=== PATIENT | female | born 1940 | race Caucasian/White ===

== ENCOUNTER 2023-01-15 09:28 | Day surgery (SDC) | payer OTHER, SELFPAY ==
[2023-01-15] MEDS: SODIUM CHLORIDE 0.9 % (FLUSH) 10 ML SYRINGE IVF (09:45)
[2023-01-15] MEDS: LACTATED RINGERS 1000 ML 1,000 ML 100 ML IV (09:45)
[2023-01-15 09:53] VITALS: BP 140/92; PULSE 72; RESP 16; TEMP 36.6; O2SAT 92; BMI 24.8
--- NOTE | 2023-01-15 09:56 | SUR.PREOP ---
Patient provided home covid negative results to RN.
--- NOTE | 2023-01-15 11:00 | CRLHL7_ITS ---
For Patients: As a result of the Century Cures Act, medical imaging exams and procedure reports are released immediately into your electronic medical record. You may view this report before your referring provider. If you have questions, please contact your health care provider. Indication: RIGHT FIRST MPJ FUSION Technique: Four fluoroscopic images of the right foot. Fluoroscopic time 12.4 seconds. IMPRESSION: Fluoroscopic guidance for fusion across the 1st MTP joint. Hardware about the 5th metatarsal and 2nd/3rd metatarsal heads. Localization of the 4th MTP joint. Dictated by Adrian Mcdonough MD @ 01/15/2023 1:20:50 PM (Electronically Signed)
[2023-01-15] MEDS: BUPIVACAINE 0.5% 30 ML INJECTION (11:28)
--- NOTE | 2023-01-15 11:43 | SUR.OPER ---
TIME OUT PERFORMED PRIOR TO INJECTION OF THE LOCAL IN THE RIGHT FOOT AT 11:27. PATIENT QUESTIONS ANSWERED SATISFACTORILY PREOPERATIVELY.? PATIENT BROUGHT TO OR #1 PER CART.? Patient positioned supine on OR #1 bed.? The perioperative?team supported arms bilaterally on arm boards.? Final approval of positioning by surgeon.
--- NOTE | 2023-01-15 12:15 | W.ANESCHARGE ---
Anesthesia Charges Start Date/Time Anesthesia Start Date: 01/15/23 Anesthesia Start Time: 11:26 Stop Date/Time Anesthesia Stop Date: 01/15/23 Anesthesia Stop Time: 13:11 Summary Extremes of Age - Over 70 or under 1: MDA
[2023-01-15 13:09] VITALS: BP 151/83; PULSE 57; RESP 16; TEMP 36.2; O2SAT 95
--- NOTE | 2023-01-15 13:13 | W.ANESCHARGE ---
Anesthesia Charges Start Date/Time Anesthesia Start Date: 01/15/23 Anesthesia Start Time: 11:26 Stop Date/Time Anesthesia Stop Date: 01/15/23 Anesthesia Stop Time: 13:11
[2023-01-15 13:15] VITALS: BP 158/82; PULSE 62; RESP 16; TEMP 36.4; O2SAT 96
[2023-01-15 13:30] VITALS: BP 175/98; PULSE 67; RESP 16; O2SAT 97
[2023-01-15 13:45] VITALS: BP 172/107; PULSE 67; RESP 16; TEMP 36.4; O2SAT 97
[2023-01-15 14:00] VITALS: BP 162/88; PULSE 69; RESP 16; O2SAT 99
--- NOTE | 2023-01-15 15:20 | P.GSOP_ITS ---
Operative Note Date of procedure: 01/15/23 Pre-op diagnosis: 1. Hallux valgus with bunion right 2. Hammertoe 4th digit right foot Post-op diagnosis: 1. Hallux valgus with bunion right 2. Hammertoe 4th digit right foot Type of Procedure: 1. First MPJ fusion right foot 2. Hammertoe correction 4th digit right foot Indications: Patient was seen on multiple occasions for right foot pain. She feels it has gotten to be unbearable and she has failed conservative efforts. She would like to proceed with surgical correction. Reviewed the procedure, recovery, expe ctations and potential complications. These include but are not limited to: Poor wound healing, infection, scarring, continued pain, potential need for future surgery, deep venous thrombosis, pulmonary embolism and possible . She understands risks, all questions answered and written consent was obtained. Procedure Description: After discussing the risks and benefits of the procedure, the patient signed informed consent.? The operative site was marked and the patient was brought to the operating room and placed on the operating table in supine position.? Care was taken to pad the patient's pressure points.?? The patient was then given sedation by anesthesia.?? The operative site was then prepped and draped in the usual sterile fashion.? A time-out was then performed. The right foot was in exsanguinated and the ankle tourniquet inflated to 250 mm Hg. A dorsal linear incision was made over the 1st metatarsophalangeal joint. Incis ion was carried down through the skin and subcutaneous tissues. A linear capsular incision was made with 1st MPJ. Capsular tissues reflected away from the proximal phalanx and 1st metatarsal. Sagittal saw was used to remove prominent medial bone from 1st metatarsal head. Guide pin was then placed in the 1st metatarsal head and cartilage and subchondral bone removed an 18 mm Reamer. Guide pin was removed and placed in the base of the proximal phalanx. Using the corresponding 18 mm Reamer the cartilage and subchondral bone were removed. Wound was irrigated normal sterile saline. In the K-wire the opposing fusion sites were fenestrated. Fusion sites were then held together and anatomic alignment simulating weight-bearing. Temporary fixation K-wire was placed from medial proximal to distal lateral. C-arm images confirmed excellent position and simulated weight-bearing confirmed excellent position. Guide pin was placed distal medial to proximal lateral across the fusion. 3.0 mm cannulated headless screw was inserted excellent compression noted across the fusion site. A dorsal 6 hole plate was then applied with 3 locking screws distal 1 locking screw proximal and 1 nonlocking screw proximal for. First metatarsal head was remodeled using rubor. Wound was thoroughly irrigated normal sterile saline. C-arm confirmed excellent position. Capsular tissues were reapproximated with 3-0 Vicryl subcutaneous tissues reapproximated 4-0 Monocryl and skin closed with 4-0 Prolene. Linear incision was made with metatarsophalangeal joint 4th toe. Blunt dissection was carried down to the extensor tendon. Tendon was extremely tight and 5 mm section releasing the tendons. Transverse incision made across the joint capsule and the lateral, medial and dorsal joint capsule released. Toe position improved but was not yet satisfactory. The cock-up toe did not seem to be result tight skin and thus I did not do a V-Y skin plasty. Simulating weight-bearing the toe sits in a rectus position. Semi elliptical incision was made over the dorsal PIPJ 4th toe. Callus tissue ellipsed and removed. Transverse incision made through extensor tendon and the mediolateral collateral ligaments released. Oscillating saw was used to resect the head of the proximal phalanx and base of the middle phalanx. Wound was thoroughly irrigated normal sterile saline. 0.045 smooth K-wire was introduced into the base of the middle phalanx driven out the tip of the toe. K-wire was then driven retrogradely back into the proximal phalanx with the fusion site tight. C-arm confirmed position. K-wire was bent cut and capped. Extensor tendon at the PIPJ reapproximated with 4-0 Vicryl. Subcutaneous tissues reapproximated 4-0 Monocryl and skin reapproximated with 4-0 Prolene. Sterile dressings were then applied.The patient was then woken and transported to the recovery area in stable condition. ? The patient tolerated the procedure well. Findings: Complications: None apparent Implants: Arthrex 6 hole 1st MPJ fusion plate, 3.0 mm locking screws x4 and 3.0 mm nonlocking screw x1, 3.0 cannulated headless screw x1, 0.045 smooth K-wire x1. l Anesthesia: MAC Surgeon: Hossein Brooks DPM Estimated blood loss (mL): 5 Condition: stable Disposition: same day
== END 2023-01-15 14:30 | disposition home or self-care (01) ==
PROVIDERS: PCP Family Medicine; Visit Provider Podiatrist
PROC: (CPT 28740; principal; 2023-01-15 11:00)
PROC: (CPT 28285; 2023-01-15 11:00)
DX: M20.11 Hallux valgus (acquired), right foot (principal); M20.41 Other hammer toe(s) (acquired), right foot; M21.611 Bunion of right foot
CPT/HCPCS: 28750; 28285; 01480; 73620; 99100; A4580; C1713; J2704; J3010; J3490; J7120

== ENCOUNTER 2025-07-16 09:49 | Emergency (ER) | payer OTHER, SELFPAY ==
--- OUTSIDE RECORDS SUMMARY | 2025-06-10 11:50 | XMS_ITS | Encounter Summary ---
Author Organization [facility] Address [address] [place] [address]. [place] [address] Care Team Providers Care Internet Researcher Name Role Phone Omar Sousa MD Primary Care Provider [phone] Reason for Visit * Auth/Cert Specialty Diagnoses / Procedures Referred By Nini sigala Referred To Contact Surgery Diagnoses Gross hematuria Gross hematuria [R31.0] Procedures GA CYSTOSCOPY W TX MINOR LESION <0.5 CM GA CYSTOURETHROSCOPY,FULGUR .5-2CM LE* GA CYSTOURETHROSCOPY,FULGUR 2-5CM LESN GA CYSTOURETHROSCOPY,FULGUR >5CM LESN GA CYSTOSCOPY,INSERT URETERAL STENT GA CYSTOURETHROSCOPY W URETERAL CATH GA UROGRAPHY, RETROGRADE W/WO KUB Cystoscopy, transurethral resection of bladder tumor bilateral retrogrades, possible right ureteral stent placement Rafiq He MD [facility] [address] [facility] [place] [address] Phone: tel: fax: [facility] [address], [address] [place] [address] Phone: tel: Referral ID Status Reason Start Date Expiration Date Visits Re quested Visits Authorized [id number] 1 1 Encounter Details Date Type Department Care Team (Latest Contact Info) Description 06/10/2025 11:50 AM CDT - 06/10/2025 6:39 PM CDT Hospital Encounter [facility] [address], [address] [place] [phone] Rafiq He MD [facility] [address] [id number] Bladder tumor (Primary Dx) Discharge Disposition: Home or Self Care Social History Tobacco Use Types Packs/Day Years Used Date Smoking Tobacco: Never Passive Smoke Exposure: Never Smokeless Tobacco: Never Tobacco Cessation:Counseling Given: Not Answered Alcohol Use Standard Drinks/Week Comments Never 0 (1 standard drink = 0.6 oz pur e alcohol) Interpersonal Safety Answer Date Record ed Do you feel physically and e motionally safe where you currently live? Yes 06/10/2025 Within the past 12 months, h ave you been hit, slapped, kicked or otherwise physically hurt by someone? No 06/10/2025 Within the past 12 months, h ave you been humiliated or emotionally abused in other ways by your partner or ex-partner? No 06/10/2025 Comments No Sex and Gender Information Value Date Recorded Sex Assigned at Not on file Legal Sex Female 3:45 AM [employer] Gender Identity Not on file Sexual Orientation Not on file documented as of this encounter Last Filed Vital Signs Vital Sign Reading Time Taken Comments Blood Pressure 171/96 06/10/2025 6:29 PM CDT Pulse 80 06/10/2025 6:29 PM CDT Temperature 36.2 C (97.2 F) 06/10/2025 6:29 PM CDT Respiratory Rate 14 06/10/2025 6:29 PM CDT Oxygen Saturation 96% 06/10/2025 6:29 PM CDT Inhaled Oxygen Concentration - - Weight 55.7 kg (122 lb 14.4 oz) 025 12:09 PM CDT Height 156.2 cm (5' 1.5) 06/10/2025 12 :09 PM CDT Body Mass Index 22.85 06/10/2025 12:09 PM CDT documented in this encounter Discharge Instructions * Discharge Instructions* Wilmar Edouard RN - 06/10/2025 4:37 PM CDT Same Day Surgery Discharge Instructions for Sedation and General Anesthesia It's not unusual to feel dizzy, light-headed or faint for up to 24 hours after surgery or while taking pain medication. If you have these symptoms: sit for a few minutes before standing and have someone assist you when you get up to walk or use the bathroom. You should rest and relax for the next 24 hours. We recommend you make arrangements to have an adult stay with you for at least 24 hours after your discharge. Avoid hazardous and strenuous activity. DO NOT DRIVE any vehicle or operate mechanical equipment for 24 hours following the end of your surgery. Even though you may feel normal, your reactions may be affected by the medication you have received. Do not drink alcoholic beverages for 24 hours following surgery. Slowly progress to your regular diet as you feel able. It's not unusual to feel nauseated and/or vomit after receiving anesthesia. If you develop these symptoms, drink clear liquids (apple juice, freddie ligia, broth, 7-up, etc. ) until you feel better. If your nausea and vomiting persists for 24 hours, please notify your surgeon. All narcotic pain medications, along with inactivity and anesthesia, can cause constipation. Drinking plenty of liquids and increasing fiber intake will help. For any questions of a medical nature, call your surgeon. Do not make important decisions for 24 hours. If you had general anesthesia, you may have a sore throat for a couple of days related to the breathing tube used during surgery. You may use Cepacol lozenges to help with this discomfort. If it worsens or if you develop a fever, contact your surgeon. If you feel your pain is not well managed with the pain medications prescribed by your surgeon, please contact your surgeon's office to let them know so they can address your concerns. Today you were given 975 mg of Tylenol at 1:00 PM. The recommended daily maximum dose is 4000 mg. Today you received Toradol, an antiinflammatory medication similar to Ibuprofen. You should not take other antiinflammatory medication, such as Ibuprofen, Motrin, Advil, Aleve, Naprosyn, etc until 11:00 PM. Cystoscopy and Stent Placement Discharge Instructions During surgery, a stent was placed in the ureter. The ureter is the tube that drains urine from thekidney to the bladder. The stent is placed to dilate (open) the ureter so the stone fragments can pass easily through the ureter or to decrease ureteral swelling after surgery, or to relieve an obstruction. The stent is made of rubber. The upper end of the stent curls in the kidney while the lower end rests in the bladder Diet: Return to the diet that you were on before the procedure, unless you are given specific diet instructions. It is important to drink 6-8 glasses of fluids per day at home - at least 3-4 glasses should be water. Activity: Walk short distances and increase as your strength allows. You may climb stairs. Do not do strenuous exercise or heavy lifting until approved by surgeon. Do not drive while taking narcotic pain medications. Bathing: You may take a shower. While the stent is in place you may experience the following symptoms: Blood and/or small blood clots in urine. Bladder spasm (frequency and urgency of urination). Discomfort or aching in the back or side where the stent is. Burning or discomfort at the end of urine stream. To decrease these symptoms you should: Take pain medication as prescribed. Drink plenty of fluids. If you experience pain at the end of urination try not emptying your bladder completely. If having discomfort in back or side, decrease activity. Call your physician if these signs/symptoms are present: Pain that is not relieved by a short rest or ordered pain medications. Temperature at or above 101.0??F or chills. Inability or difficulty urinating. Excessive blood in urine. Any questions or concerns. DISCHARGE INSTRUCTIONS FOR CATHETER CARE AT HOME . Basic Catheter Care Always wash hands before and after handling your catheter. Use soap and water to wash the area around your catheter. Do this procedure twice a day. Proper cleansing will help keep the area from becoming irritated or infected. Leg Bag This is a small plastic bag that collects urine draining from your catheter and then strapped around your thigh. It will need to be emptied when the bag is 1/2 to 3/4 full. Large Drainage Bag This bag is larger than the leg bag and holds more urine. It is to be used while at home, especially at night. Before you go to bed, change the leg bag to the large drainage bag. Pinch off the catheter with your fingers and swab the connection between the catheter and leg bag with alcohol sponge. Disconnect the leg bag and connect the large drainage bag to your catheter. When you get into bed, arrange the drainage tubing so that it doesn???t kink. Be sure to keep the bag below the level of your bladder and allow enough slack for turning. Cleaning Your Drainage Bags Wash hands. Using funnel or syringe, fill the bag half full with a solution of 1/2 vinegar and 1/2 water. Shake bag, allowing mixture to cleanse inside of bag. Empty out all vinegar and water mixture from your bag. Hang bag to dry when not in use. Clean your bags anytime you change them. Helpful Hints Always keep drainage bags below bladder level to insure adequate drainage. Drink 4-6 glasses of water daily along with other fluids you normally drink to keep urine free of infection and / or clots. If you notice no urine in your bag for 2 to 4 hours or you develop extreme discomfort in bladder area, your catheter maybe plugged. Notify your doctor. If you notice your urine becomes foul smelling and cloudy, notify your doctor. Also notify your doctor if you develop fever or chills. If you notice urine leaking around the outside of the catheter, check to be sure catheter or tubingis not kinked. Don???t use leg bag while in bed. If you have questions or concerns about your procedure, call Dr. He at [phone] documented in this encounter Medications at Time of Discharge acetaminophen (TYLENOL) [address] 650 mg rectally every 8 hours as needed for fever. artificial tears OINT ophthalmic ointment Place into both eyes as needed for dry eyes. Biotin 5000 MCG CAPS Take by mouth. Cholecalciferol (VITAMIN D3) 50 MCG (2000 UT) CAPS Take by mouth. docusate sodium (COLACE) 100 MG capsule Take 100 mg by mouth 2 times daily. furosemide (LASIX) 20 MG tablet Take 20 mg by mouth daily. losartan (COZAAR) 25 MG tablet Take 25 mg by mouth daily. metoprolol succinate ER (TOPROL XL) 25 MG 24 hr tablet Take 25 mg by mouth daily. multivitamin, therapeutic with minerals (THERA-VIT-M) TABS Take 1 tablet by mouth daily. pravastatin (PRAVACHOL) 10 MG tablet Take 10 mg by mouth daily. psyllium 400 MG capsule Take 5 capsules by mouth daily. TRAZODONE HCL PO Take 50 mg by mouth At Bedtime. Takes 1/2 of 100 mg tab cephALEXin (KEFLEX) 500 MG capsuleIndication s:Bladder tumor Take 1 capsule (500 mg) by mouth 2 times daily for 6 doses. 6 capsule 06/10/2025 5 documented as of this encounter Progress Notes * Chase Gillette RN - 06/10/2025 6:33 PM CDT Pt hypertensive post op, MDA made aware that she is due for her regular dose of metoprolol this evening. OK with her resuming normal schedule of BP meds at home and OK to discharge from phase II documented in this encounter Nursing Notes * Garret Corley RN - 06/10/2025 5:51 PM CDT Pt's bladder spasms not improving s/p oral Levsin and IV fentanyl. Pt desats to 88% RA and now using a Incentive spirometer. Discussed with Dr He about other options for her bladder spasms. Rafa recommends a B&O suppository to see how she does and then she will e-scribe a oxybutin Rx to [facility] pharmacy in [place]. If pt unable to discharge home then recall Dr He to admitpt. [facility] PACU charge aware. * Wilmar Edouard RN - 06/10/2025 5:24 PM CDT Meek cath cares with ladan Spencer at bedside- good clean technique observed- verbalizes understanding, denies questions- doesn't want leg bag for meek- documented in this encounter Miscellaneous Notes * Op Note - Rafiq He MD - 06/10/2025 3:13 PM CDT UROLOGY OPERATIVE REPORT PREOP DIAGNOSIS (D49.4) Bladder tumor (primary encounter diagnosis) Plan: cephALEXin (KEFLEX) 500 MG capsule POSTOP DIAGNOSIS Same ANESTHESIA General PROCEDURE Procedure(s): Cystoscopy, transurethral resection of bladder tumor bilateral retrogrades, and right ureteral stent placement STAFF Certified Credit Counselor: Chadd Sarabia, CARYN; Grace Burk RN Relief Scrub: Nicole Nava Scrub Person: Simran Costa Noel SURGEON Surgeon(s): Rafiq He MD FINDINGS Bladder tumors at the right bladder wall approximately 3 to 4 cm in size, signs of radiational cystitis throughout the bladder. EBL 30cc TECHNIQUE: Swapna is an 85-year-old female with a history of bladder tumor at the right ureteral orifice who presents for the above procedure with the risks of bleeding infection injury need for additional surgery. She would like to proceed. She although she also understand there is a risk of bladder perforation and need for Meek catheter postop. Details of the procedure. Swapna was brought to the operating room placed in supine position after excellent induction of general anesthesia, her perineum was prepped and draped in regular fashion. 22 Kuwaiti cystoscope was placed per her urethra. Evaluation of the bladder did demonstrate to tumorgrowth at the right bladder wall 1 cm away from the right ureteral orifice. I did obtain bilateral retrogrades that demonstrated no hydronephrosis no hydro ureters bilaterally. My concern that my resection might compromise your right ureteral orifice. So I placed 6 x 24 double-J ureteral stent overthe Glidewire on the right side under fluoroscopic guidance. Using 26 Kuwaiti sheath resectoscope I proceeded with the resection of the 2 tumors localized to theright bladder wall. At the completion of resection I did not see any gross tumor present. I also made sure that I went through the muscular layer of the bladder to harvest deep tissue. At the completion of the procedure good hemostasis was achieved 22 Kuwaiti Meek catheter was placed and patient was transferred to the recovery in stable condition. The plan is of now to remove your Meek catheter and stent in 5 days. Follow-up on the results of pathology. Rafiq He MD documented in this encounter Plan of Treatment Not on file documented as of this encounter Goals Goal Patient Goal Type Associated Problems Recent Progress Patient-Stated? Author MYC ECC SURG ENROLL Care Plan MyC ECC SURG ENROLL No Pranav Hauser documented as of this encounter Procedures Procedure Name Priority Date/Time Associated Diagnosis Comments EKG 12-LEAD, TRACING ONLY STAT 06/10/2025 4:27 PM CDT XR SURGERY JESSICA FLUORO LESS THAN 5 MIN W STILLS Routine 06/10/2025 3:59 PM CDT SURGICAL PATHOLOGY EXAM Routine 06/10/2025 3:32 PM CDT CYSTOSCOPY,INSERT URETERAL STENT 06/10/2025 2:51 PM CDT Gross hematuria Case Notes * Special Needs *60minAdded within 14 days: severity of dx Sitnikova will run jessica CYSTOSCOPY, WITH RETROGRADE PYELOGRAM 06/10/2025 2:51 PM CDT Gross hematuria Case Notes * Special Needs *60minAdded within 14 days: severity of dx Sitnikova will run jessica CYSTOSCOPY, WITH TRANSURETHRAL RESECTION BLADDER TUMOR 06/10/2025 2:51 PM CDT Gross hematuria Case Notes * Special Needs *60minAdded within 14 days: severity of dx Sitnikova will run jessica documented in this encounter Results * EKG 12-lead, tracing only (06/10/2025 4:27 PM CDT) Systolic Blood Pressure mmHg RADIOLOGY RESULTS Diastolic Blood Pressure mmHg RADIOLOGY RESULTS Ventricular Rate 63 BPM RAD IOLOGY RESULTS Atrial Rate 63 BPM RADIOLOG Y RESULTS GA Interval 134 ms RADIOLOG Y RESULTS QRS Duration 82 ms RADIOLO GY RESULTS QT 396 ms RADIOLOGY RESULTS QTc 405 ms RADIOLOGY RESULTS P [place] 41 degrees RADIOLOGY RESULTS R AXIS 11 degrees RADIOLOGY RESULTS T [place] 7 degrees RADIOLOGY RESULTS Interpretation ECG Sinus rhythm with Premature supraventricular complexes Otherwise normal ECG When compared with ECG of 17-Dec-2011 13:03, PACs are now present Confirmed by MD DEBI, ALEXOS ([id number]) on 06/11/2025 12:52:27 PM RADIOLOGY RESULTS 06/10/2025 4:27 PM CDT 06/11/2025 12:52 PM CDT us Darcie Gomes MD ECG ORDERABLES Edited Result - Final RADIOLOGY RESULTS * XR Surgery JESSICA L/T 5 Min Fluoro w Stills (06/10/2025 3:59 PM CDT) Narrative [facility] - 06/10/2025 4:00 PM CDT This exam was marked as non-reportable because it will not be read by a radiologist or a [facility] non-radiologist provider. us Rafiq He MD IMG DIAGNOSTIC IMAGING OR DERABLES Final Result [facility] * Surgical Pathology Exam (06/10/2025 3:32 PM CDT) Case Report Surgical Pathology Report Case: [id number] Authorizing Provider: Rafiq He MD Collected: 06/10/2025 03:32 PM Ordering Location: [facility] Received: 06/11/2025 06:14 AM [facility] Main OR Pathologist: Igor Aguilar MD Specimen: Urinary Bladder, Bladder Tumor 06/15/2025 5:04 PM CDT LABORATORY Final Diagnosis A. 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 Urinary Bladder, Bladder Tumor: The specimen is received in formalin, labeled with the patient's name, medical record number and other identifying information designated bladder tumor . It consists of a 2.2 x 1.5 x 0.4 cm aggregate of toro-pink soft tissue fragments which are filtered and submitted entirely in 2 cassettes.. (LOTTIE Swanson (ASCP) 06/11/2025 8:03 AM 06/15/2025 5:04 PM CDT LABORATORY Microscopic Description Microscopic examination is performed with findings supportive of the diagnosis as noted. 06/15/2025 5:04 PM T LABORATORY Performing Labs The technical component of this testing was completed at [facility]. Stain controls for all stains resulted within this report have been reviewed and show appropriate reactivity. 06/15/2025 5:04 PM T LABORATORY Case Images 06/15/2025 5:04 PM T LABORATORY Tissue URINARY BLADDER STRUCTURE / Unknown 06/10/2025 3:32 PM CDT 06/11/2025 6:14 AM CDT us Rafiq SALGADO - DANA BARNETT Final Res ult LABORATORY [facility] [address] 1[address] floor, [address] [place] [address], [facility] [phone] documented in this encounter Visit Diagnoses Diagnosis Bladder tumor- Primary Neoplasm of unspecified nature of bladder documented in this encounter Administered Medications Inactive Administered Medications - up to 3 most recent administrations Medication Order MAR Action Action Date Dose Rate Site acetaminophen (TYLENOL) tablet 975 mg 975 mg, Oral, ONCE, On Sun06/10/25 at 1230, For 1 dose, Maximum acetaminophen dose from all sources = 75 mg/kg/day not to exceed 4 grams/day., Pre-procedure $Given 06/10/2025 12:54 PM CDT 975 mg fentaNYL (PF) (SUBLIMAZE) injection 50 mcg 50 mcg, Intravenous, EVERY 5 MIN PRN, severe pain, Give fentaNYL (SUBLIMAZE) first if HYDROmorphone (DILAUDID) also ordered., Starting on Sun06/10/25 at 1555, Administer fentaNYL (SUBLIMAZE) for acute pain control. Move to HYDROmorphone (DILAUDID): - IF patient has received up to 200 mcg of fentaNYL (SUBLIMAZE), OR - IF patient has received 2 doses of fentaNYL (SUBLIMAZE) AND continues to have severe pain (pain score greater than or equal to seven (7) or is unable to participate in post op recovery due to pain. Wait 5 minutes AFTER last fentaNYL (SUBLIMAZE) dose before administering HYDROmorphone (DILADUDID). Postop Anesthesia Phase I only. Notify Provider to assess for uncontrolled pain or analgesic side effects. DO NOT revert back to fentanyl (SUBLIMAZE) after administering HYDROmorphone (DILAUDID)., PACU $Given 06/10/2025 5:18 PM CDT 50 mcg $Given 06/10/2025 4:28 PM CDT 50 mcg $Given 06/10/2025 4:14 PM CDT 50 mcg hyoscyamine (LEVSIN/SL) sublingual tablet 125 mcg 125 mcg, Sublingual, ONCE, On Sun06/10/25 at 1700, For 1 dose, Patients using antacids should take hyoscyamine before meals and the antacid after meals., PACU $Given 06/10/2025 4:48 PM CDT 125 mcg iopamidol (ISOVUE-300) IV solution 61% PRN, Starting on Sun06/10/25 at 1527, Intra-procedure $Given 06/10/2025 3:27 PM CDT 20 mLs Operative Site/Surgical Site ketorolac (TORADOL) injection 15 mg 15 mg, Intravenous, ONCE, On Sun06/10/25 at 1700, For 1 dose, Can cause pain on injection. If ordered intravenously (IV) : administer through a running maintenance fluid over 1 minute followed by a flush. If patient complains of pain on injection, may dilute 15-30 mg in 5 mL and push over 1 to 2 minutes., PACU $Given 06/10/2025 4:52 PM CDT 15 mg lactated ringers infusion at 100 mL/hr, Intravenous, CONTINUOUS, Continue until IV catheter is weaned, PACU, Starting on Sun06/10/25 at 1600, Until Sun06/10/25 at 1828 $New Bag 06/10/2025 5:22 PM CDT 100 mL/hr opium-belladonna (B&O SUPPRETTES) 30-16.2 MG per suppository 1 suppository 1 suppository (30 mg), Rectal, ONCE, On Sun06/10/25 at 1830, For 1 dose, PACU $Given 06/10/2025 6:16 PM CDT 1 suppository sodium chloride 0.9% (bottle) irrigation PRN, Starting on Sun06/10/25 at 1512, Intra-procedure $Given 06/10/2025 3:12 PM CDT 1,000 mLs sodium chloride 0.9% irrigation (bag) PRN, Starting on Sun06/10/25 at 1512, Intra-procedure $Given 06/10/2025 3:34 PM CDT 3,000 mLs Operative Site/Surgical Site $Given 06/10/2025 3:12 PM CDT 3,000 mLs Op erative Site/Surgical Site documented in this encounter Active and Recently Administered Medications Times are shown in CDT. Scheduled Medication Order 06/08/2025 06/09/2025 06/10/2025 acetaminophen (TYLENOL) tablet 975 mg (COMPLETED)(Linked Group 1) 975 mg, Oral, ONCE, On Sun06/10/25 at 1230, For 1 dose, Maximum acetaminophen dose from all sources = 75 mg/kg/day not to exceed 4 grams/day., Pre-procedure 1254 ($Given - Provi ramesh: Pura Richards RN) ceFAZolin Sodium (ANCEF) injection 2 g (COMPLETED) Routine, 2 g, Intravenous, PRE-OP/PRE-PROCEDURE, Starting on Sun06/10/25 at 1203, For 1 dose, Give first dose within 1 hour PRIOR to incision. If patient weight is greater than or equal to 120 kg increase dose to 3 g., Indications: Perioperative Pharmacoprophylaxis, Pre-procedure 1455 ($Given - Provi ramesh: Munira Alegre APRN SUPERVISOR TYPESETTING) hyoscyamine (LEVSIN/SL) sublingual tablet 125 mcg (COMPLETED) 125 mcg, Sublingual, ONCE, On Sun06/10/25 at 1700, For 1 dose, Patients using antacids should take hyoscyamine before meals and the antacid after meals., PACU 1648 ($Given - Provi ramesh: Wilmar Edouard, CARYN) ketorolac (TORADOL) injection 15 mg (COMPLETED) 15 mg, Intravenous, ONCE, On Sun06/10/25 at 1700, For 1 dose, Can cause pain on injection. If ordered intravenously (IV) : administer through a running maintenance fluid over 1 minute followed by a flush. If patient complains of pain on injection, may dilute 15-30 mg in 5 mL and push over 1 to 2 minutes., PACU 1652 ($Given - Provi ramesh: Wilmar Edouard, CARYN) opium-belladonna (B&O SUPPRETTES) 30-16.2 MG per suppository 1 suppository (COMPLETED) 1 suppository (30 mg), Rectal, ONCE, On Sun06/10/25 at 1830, For 1 dose, PACU 1816 ($Given - Provi ramesh: Garret Corley RN) Continuous Medication Order 06/08/2025 06/09/2025 06/10/2025 lactated ringers infusion (CANCELED) at 100 mL/hr, Intravenous, CONTINUOUS, Continue until IV catheter is weaned, PACU, Starting on Sun06/10/25 at 1600, Until Sun06/10/25 at 1828 1722 ($New Bag - Pro vider: Wilmar Edouard, CARYN) PRN Medication Order 06/08/2025 06/09/2025 06/10/2025 fentaNYL (PF) (SUBLIMAZE) injection 50 mcg (CANCELED) 50 mcg, Intravenous, EVERY 5 MIN PRN, severe pain, Give fentaNYL (SUBLIMAZE) first if HYDROmorphone (DILAUDID) also ordered., Starting on Sun06/10/25 at 1555, Administer fentaNYL (SUBLIMAZE) for acute pain control. Move to HYDROmorphone (DILAUDID): - IF patient has received up to 200 mcg of fentaNYL (SUBLIMAZE), OR - IF patient has received 2 doses of fentaNYL (SUBLIMAZE) AND continues to have severe pain (pain score greater than or equal to seven (7) or is unable to participate in post op recovery due to pain. Wait 5 minutes AFTER last fentaNYL (SUBLIMAZE) dose before administering HYDROmorphone (DILADUDID). Postop Anesthesia Phase I only. Notify Provider to assess for uncontrolled pain or analgesic side effects. DO NOT revert back to fentanyl (SUBLIMAZE) after administering HYDROmorphone (DILAUDID)., PACU 1604 ($Given - Provi ramesh: Wilmar Edouard RN)1614 ($Given - Provider: Wilmar Edouard RN)1628 ($Given - Provider: Wilmar Edouard RN)1718 ($Given - Provider: Wilmar Edouard RN) iopamidol (ISOVUE-300) IV solution 61% PRN, Starting on Sun06/10/25 at 1527, Intra-procedure 1527 ($Given - Provi ramesh: Rafiq He MD) sodium chloride 0.9% (bottle) irrigation PRN, Starting on Sun06/10/25 at 1512, Intra-procedure 1512 ($Given - Provi ramesh: Rafiq He MD) sodium chloride 0.9% irrigation (bag) PRN, Starting on Sun06/10/25 at 1512, Intra-procedure 1512 ($Given - Provi ramesh: Rafiq He MD)1534 ($Given - Provider: Rafiq He MD) Linked Groups Order Group 1: acetaminophen (TYLENOL) tablet 975 mg (COMPLETED)Jump to med 975 mg, Oral, ONCE, On Sun06/10/25 at 1230, For 1 dose, Maximum acetaminophen dose from all sources = 75 mg/kg/day not to exceed 4 grams/day., Pre-procedure Or acetaminophen (TYLENOL) Suppository 650 mg (COMPLETED) 650 mg, Rectal, ONCE, On Sun06/10/25 at 1230, For 1 dose, Maximum acetaminophen dose from all sources = 75 mg/kg/day not to exceed 4 grams/day., Pre-procedure documented in this encounter Additional Health Concerns Active Problems Noted Date Diagnosed Date MyC ECC SURG ENROLL 06/04/2025 documented as of this encounter Care Teams Internet Researcher Relationship Specialty Start Date End Date Omar Sousa MD [address] [place] [address] PCP - General Sports Medicine 06/05/25 documented as of this encounter
--- OUTSIDE RECORDS SUMMARY | 2025-06-10 14:52 | XMS_ITS | Encounter Summary ---
Author Organization [facility] Address [address] [place], [place] [address]. [place] [address] Care Team Providers Care Furnace Loader Name Role Phone Omar Sousa MD Primary Care Provider Reason for Visit * Auth/Cert Specialty Diagnoses / Procedures Referred By Nini sigala Referred To Contact Surgery Diagnoses Gross hematuria Gross hematuria [R31.0] Procedures UT CYSTOSCOPY W TX MINOR LESION <0.5 CM UT CYSTOURETHROSCOPY,FULGUR .5-2CM LE* UT CYSTOURETHROSCOPY,FULGUR 2-5CM LESN UT CYSTOURETHROSCOPY,FULGUR >5CM LESN UT CYSTOSCOPY,INSERT URETERAL STENT UT CYSTOURETHROSCOPY W URETERAL CATH UT UROGRAPHY, RETROGRADE W/WO KUB Cystoscopy, transurethral resection of bladder tumor bilateral retrogrades, possible right ureteral stent placement Rafiq He MD [facility] [address] [place] [address] Phone: tel: fax: [facility] [address] [place] [address] Phone: tel: Referral ID Status Reason Start Date Expiration Date Visits Re quested Visits Authorized [id number] 1 1 Encounter Details Date Type Department Care Team (Late st Contact Info) Description 06/10/2025 2:52 PM CDT Anesthesia Event [facility] [address], [address] [place] [address] Darcie Gomes MD [facility] [address] [id number] Justa Lombardo APRN STRUCTURAL IRON WORKER [address] [id number] Anesthesia Record Procedure Summary Procedure Name Responsible Anesthesiologist Anesthesia Start Time Anesthesia Stop Time Cystoscopy, transurethral resection of bladder tumor (Urethra) Darcie Gomes MD 06/10/25 1452 06/10/25 1559 Events Date Time Event Comment 06/10/2025 1317 1343 STRUCTURAL IRON WORKER Ready for Procedure 1452 An Start Anesthesia Star t is defined as when the anesthesia provider assumed care, began anesthesia prep, remained continuously present with the patient, and excludes all time for performing the pre-anesthesia evaluation. The Pre-Anesthesia Evaluation was completed before Anesthesia Start. 1452 An Start Data 1454 AN REASSESS I attest that I have identified and re-evaluated the patient immediately before the induction of anesthesia and I am satisfied that the anesthetic plan is suitable for the patient's condition and procedure. The first vital signs recorded are pre-induction. Munira Alegre APRN STRUCTURAL IRON WORKER 1458 An Induction 1500 An LMA 1507 Anesthesia Ready for Procedu re 1513 AN INCISION 1551 LMA Removed 1553 an stop data 1559 An Stop Electronically signed by Munira Alegre APRN STRUCTURAL IRON WORKER on June 10, 2025 3:59 PM Meds Name Total fentaNYL 50 mcg/mL 100 mcg lidocaine 2% 60 mg propofol 10 mg/mL 200 mg ondansetron 2 mg/mL 4 mg ceFAZolin Sodium (ANCEF) injection 2 g 2 g LR 800 mL * Agents Name O2 N2O Air Exp Sevoflurane Exp Isoflurane Exp Desflurane O2 Delivery Device Ins Sevoflurane Ins Isoflurane Ins Desflurane O2 Auxiliary * Blood No blood administrations on file. Lines, Drains, and Airways Type Details Placement Removal Peripheral IV 12/17/11; 1400; 18 G ; Right; Lower forearm 12/17/11 1400 by Mai Little NP 06/10/25 1939 by Inpatient, Nurse Peripheral IV 06/10/25; 1305; 20 G ; Right; Hand 06/10/25 1305 by Pura Richards RN 06/10/25 1836 by Chase Gillette RN Supraglottic Airway Placement Date: 06/10/25; Placement Time: 150 (created via procedure documentation); Mask Ventilation: 0; LMA Size: 4; Airway Brand: Ambu AuraGain; Attempts: 1 06/10/25 1509 by Munira Alegre APRN STRUCTURAL IRON WORKER 06/10/25 1551 by Munira Alegre APRN STRUCTURAL IRON WORKER Urinary Drain 06/10/25; 1546; Urethral Catheter; No; Surgical procedure; 22 fr 06/10/25 1546 by Chadd Sarabia RN 06/10/25 1939 by Inpatient, Nurse documented in this encounter Social History Tobacco Use Types Packs/Day Years Used Date Smoking Tobacco: Never Passive Smoke Exposure: Never Smokeless Tobacco: Never Alcohol Use Standard Drinks/Week Comments Never 0 [...] on file 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 status CV/Hemodynamics: Uneventful Sign Out: Acceptable CV status; No obvious hypovolemia; No obvious fluid overload Other NRE: NONE DID A NON-ROUTINE EVENT OCCUR? No Last vitals: Vitals Value Taken Time BP 175/96 06/10/25 18:15 Temp Pulse 84 06/10/25 18:15 Resp 16 06/10/25 17:15 SpO2 97 % 06/10/25 18:15 Electronically Signed By: Newton Taylor DO June 10, 2025 8:39 PM * Anesthesia Procedure Notes - Munira Alegre APRN CRNA - 06/10/2025 3:08 PM CDTAssociated Order(s): Airway Airway Patient location during procedure: OR Staff - Anesthesiologist: Darcie Gomes MD STRUCTURAL IRON WORKER: Munira Alegre APRN STRUCTURAL IRON WORKER Performed By: CRNAIndications and Patient Condition Indications for airway management: carmen-procedural Induction type:intravenous Mask difficulty assessment: 0 - not attempted Final Airway Details Final airway type: supraglottic airway Supraglottic Airway Details Type: LMA Brand: Ambu AuraGain LMA size: 4 Post intubation assessment Placement verified by: capnometry, equal breath sounds and chest rise Number of attempts at approach: 1 Ease of procedure: easy Dentition: Intact and Unchanged * Anesthesia Preprocedure Evaluation - Darcie Gomes MD - 06/10/2025 11:39 AM CDT Anesthesia Pre-Procedure Evaluation Patient: Swapna Ortiz : 1940 Procedure : Procedure(s): Cystoscopy, transurethral resection of bladder tumor bilateral retrogrades, possible right ureteral stent placement Past Medical History: Diagnosis Date Acute lower GI bleeding AMD (age related macular degeneration) Aortic valve regurgitation Arthritis Bilateral pseudophakia Chronic right shoulder pain Colon polyp DDD (degenerative disc disease), lumbar Dry eye syndrome of both eyes Endometrial cancer (H) Epiphora due to insufficient drainage of both sides Fibromyalgia Fuchs' corneal dystrophy Gastric polyps Greater trochanteric bursitis of left hip Hyperlipidemia Insomnia 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 Meningioma (H) Osteopenia Pancreatic lesion Primary osteoarthritis of hips, bilateral Pseudoexfoliation of lens capsule Restless legs syndrome (RLS) Rheumatic fever Vision problems Past Surgical History: Procedure Laterality Date 5TH METATARSAL REPAIR, SUBTALAR ATHROEREISIS Right 2003 MIRIAM CAPELLAN FRACTURE Left 2006 BREAST MASS EXCISION Right 2017 BREAST REDUCTION 2003 BUNIONECTOMY Right 2022 CATARACT REMOVAL Bilateral 2014 COLONOSCOPY 2017 COLONOSCOPY 2018 COLONOSCOPY DIAGNOSTIC 2012 COLONOSCOPY DIAGNOSTIC 2013 COLONOSCOPY DIAGNOSTIC 2021 COLONOSCOPY, SCREENING 2010 HAMMER TOE REPAIR Right 2022 HAMMER TOE REPAIR Left 2012 HYSTEROSCOPY DILATION AND CURRETTAGE WITH BOYKIN & NEPHOn-Ramp Wireless MORCELLATOR 2014 LIGATE FALLOPIAN TUBE ROBOTIC ASSISTED TOTAL LAPAROSCOPIC HYSTERECTOMY, BILATERAL SALPINGO OOPHORECTOMY, AND LYMPH NODE DISSECTION AND WASHINGS 2014 TONSILLECTOMY TOOTH EXTRACTION Right 2018 TOTAL HIP ARTHROPLASTY Right 2020 TOTAL HIP ARTHROPLASTY Left 07/2024 WISDOM TEETH EXTRACTION YAG CAPSULOTOMY Bilateral 2019 Allergies Allergen Reactions Oxycodone-Acetaminophen Propoxyphene Hcl Mental Status Change Sodium Phosphate Nausea and Vomiting Social History Tobacco Use Smoking status: Never Passive exposure: Never Smokeless tobacco: Never Substance Use Topics Alcohol use: Never Wt Readings from Last 1 Encounters: 01/05/14 58.1 kg (128 lb) Anesthesia Evaluation Pt has had prior anesthetic. Type: General. No history of anesthetic complications ROS/MED HX ENT/Pulmonary: Neurologic: (-) no seizures, no CVA and migraines Cardiovascular: (+) Dyslipidemia hypertension- - - - - fainting (syncope). valvular problems/murmurs type: AI Mild.Previous cardiac testing Echo: Date: 11/07/24 Results: Final Impressions: 1. Normal left ventricular size, normal wall thickness, normal global systolic function, calculatedEF of 55 %. 2. Mildly enlarged left atrium. 3. The aortic valve is trileaflet and sclerotic, no stenosis and mild to moderate regurgitation. 4. The mitral valve is normal, mild to moderate mitral regurgitation. 5. Moderate-severe tricuspid regurgitation. 6. Moderately increased estimated pulmonary pressures by tricuspid regurgitation velocity and rightatrial pressure (44 mmHg plus RAP). Stress Test: Date: Results: ECG Reviewed: Date: Results: Cath: Date: Results: METS/Exercise Tolerance: >4 METS Hematologic: Musculoskeletal: Comment: Fibromyalgia GI/Hepatic: (-) GERD Renal/Genitourinary: Endo: Psychiatric/Substance Use: Infectious Disease: Malignancy: (+) Malignancy, History of Other.Other CA Bladder, endometrial status post. Other: Physical Exam Airway Mallampati: II TM distance: >3 FB Mouth opening: >= 4 cm Cardiovascular - normal exam Dental dental implants, bridges or caps present Pulmonary - normal examBreath sounds clear to auscultation Neurological - normal exam She appears awake, alert and oriented x3. Other Findings OUTSIDE LABS: CBC: Lab Results Component Value Date WBC 12.0 (H) 12/17/2011 HGB 11.1 (L) 12/17/2011 HCT 34.9 (L) 12/17/2011 PLT 242 12/17/2011 BMP: Lab Results Component Value Date NA 139 12/17/2011 POTASSIUM 4.8 12/17/2011 CHLORIDE 106 12/17/2011 CO2 28 12/17/2011 BUN 14 12/17/2011 CR 0.65 12/17/2011 GLC 91 12/17/2011 COAGS: Lab Results Component Value Date PTT 29 12/17/2011 INR 0.95 12/17/2011 POC: No results found for: BGM, HCG, HCGS HEPATIC: No results found for: ALBUMIN, PROTTOTAL, ALT, AST, GGT, ALKPHOS, BILITOTAL,BILIDIRECT, DANIEL OTHER: Lab Results Component Value Date LACT 0.8 12/17/2011 CHALO 8.0 (L) 12/17/2011 TSH 0.91 12/17/2011 Anesthesia Plan ASA Status: 3 NPO Status: NPO Appropriate Anesthesia Type: General. Airway: supraglottic airway. Induction: intravenous. Maintenance: Balanced. Techniques and Equipment: - Airway: Planned airway equipment includes supraglottic airway. - Monitoring Plan: standard ASA monitoring Consents Anesthesia Plan(s) and associated risks, benefits, and realistic alternatives discussed. Questions answered and patient/telesales representative(s) expressed understanding. - Discussed: - Discussed with: Patient Postoperative Care Pain management: multimodal analgesia. Comments: Darcie Gomes MD I have reviewed the pertinent notes and labs in the chart from the past 30 days and (re)examined the patient. Any updates or changes from those notes are reflected in this note. Clinically Significant Risk Factors Present on Admission # Hypertension: Home medication list includes antihypertensive(s) documented in this encounter Miscellaneous Notes * Anesthesia Care Transfer Note - Munira Alegre APRN CRNA - 06/10/2025 3:59 PM CDT Patient: Swapna Ortiz Procedure: Procedure(s): Cystoscopy, transurethral resection of bladder tumor bilateral retrogrades, and right ureteral stent placement Diagnosis: Gross hematuria [R31.0] Diagnosis Additional Information: No value filed. Anesthesia Type: General Note: Oropharynx: oropharynx clear of all foreign objects and spontaneously breathing Level of Consciousness: awake Oxygen Supplementation: face mask Level of Supplemental Oxygen (L/min / FiO2): 6 Independent Airway: airway patency satisfactory and stable Dentition: dentition unchanged Vital Signs Stable: post-procedure vital signs reviewed and stable Report to RN Given: handoff report given Patient transferred to: PACU Comments: At end of procedure, spontaneous respirations, adequate tidal volumes, followed commands to voice, LMA removed atraumatically, oropharynx suctioned, airway patent after LMA removal. Oxygen via facemask at 6 liters per minute to PACU. Oxygen tubing connected to wall O2 in PACU, SpO2, NiBP,and EKG monitors and alarms on and functioning, Diony Hugger warmer connected to patient gown, report on patient's clinical status given to SUSTAINABILITY SPECIALIST, RN questions answered. Handoff Report: Identifed the Patient, Identified the Reponsible Provider, Reviewed the pertinent medical history, Discussed the surgical course, Reviewed Intra-OP anesthesia mangement and issues during anesthesia, Set expectations for post-procedure period and Allowed opportunity for questions andacknowledgement of understanding Vitals: Vitals Value Taken Time BP 180/97 Temp Pulse 82 Resp 18 06/10/25 15:58 SpO2 100 % 06/10/25 15:58 Vitals shown include unfiled device data. Electronically Signed By: Munira Alegre APRN CRNA June 10, 2025 3:59 PM documented in this encounter Plan of Treatment Not on file documented as of this encounter Goals Goal Patient Goal Type Associated Problems Recent Progress Patient-Stated? Author MYC ECC SURG ENROLL Care Plan MyC ECC SURG ENROLL No KirbyPranav pickens Radha documented as of this encounter Procedures Procedure Name Priority Date/Time Associated Diagnosis Comments ANE AIRWAY SUPRAGLOTTIC PERFORMABLE Routine 06/10/2025 3:08 PM CDT documented in this encounter Results * ANE AIRWAY SUPRAGLOTTIC PERFORMABLE (06/10/2025 3:08 PM CDT) Narrative Munira Alegre APRN STRUCTURAL IRON WORKER - 06/10/2025 3:08 PM CDT Munira Alegre APRN STRUCTURAL IRON WORKER 06/10/2025 3:09 PM Airway Patient location during procedure: OR Staff - Anesthesiologist: Darcie Gomes MD STRUCTURAL IRON WORKER: Munira Alegre APRN STRUCTURAL IRON WORKER Performed By: CRNAIndications and Patient Condition Indications for airway management: carmen-procedural Induction type:intravenous Mask difficulty assessment: 0 - not attempted Final Airway Details Final airway type: supraglottic airway Supraglottic Airway Details Type: LMA Brand: Ambu AuraGain LMA size: 4 Post intubation assessment Placement verified by: capnometry, equal breath sounds and chest rise Number of attempts at approach: 1 Ease of procedure: easy Dentition: Intact and Unchanged Darcie Gomes MD [facility] Final Result documented in this encounter Visit Diagnoses Not on filedocumented in this encounter Administered Medications Inactive Administered Medications - up to 3 most recent administrations Medication Order MAR Action Action Date Dose Rate Site ceFAZolin Sodium (ANCEF) injection 2 g Routine, 2 g, Intravenous, PRE-OP/PRE-PROCEDURE, Starting on Sun06/10/25 at 1203, For 1 dose, Give first dose within 1 hour PRIOR to incision. If patient weight is greater than or equal to 120 kg increase dose to 3 g., Indications: Perioperative Pharmacoprophylaxis, Pre-procedureIndications:Perioperat hetal Pharmacoprophylaxis $Given 06/10/2025 2:55 PM CDT 2 g fentaNYL (PF) (SUBLIMAZE) injection Intravenous, PRN, Administer over 3-5 Minutes, Starting on Sun06/10/25 at 1458, Anesthesia Intra-op $Given 06/10/2025 3:20 PM CDT 50 mcg $Given 06/10/2025 2:58 PM CDT 50 mcg lactated ringers infusion Intravenous, CONTINUOUS PRN, Anesthesia Intra-op, Starting on Sun06/10/25 at 1452, Until Sun06/10/25 at 1559 $New Bag 06/10/2025 2:52 PM CDT lidocaine 2% injection (MDV) Intravenous, PRN, Starting on Sun06/10/25 at 1458, Anesthesia Intra-op $Given 06/10/2025 2:58 PM CDT 60 mg ondansetron (ZOFRAN) injection Intravenous, PRN, Administer over 2-5 Minutes, Starting on Sun06/10/25 at 1541, Anesthesia Intra-op $Given 06/10/2025 3:41 PM CDT 4 mg propofol (DIPRIVAN) injection 10 mg/mL vial Intravenous, PRN, Starting on Sun06/10/25 at 1458, Anesthesia Intra-op $Given 06/10/2025 3:00 PM CDT 50 mg $Given 06/10/2025 2:58 PM CDT 150 mg documented in this encounter Additional Health Concerns Active Problems Noted Date Diagnosed Date MyC ECC SURG ENROLL 06/04/2025 documented as of this encounter Care Teams Furnace Loader Relationship Specialty Start Date End Date Omar Sousa MD [address] [place] [address] PCP - General Sports Medicine 06/05/25 documented as of this encounter
--- OUTSIDE RECORDS SUMMARY | 2025-06-10 14:58 | XMS_ITS | Encounter Summary ---
Author Organization [facility] Address [address] [place], [place] [address]e. [place] [address] Care Team Providers Care Inventory Analyst Name Role Phone Omar Sousa MD Primary Care Provider [phone] Reason for Visit * Auth/Cert Specialty Diagnoses / Procedures Referred By Nini sigala Referred To Contact Surgery Diagnoses Gross hematuria Gross hematuria [R31.0] Procedures MT CYSTOSCOPY W TX MINOR LESION <0.5 CM MT CYSTOURETHROSCOPY,FULGUR .5-2CM LE* MT CYSTOURETHROSCOPY,FULGUR 2-5CM LESN MT CYSTOURETHROSCOPY,FULGUR >5CM LESN MT CYSTOSCOPY,INSERT URETERAL STENT MT CYSTOURETHROSCOPY W URETERAL CATH MT UROGRAPHY, RETROGRADE W/WO KUB Cystoscopy, transurethral resection of bladder tumor bilateral retrogrades, possible right ureteral stent placement Rafiq He MD [facility] [address] [facility] [place] [address] Phone: tel: fax: [facility] [address], [address] [place] [address] Phone: tel: Referral ID Status Reason Start Date Expiration Date Visits Re quested Visits Authorized [id number] 1 1 Encounter Details Date Type Department Care Team (Late st Contact Info) Description 06/10/2025 2:58 PM CDT - 06/10/2025 4:58 PM CDT Surgery [facility] [address], [address] [place] [address] Rafiq He MD [facility] [address] [place] [address] Cystoscopy, transurethral resection of bladder tumor Surgery Details Date/Time Status Location OR Service Patient Class Case Class Case Type Trauma Case? 06/10/2025 2:58 PM Posted OR OR M 30 Urology Same Day Surgery Elective Panel 1 Procedure LRB Anes Op Region Wound Class Comments Cystoscopy, transurethral resection of bladder tumor N/A General Urethra II-Clean Conta minated bilateral retrogrades, Bilateral General Urethra II-Jeannie n Contaminated and right ureteral stent placement Right General Urethra II-Clean Contaminated Surgeon Surgeon Role Service Panel Rafiq He MD Primary Urology 1 Case Notes * Special Needs *60minAdded within 14 days: severity of dx Neri will run jessica documented in this encounter Social History Tobacco [...] on file 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 He at [phone] documented in this encounter Medications at Time [...] she will e-scribe a oxybutin Rx to [facility] pharmacy in [place]. If pt unable to discharge home then recall Dr He to admitpt. [facility] PACU charge aware. * Wilmar Edouard RN [...] retrogrades, and right ureteral stent placement STAFF Director Of Medical Services: Chadd Sarabia, CARYN; Grace Burk RN Relief [...] prepped and draped in regular fashion. 22 Djiboutian cystoscope was placed per her urethra. Evaluation [...] right side under fluoroscopic guidance. Using 26 Djiboutian sheath resectoscope I proceeded with the resection of the 2 tumors localized to theright bladder wall. At the completion of resection I did not see any gross tumor present. I also made sure that I went through the muscular layer of the bladder to harvest deep tissue. At the completion of the procedure good hemostasis was achieved 22 Djiboutian Meek catheter was placed and patient was [...] *60minAdded within 14 days: severity of dx Neri will run jessica CYSTOSCOPY, WITH RETROGRADE PYELOGRAM [...] Atrial Rate 63 BPM RADIOLOG Y RESULTS MT Interval 134 ms RADIOLOG Y RESULTS QRS Duration 82 ms RADIOLO GY RESULTS QT 396 ms RADIOLOGY RESULTS QTc 405 ms RADIOLOGY RESULTS P Orange 41 degrees RADIOLOGY RESULTS R AXIS 11 degrees RADIOLOGY RESULTS T Orange 7 degrees RADIOLOGY RESULTS Interpretation ECG Sinus [...] be read by a radiologist or a [facility] non-radiologist provider. us Rafiq He MD IMG DIAGNOSTIC IMAGING OR DERABLES Final Result RADIANT * Surgical Pathology Exam (06/10/2025 3:32 PM CDT) Case Report Surgical Pathology Report Case: [id number] Authorizing Provider: Rafiq He MD Collected: 06/10/2025 03:32 PM Ordering Location: [facility] Received: 06/11/2025 06:14 AM [facility] Main OR Pathologist: Igor Aguilar MD Specimen: Urinary Bladder, Bladder Tumor 06/15/2025 5:04 PM CDT LABORATORY Final Diagnosis A. 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 Urinary Bladder, Bladder [...] (ASCP) 06/11/2025 8:03 AM 06/15/2025 5:04 PM T LABORATORY Microscopic Description Microscopic examination is performed with findings supportive of the diagnosis as noted. 06/15/2025 5:04 PM T LABORATORY Performing Labs The technical component of this testing was completed at [facility]. Stain controls for all stains resulted within this report have been reviewed and show appropriate reactivity. 06/15/2025 5:04 PM [facility] Case Images 06/15/2025 5:04 PM CDT LABORATORY Tissue URINARY BLADDER STRUCTURE / Unknown 06/10/2025 3:32 PM CDT 06/11/2025 6:14 AM CDT us Rafiq He MD LAB - DANA AP Final Res ult [facility] Acute [facility] [address] 1[address] floor, [address] [place] [address], [facility] [phone] documented in this encounter Visit Diagnoses Diagnosis Bladder tumor- Primary Neoplasm of unspecified nature of bladder Gross hematuria documented in this encounter Administered Medications Inactive [...] Pre-procedure 1254 ($Given - Provi ramesh: Pura Richards, CARYN) ceFAZolin Sodium (ANCEF) injection 2 g (COMPLETED) Routine, 2 g, Intravenous, PRE-OP/PRE-PROCEDURE, Starting on Sun06/10/25 at 1203, For 1 dose, Give first dose within 1 hour PRIOR to incision. If patient weight is greater than or equal to 120 kg increase dose to 3 g., Indications: Perioperative Pharmacoprophylaxis, Pre-procedure 1455 ($Given - Provi ramesh: Munira Alegre APRN CRNA) hyoscyamine (LEVSIN/SL) sublingual tablet 125 mcg (COMPLETED) [...] Sun06/10/25 at 1830, For 1 dose, PACU 181 ($Given - Provi ramesh: Garret Corley RN) Continuous Medication Order 06/08/2025 06/09/2025 06/10/2025 lactated ringers infusion (CANCELED) at 100 mL/hr, Intravenous, CONTINUOUS, Continue until IV catheter is weaned, PACU, Starting on Sun06/10/25 at 1600, Until Sun06/10/25 at 1828 1722 ($New Bag - Pro vider: Wilmar Edouard RN) PRN Medication Order 06/08/2025 06/09/2025 06/10/2025 fentaNYL [...] documented as of this encounter Care Teams Inventory Analyst Relationship Specialty Start Date End Date Omar Sousa MD [address] [place] [address] PCP - General Sports Medicine 06/05/25 documented as of this encounter
--- OUTSIDE RECORDS SUMMARY | 2025-07-15 06:36 | XMS_ITS | Encounter Summary ---
Author Organization [facility] Address [address] [place], [place] [address]. 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] Procedures RI CYSTOURETHROSCOPY W BIOPSY RI CYSTOSCOPY W TX MINOR LESION <0.5 CM RI CYSTOURETHROSCOPY,FULGUR .5-2CM LE* RI CYSTOURETHROSCOPY,FULGUR 2-5CM LESN RI CYSTOURETHROSCOPY,FULGUR >5CM LESN RI INSTILL ANTICANCER AGENT IN BLADDER RI CYSTOURETHROSCOPY Cystoscopy, Bladder Biopsy, Fulguration, Possible Bladder Instillation with Gemcitabine Rafiq He MD [facility] [address] [facility] [place] [address] Phone: tel: fax: [facility] [address], [address] [address] Phone: tel: Referral ID Status Reason Start Date Expiration Date Visits Re quested Visits Authorized [id number] 1 1 Encounter Details Date Type Department Care Team (Latest Contact Info) Description 07/15/2025 6:36 AM CDT - 07/15/2025 11:46 AM CDT Hospital Encounter [facility] [address] [place] [id number] Rafiq He MD [facility] [address] [place] [address] Bladder tumor (Primary Dx) Discharge Disposition: Home [...] motionally safe where you currently live? Yes 07/15/2025 Within the past 12 months, h ave you been hit, slapped, kicked or otherwise physically hurt by someone? No 07/15/2025 Within the past 12 months, h ave you been humiliated or emotionally abused in other ways by your partner or ex-partner? 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 Gender Identity Not on file Sexual Orientation Not on file documented as of this encounter Last Filed Vital Signs Vital Sign Reading Time Taken Comments Blood Pressure 152/73 07/15/2025 11:30 AM CDT Pulse 62 07/15/2025 11:00 AM CDT Temperature 36.7 C (98 F) 07/15/2025 11:30 AM CDT Respiratory Rate 14 07/15/2025 11:30 AM CDT Oxygen Saturation 97% 07/15/2025 11:30 AM CDT Inhaled Oxygen Concentration - - Weight 54 kg (119 lb) 07/15/2025 7:04 AM CDT Height 152.4 cm (5') 07/15/2025 7:04 AM CDT Body Mass Index 23.24 07/15/2025 7:04 AM CDT documented in this encounter Discharge Instructions * Discharge Instructions* Sandra Corral RN - 07/15/2025 10:38 AM CDT Chemotherapy Bladder Instillation Discharge Instructions When you need to urinate, sit down on the toilet and fully empty your bladder. Flush the toilet 2 times with the lid closed after each use. Do this every time you use the toilet for 6 hours after treatment. Wash hands well after using the toilet. If urine touches any skin, wash the area well with soap and water. If you're losing control of your urine, wear a pad. Wash your hands after handling a dirty pad. If caregivers are or breast feeding, they should not handle anything holding your urine orbody fluids for 2 days (48 hours) after your treatment. These side effects are normal: Feeling a sudden, strong urge to urinate or needing to urinate very often, burning when you urinate, some blood in your urine. If these side effects last longer that 48hours, contact your provider. Diet: Drink lots of water to help flush the medicine out of your bladder. Activity: No restrictions. Feeling tired and fatigued is normal. Wait 48 hours after treatment before having sex. If you experience any of the following, please call your provider: Can't urinate. Heavy bleeding or blood clots in urine. Fever of 101?? F or greater. Side effects last longer than 48 hours or get worse. Same Day Surgery Discharge Instructions for Sedation [...] were given 975 mg of Tylenol at 0730am. The recommended daily maximum dose is 4000 mg. If you have questions or concerns about your procedure, call Dr. He at [phone] documented in this encounter Medications at Time of Discharge acetaminophen (TYLENOL) [address] 650 mg rectally every 8 hours as needed for fever. artificial tears OINT ophthalmic ointment Place into both eyes as needed for dry eyes. Biotin 5000 MCG CAPS Take by mouth. Cholecalciferol (VITAMIN D3) 50 MCG (2000 UT) CAPS Take by mouth. ciprofloxacin (CIPRO) 250 MG tabletIndications :Bladder tumor Take 1 tablet (250 mg) by mouth 2 times daily for 10 doses. 10 tablet 07/15/2025 docusate sodium (COLACE) 100 MG capsule Take [...] TABS Take 1 tablet by mouth daily. oxyBUTYnin (DITROPAN) 5 MG tabletIndications :Bladder tumor Take 1 tablet (5 mg) by mouth 2 times daily as needed for bladder spasms. 10 tablet 07/15/2025 oxyCODONE (ROXICODONE) 5 MG tabletIndications :Bladder tumor Take 1 tablet (5 mg) by mouth every 6 hours as needed for breakthrough pain. 8 tablet 07/15/2025 pravastatin (PRAVACHOL) 10 MG tablet Take 10 mg by mouth daily. psyllium 400 MG capsule Take 5 capsules by mouth daily. TRAZODONE HCL PO Take 50 mg by mouth At Bedtime. Takes 1/2 of 100 mg tab documented as of this encounter Progress Notes * Chase Gillette RN - 07/15/2025 11:33 AM CDT Meets criteria for discharge. Discharge instructions reviewed with pt and pt's designated responsible libertarian. Pt label on prescription bag from pharmacy matched to pt's wristband. Pharmacy bag opened with 3 prescriptions inside. Medications were reviewed to match pt wristband while pt and significant other agreed with identification. Prescriptions placed back in pharmacy bag resealed with tape and sent with pt per pt request. documented in this encounter Nursing Notes * Marni Hallman RN - 07/15/2025 11:14 AM CDT Attached meek to urine bag, urine and chemo meds draining for 10min. Discontinue meek and patientdressed. Patient assisted to bathroom. * Sandra Corral RN - 07/15/2025 11:05 AM CDT Pt dressed, up in recliner and transported to Phase 2. documented in this encounter Miscellaneous Notes * Op Note - Rafiq He MD - 07/15/2025 9:04 AM CDT UROLOGY OPERATIVE REPORT PREOP DIAGNOSIS (D49.4) Bladder tumor (primary encounter diagnosis) Plan: ciprofloxacin (CIPRO) 250 MG tablet, oxyCODONE (ROXICODONE) 5 MG tablet, oxyBUTYnin (DITROPAN) 5 MG tablet POSTOP DIAGNOSIS Same ANESTHESIA General PROCEDURE Procedure(s): Cystoscopy, Bladder Biopsy, Fulguration, Bladder Instillation with Gemcitabine 2 gr STAFF Farm Machinery Set Up Mechanic: Quinn Taylor RN Relief Farm Machinery Set Up Mechanic: Jamin Schmitz RN Scrub Person: Monse Gallegos; Lauren Bautista SURGEON Surgeon(s): Rafiq He MD FINDINGS Fibrinous exudate at the prior bladder biopsy site ; no obvious gross tumor remained EBL None Specimen: Bladder lesions ( mainly fibrinous tissue) Deep margins TECHNIQUE INDICATIONS FOR THE PROCEDURE: Swapna is an 85-year-old female with a history of high-grade TCC history of pelvic radiation this time she presents for restaging of her superficial high-grade bladder tumor. I consented her for the procedure with the risks of bleeding infection injury need for additional surgery. I also consented her for gemcitabine 2 g bladder instillation. Details of the procedure. Swapna was brought to the operating room placed in supine position. After excellent reduction of general anesthesia via LMA her perineum was prepped and draped in the regularfashion. 22 Bhutanese cystoscope was placed per urethra. Evaluation of the bladder did demonstrate almost a 3 cm bladder of the fibrinous tissue at the prior resected site. I remove that fibrinous tissue and send it for pathology labeled as a bladder biopsy. I also obtained deeper margins from deeper tissue underneath of the scarring and send it for pathology labeled as deep margins. Using Bugbee I achieved excellent hemostasis. Right ureteral orifice was visualized and appears to be intact. Oncethe bladder was drained and no obvious signs of perforation and significant bleeding observed I placed 16 Bhutanese Meek catheter. 2000 mg of gemcitabine was introduced into the bladder for 90 minutesbladder instillation. Patient was transferred to the recovery room with the catheter in place and plugged. The plan as of now to drain her gemcitabine in recovery, DC Meek; she can go home after. PLAN See her back in 2 to 3-week interval to discuss her pathology results. Rafiq He MD documented in this encounter Plan of Treatment Pending Results Name Type Priority Associated Diagnoses Date /Time Surgical Pathology Exam Pathology and Cytology Routine 07/15/2025 9:11 AM CDT Scheduled Orders Name Type Priority Associated Diagnoses Order Schedule Surgical Pathology Exam Pathology and Cytology Routine Release Upon Ordering for 1 Occurrences starting 07/15/2025, 1 completed documented as of this encounter Goals Goal Patient Goal Type Associated Problems Recent Progress Patient-Stated? 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) Special Needs *[id number] 2GR LAB RESULT - HIM SCAN 07/04/2025 12:00 AM CDT EKG CARDIAC - HIM SCAN 12:00 AM CDT EKG CARDIAC - HIM SCAN 12:00 AM CDT documented in this encounter Results * Lab Result - HIM Scan (07/04/2025 12:00 AM CDT) 07/04/2025 us Provider Outside MH NON-BEAKER LAB TESTING Final Result * EKG Cardiac - HIM Scan (06/10/2025 12:00 AM CDT) 06/10/2025 us Provider Outside ECG ORDERABLES Final Result * EKG Cardiac - HIM Scan (08/07/2024 12:00 AM CDT) 08/07/2024 us Provider Outside ECG ORDERABLES Final Result documented in this encounter Visit Diagnoses Diagnosis Bladder tumor- Primary Neoplasm of unspecified nature of bladder documented in this encounter Administered Medications Inactive Administered Medications - up to 3 most recent administrations Medication Order MAR Action Action Date Dose Rate Site acetaminophen (TYLENOL) tablet 975 mg 975 mg, Oral, ONCE, On Sun07/15/25 at 0700, For 1 dose, Maximum acetaminophen dose from all sources = 75 mg/kg/day not to exceed 4 grams/day., Pre-procedure $Given 07/15/2025 7:28 AM CDT 975 mg fentaNYL (PF) (SUBLIMAZE) injection 25 mcg 25 mcg, Intravenous, EVERY 5 MIN PRN, moderate pain, Give fentaNYL (SUBLIMAZE) first if HYDROmorphone (DILAUDID) also ordered., Starting on Sun07/15/25 at 0939, Administer fentaNYL (SUBLIMAZE) for acute pain control. Move to HYDROmorphone (DILAUDID): - IF patient has received up to 200 mcg of fentaNYL (SUBLIMAZE) OR - IF patient has received 2 doses of fentaNYL (SUBLIMAZE) AND continues to have pain score greater than or equal to six (6) or is unable to participate in post op recovery due to pain. Wait 5 minutes AFTER last fentaNYL (SUBLIMAZE) dose before administering HYDROmorphone (DILADUDID). Postop Anesthesia Phase I only. Notify Provider to assess for uncontrolled pain or analgesic side effects. DO NOT revert back to fentanyl (SUBLIMAZE) after administering HYDROmorphone (DILAUDID)., PACU $Given 07/15/2025 10:21 AM CDT 25 mcg $Given 07/15/2025 9:53 AM CDT 25 mcg $Given 07/15/2025 9:47 AM CDT 25 mcg lactated ringers infusion at 100 mL/hr, Intravenous, CONTINUOUS, Continue until IV catheter is weaned, PACU, Starting on Sun07/15/25 at 1000, Until Sun07/15/25 at 1110 Restarted 07/15/2025 9:45 AM CDT 100 m L/hr lactated ringers infusion at 10 mL/hr, Intravenous, CONTINUOUS, IF patient NOT on dialysis., Pre-procedure, Starting on Sun07/15/25 at 1000, Until Sun07/15/25 at 1346 documented in this encounter Active and Recently Administered Medications Times are shown in CDT. Scheduled Medication Order 07/13/2025 07/14/2025 07/15/2025 acetaminophen (TYLENOL) tablet 975 mg (COMPLETED)(Linked Group 1) 975 mg, Oral, ONCE, On Sun07/15/25 at 0700, For 1 dose, Maximum acetaminophen dose from all sources = 75 mg/kg/day not to exceed 4 grams/day., Pre-procedure 0728 ($Given - Provi ramesh: Tracy Fallon, CARYN) ceFAZolin Sodium (ANCEF) injection 2 g (COMPLETED) Routine, 2 g, Intravenous, PRE-OP/PRE-PROCEDURE, Starting on Sun07/15/25 at 0654, For 1 dose, Give first dose within 1 hour PRIOR to incision. If patient weight is greater than or equal to 120 kg increase dose to 3 g., Indications: Perioperative Pharmacoprophylaxis, Pre-procedure 0836 ($Given - Provi ramesh: Conrado Calderon) gemcitabine (GEMZAR) 2,000 mg in sodium chloride 0.9 % 100 mL bladder instillation syringe 2,000 mg, INTRAVESICAL, ONCE, On Sun07/15/25 at 0830, For 1 dose, Nursing to attach LL-1 or LL-2 connector to meek catheter prior to bladder instillation. Instill in bladder as directed. 0830 (Canceled Entry - Provider: Orders Generic Provider - Comment: Automatically canceled at discontinue of medication order) Continuous Medication Order 07/13/2025 07/14/2025 07/15/2025 lactated ringers infusion (CANCELED) at 100 mL/hr, Intravenous, CONTINUOUS, Continue until IV catheter is weaned, PACU, Starting on Sun07/15/25 at 1000, Until Sun07/15/25 at 1110 0945 (Restarted - Pr ovider: Sandra Corral RN) lactated ringers infusion at 10 mL/hr, Intravenous, CONTINUOUS, IF patient NOT on dialysis., Pre-procedure, Starting on Sun07/15/25 at 1000, Until Sun07/15/25 at 1346 1024 (Canceled Entry - Provider: Sandra Corral RN) PRN Medication Order 07/13/2025 07/14/202507/15/2025 fentaNYL (PF) (SUBLIMAZE) injection 25 mcg (CANCELED) 25 mcg, Intravenous, EVERY 5 MIN PRN, moderate pain, Give fentaNYL (SUBLIMAZE) first if HYDROmorphone (DILAUDID) also ordered., Starting on Sun07/15/25 at 0939, Administer fentaNYL (SUBLIMAZE) for acute pain control. Move to HYDROmorphone (DILAUDID): - IF patient has received up to 200 mcg of fentaNYL (SUBLIMAZE) OR - IF patient has received 2 doses of fentaNYL (SUBLIMAZE) AND continues to have pain score greater than or equal to six (6) or is unable to participate in post op recovery due to pain. Wait 5 minutes AFTER last fentaNYL (SUBLIMAZE) dose before administering HYDROmorphone (DILADUDID). Postop Anesthesia Phase I only. Notify Provider to assess for uncontrolled pain or analgesic side effects. DO NOT revert back to fentanyl (SUBLIMAZE) after administering HYDROmorphone (DILAUDID)., PACU 0947 ($Given - Provi ramesh: Sandra Corral RN)0953 ($Given - Provider: Sandra Corral RN)1021 ($Given - Provider: Sandra Corral RN) sterile water (bottle) irrigation (CANCELED) PRN, Intra-procedure, Starting on Sun07/15/25 at 0902, Until Sun07/15/25 at 0935 0902 ($Given - Provi ramesh: Rafiq He MD) Linked Groups Order Group 1: acetaminophen (TYLENOL) tablet 975 mg (COMPLETED)Jump to med 975 mg, Oral, ONCE, On Sun07/15/25 at 0700, For 1 dose, Maximum acetaminophen dose from all sources = 75 mg/kg/day not to exceed 4 grams/day., Pre-procedure Or acetaminophen (TYLENOL) Suppository 650 mg (COMPLETED) 650 mg, Rectal, ONCE, On Sun07/15/25 at 0700, For 1 dose, Maximum acetaminophen dose from all sources = 75 mg/kg/day not to exceed 4 grams/day., Pre-procedure documented in this encounter Additional Health Concerns Active Problems Noted Date Diagnosed Date MyC ECC SURG ENROLL 06/04/2025 documented as of this encounter Care Teams Soils Analyst Relationship Specialty Start Date End Date Omar Sousa MD [address] [place] [address] PCP - General Sports Medicine 06/05/25 documented as of this encounter
--- OUTSIDE RECORDS SUMMARY | 2025-07-15 08:36 | XMS_ITS | Encounter Summary ---
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] Procedures CA CYSTOURETHROSCOPY W BIOPSY CA CYSTOSCOPY W TX MINOR LESION <0.5 CM CA CYSTOURETHROSCOPY,FULGUR .5-2CM LE* CA CYSTOURETHROSCOPY,FULGUR 2-5CM LESN CA CYSTOURETHROSCOPY,FULGUR >5CM LESN CA INSTILL ANTICANCER AGENT IN BLADDER CA CYSTOURETHROSCOPY Cystoscopy, Bladder Biopsy, Fulguration, Possible Bladder Instillation with Gemcitabine Rafiq He MD [facility] [address] [facility] [place] [address] Phone: tel: [facility]: [facility] [address], [address] [place] [address] Phone: tel: Referral ID Status Reason Start Date Expiration Date Visits Re quested Visits Authorized [id number] 1 1 Encounter Details Date Type Department Care Team (Late st Contact Info) Description 07/15/2025 8:36 AM CDT Anesthesia Event [facility] [address], [address] [facility] [place] [address] Ken Thapa MD [facility] [address], [place] [address] Anesthesia Record Procedure Summary Procedure Name Responsible Anesthesiologist Anesthesia Start Time Anesthesia Stop Time Cystoscopy, Bladder Biopsy, (Urethra) Ken Thapa MD 07/15/25 0836 07/15/25 0937 Events Date Time Event Comment 07/15/2025 0801 0836 An Start Anesthesia Star t is defined as when the anesthesia provider assumed care, began anesthesia prep, remained continuously present with the patient, and excludes all time for performing the pre-anesthesia evaluation. The Pre-Anesthesia Evaluation was completed before Anesthesia Start. 0836 An Start Data 0836 AN REASSESS I attest that I have identified and re-evaluated the patient immediately before the induction of anesthesia and I am satisfied that the anesthetic plan is suitable for the patient's condition and procedure. The first vital signs recorded are pre-induction. Dejuan Forrest APRN FENCE BUILDER 0842 An Induction 0843 An LMA 0846 Anesthesia Ready for Procedu re 0903 Timeout 0904 AN INCISION 0927 LMA Removed 0931 an stop data 0937 An Stop Electronically signed by Dejuan Forrest APRN FENCE BUILDER on July 15, 2025 9:36 AM Meds Name Total lidocaine 2% 60 mg propofol 10 mg/mL 160 mg propofol drip mcg/kg/min 267.84 mg dexamethasone (DECADRON) 4 mg/mL 4 mg ondansetron 2 mg/mL 4 mg ceFAZolin Sodium (ANCEF) injection 2 g 2 g LR 650 mL * Agents Name O2 N2O Air Exp Sevoflurane Exp Isoflurane Exp Desflurane O2 Delivery Device Ins Sevoflurane Ins Isoflurane Ins Desflurane O2 Auxiliary * Blood No blood administrations on file. 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 status CV/Hemodynamics: Uneventful Sign Out: Acceptable CV status; No obvious hypovolemia; No obvious fluid overload Other NRE: NONE DID A NON-ROUTINE EVENT OCCUR? No Last vitals: Vitals Value Taken Time BP 154/70 07/15/25 11:00 Temp 36.5 ??C (97.7 ??F) 07/15/25 10:56 Pulse 62 07/15/25 11:00 Resp 16 07/15/25 10:56 SpO2 95 % 07/15/25 11:02 Vitals shown include unfiled device data. Electronically Signed By: Ken Thapa MD July 15, 2025 12:25 PM * Anesthesia Procedure Notes - Dejuan Forrest APRN CRNA - 07/15/2025 8:55 AM CDTAssociated Order(s): Airway Airway Staff - Other Anesthesia Staff: Conrado Calderon Performed By: SRNAIndications and Patient Condition Indications for airway management: carmen-procedural Induction type:intravenous Mask difficulty assessment: 0 - not attempted Final Airway Details Final airway type: supraglottic airway Supraglottic Airway Details Type: LMA Brand: I-Gel LMA size: 4 Post intubation assessment Placement verified by: capnometry Number of attempts at approach: 1 Number of other approaches attempted: 0 Secured with: commercial tube cardenas Ease of procedure: easy Dentition: Intact and Unchanged * Anesthesia Preprocedure Evaluation - Ken Thapa MD - 07/14/2025 10:15 AM CDT Anesthesia Pre-Procedure Evaluation Patient: Swapna Ortiz : 1940 Procedure : Procedure(s): Cystoscopy, Bladder Biopsy, Fulguration, Possible Bladder Instillation with Gemcitabine Past Medical History: Diagnosis Date Acute lower GI bleeding AMD (age related macular degeneration) Aortic valve regurgitation Arthritis Bilateral pseudophakia Bilateral pseudophakia Chronic right shoulder pain Colon polyp DDD (degenerative disc disease), lumbar Dry eye syndrome of both eyes Endometrial cancer (H) Epiphora due to insufficient drainage of both sides Fibromyalgia Fuchs' corneal dystrophy Gastric polyps Greater trochanteric bursitis of left hip Hyperlipidemia Hypertension Insomnia Insufficiency of lacrimal sac 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 Meningioma (H) Osteopenia Pancreatic lesion Persistent headaches Primary osteoarthritis of hips, bilateral Pseudoexfoliation of lens capsule Restless legs syndrome (RLS) Rheumatic fever 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) Vision problems Past Surgical History: Procedure Laterality Date 5TH METATARSAL REPAIR, SUBTALAR ATHROEREISIS Right 2003 MIRIAM CAPELLAN FRACTURE Left 2006 BREAST MASS EXCISION Right 2017 BREAST REDUCTION 2003 BREAST SURGERY BUNIONECTOMY Right 2022 CATARACT REMOVAL Bilateral 2014 COLONOSCOPY 2017 COLONOSCOPY 2018 COLONOSCOPY DIAGNOSTIC 2011 COLONOSCOPY DIAGNOSTIC 2013 COLONOSCOPY DIAGNOSTIC 2021 COLONOSCOPY, SCREENING 2010 COMBINED CYSTOSCOPY, INSERT STENT URETER(S) Right 06/10/2025 Procedure: and right ureteral stent placement; Surgeon: Rafiq He MD; Location: [facility] OR CYSTOSCOPY, RETROGRADES, COMBINED Bilateral 06/10/2025 Procedure: bilateral retrogrades,; Surgeon: Rafiq He MD; Location: [facility] OR CYSTOSCOPY, TRANSURETHRAL RESECTION (TUR) TUMOR BLADDER, COMBINED N/A 06/10/2025 Procedure: Cystoscopy, transurethral resection of bladder tumor; Surgeon: Rafiq He MD;Location: [facility] OR HAMMER TOE REPAIR Right 2022 HAMMER TOE REPAIR Left 2012 HYSTEROSCOPY DILATION AND CURRETTAGE WITH BOYKIN & NEPHEW MORCELLATOR 2014 LIGATE FALLOPIAN TUBE ROBOTIC ASSISTED TOTAL LAPAROSCOPIC HYSTERECTOMY, BILATERAL SALPINGO OOPHORECTOMY, AND LYMPH NODE DISSECTION AND WASHINGS 2015 TONSILLECTOMY TOOTH EXTRACTION Right 2017 TOTAL HIP ARTHROPLASTY Right 2020 TOTAL HIP ARTHROPLASTY Left 07/2024 WISDOM TEETH EXTRACTION YAG CAPSULOTOMY Bilateral 2019 Allergies Allergen Reactions Hydrocodone Other (See Comments) Loopy Oxycodone-Acetaminophen Nausea And loopy Propoxyphene Hcl Mental Status Change Sodium Phosphate Nausea and Vomiting Social History Tobacco Use Smoking status: Never Passive exposure: Never Smokeless tobacco: Never Substance Use Topics Alcohol use: Never Wt Readings from Last 1 Encounters: 06/10/25 55.7 kg (122 lb 14.4 oz) Anesthesia Evaluation Pt has had prior anesthetic. No history of anesthetic complications ROS/MED HX ENT/Pulmonary: (-) sleep apnea Neurologic: Comment: RSL Cardiovascular: (+) Dyslipidemia - - - - - valvular problems/murmurs mild-moderate AI and MR, mod-severe TR. pulmonary hypertension, Previous cardiac testing Echo: Date: 10/2024 Results: Final Impressions: 1. Normal left ventricular [...] Date: Results: Cath: Date: Results: METS/Exercise Tolerance: Hematologic: Musculoskeletal: Comment: fibro GI/Hepatic: Comment: IBS (-) GERD Renal/Genitourinary: Endo: Psychiatric/Substance Use: Infectious Disease: Malignancy: Comment: Bladder tumor removed 05/2025 (+) Malignancy, Other: Physical Exam Airway Mallampati: III TM distance: >3 FB Neck ROM: full Mouth opening: >= 4 cm Cardiovascular - normal exam Dental Comments: partial Pulmonary - normal exam Neurological Other Findings OUTSIDE LABS: CBC: Lab Results [...] and realistic alternatives discussed. Questions answered and patient/cash application representative(s) expressed understanding. - Discussed: - Discussed with: Patient Postoperative Care Pain management: multimodal analgesia. Comments: Ken Thapa MD I have reviewed the pertinent notes and labs in the chart from the past 30 days and (re)examined the patient. Any updates or changes from those notes are reflected in this note. 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 Anesthesia Type: General Note: Oropharynx: oropharynx clear of all foreign objects and spontaneously breathing Level of Consciousness: awake Oxygen Supplementation: room air Independent Airway: airway patency satisfactory and stable Dentition: dentition unchanged Vital Signs Stable: post-procedure vital signs reviewed and stable Report to RN Given: handoff report given Patient transferred to: PACU Handoff Report: Identifed the Patient, Identified the Reponsible Provider, Reviewed the pertinent medical history, Discussed the surgical course, Reviewed Intra-OP anesthesia mangement and issues during anesthesia, Set expectations for post-procedure period and Allowed opportunity for questions andacknowledgement of understanding Vitals: Vitals Value Taken Time BP Temp Pulse 61 07/15/25 09:37 Resp 15 07/15/25 09:37 SpO2 98 % 07/15/25 09:37 Vitals shown include unfiled device data. Electronically Signed By: Dejuan Forrest APRN CRNA July 15, 2025 9:39 AM documented in this encounter Plan of Treatment Not on file documented as of this encounter Goals Goal Patient Goal Type Associated Problems Recent Progress Patient-Stated? Author MYC ECC SURG ENROLL Care Plan MyC ECC SURG ENROLL No Pranav Hauser documented as of this encounter Procedures Procedure Name Priority Date/Time Associated Diagnosis Comments ANE AIRWAY SUPRAGLOTTIC PERFORMABLE Routine 07/15/2025 8:55 AM CDT documented in this encounter Results * ANE AIRWAY SUPRAGLOTTIC PERFORMABLE (07/15/2025 8:55 AM CDT) Narrative Dejuan Forrest APRN FENCE BUILDER - 07/15/2025 8:55 AM CDT Dejuan Forrest APRN FENCE BUILDER 07/15/2025 8:56 AM Airway Staff - Other Anesthesia Staff: Conrado Calderon Performed By: SRNAIndications and Patient Condition Indications for airway management: carmen-procedural Induction type:intravenous Mask difficulty assessment: 0 - not attempted Final Airway Details Final airway type: supraglottic airway Supraglottic Airway Details Type: LMA Brand: I-Gel LMA size: 4 Post intubation assessment Placement verified by: capnometry Number of attempts at approach: 1 Number of other approaches attempted: 0 Secured with: commercial tube cardenas Ease of procedure: easy Dentition: Intact and Unchanged Ken Thapa MD [place] ANESTH[place]IA Final Resu lt documented in this encounter Visit Diagnoses Not [...] dose to 3 g., Indications: Perioperative Pharmacoprophylaxis, Pre-procedureIndications:Per ioperative Pharmacoprophylaxis $Given 07/15/2025 8:36 AM CDT 2 g dexAMETHasone (DECADRON) injection Intravenous, PRN, Administer over 1 Minutes, Starting on Sun07/15/25 at 0846, Anesthesia Intra-op $Given 07/15/2025 8:46 AM CDT 4 mg lactated ringers infusion Intravenous, CONTINUOUS PRN, Anesthesia Intra-op, Starting on Sun07/15/25 at 0836, Until Sun07/15/25 at 0936 $New Bag 07/15/2025 8:36 AM CDT lidocaine 2% injection (MDV) Intravenous, PRN, Starting on Sun07/15/25 at 0842, Anesthesia Intra-op $Given 07/15/2025 8:42 AM CDT 60 mg ondansetron (ZOFRAN) injection Intravenous, PRN, Administer over 2-5 Minutes, Starting on Sun07/15/25 at 0850, Anesthesia Intra-op $Given 07/15/2025 8:50 AM CDT 4 mg propofol (DIPRIVAN) infusion Intravenous, CONTINUOUS PRN, Starting on Sun07/15/25 at 0843, Anesthesia Intra-op Rate/Dose Change 07/15/2025 9:07 AM CDT 140 mcg/kg/min 45.36 mL/hr $New Bag 07/15/2025 8:43 AM CDT 125 mcg/kg/min 40.5 mL/h r propofol (DIPRIVAN) injection 10 mg/mL vial Intravenous, PRN, Starting on Sun07/15/25 at 0842, Anesthesia Intra-op $Given 07/15/2025 9:07 AM CDT 30 mg $Given 07/15/2025 8:42 AM CDT 130 mg documented in this encounter Additional Health Concerns Active Problems Noted Date Diagnosed Date MyC ECC SURG ENROLL 06/04/2025 documented as of this encounter Care Teams Rn Placement Relationship Specialty Start Date End Date Omar Sousa MD [address] [place] [address] PCP - General Sports Medicine 06/05/25 documented as of this encounter
--- OUTSIDE RECORDS SUMMARY | 2025-07-15 09:05 | XMS_ITS | Encounter Summary ---
Author Organization [place] Address [address] [place], [place] [address]. 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] Procedures DE CYSTOURETHROSCOPY W BIOPSY DE CYSTOSCOPY W TX MINOR LESION <0.5 CM DE CYSTOURETHROSCOPY,FULGUR .5-2CM LE* DE CYSTOURETHROSCOPY,FULGUR 2-5CM LESN DE CYSTOURETHROSCOPY,FULGUR >5CM LESN DE INSTILL ANTICANCER AGENT IN BLADDER DE CYSTOURETHROSCOPY Cystoscopy, Bladder Biopsy, Fulguration, Possible Bladder Instillation with Gemcitabine Rafiq He MD [facility] [address] [place] [address] Phone: tel: fax: [facility] [address] [place] [address] Phone: tel: Referral ID Status Reason Start Date Expiration Date Visits Re quested Visits Authorized [id number] 1 1 Encounter Details Date Type Department Care Team (Late st Contact Info) Description 07/15/2025 9:05 AM CDT - 07/15/2025 11:00 AM CDT Surgery [facility] [address] [place] [phone] Rafiq He MD [facility] [address] [facility] [place] [address] Cystoscopy, Bladder Biopsy, Surgery Details Date/Time Status Location OR Service Patient Class Case Class Case Type Trauma Case? 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 He at [phone] documented in this encounter Medications at Time [...] Bladder Instillation with Gemcitabine 2 gr STAFF Car Rental Manager: Quinn Taylor RN Relief Car Rental Manager: Jamin Schmitz RN Scrub Person: Monse Gallegos; [...] prepped and draped in the regularfashion. 22 [place] cystoscope was placed per urethra. Evaluation of [...] was visualized and appears to be intact. Once the bladder was drained and no obvious signs of perforation and significant bleeding observed I placed 16 [place] Meek catheter. 2000 mg of gemcitabine was introduced into the bladder for 90 minutes bladder instillation. 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) Special Needs *[id number] 2GR LAB RESULT - HIM SCAN 07/04/2025 12:00 AM CDT EKG CARDIAC - HIM SCAN 5 12:00 AM CDT EKG CARDIAC - HIM SCAN 4 12:00 AM CDT documented in this encounter Results * Lab Result - HIM Scan (07/04/2025 12:00 AM CDT) 07/04/2025 us Provider Outside NON-BEAKER LAB TESTING Final Result * EKG Cardiac - HIM Scan (06/10/2025 12:00 AM CDT) 06/10/2025 us Provider Outside ECG ORDERABLES Final Result * EKG Cardiac - HIM Scan (08/07/2024 12:00 AM CDT) 08/07/2024 us Provider Outside ECG ORDERABLES Final Result documented in this encounter Visit Diagnoses Diagnosis Bladder tumor- Primary Neoplasm of unspecified nature of bladder 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 Scheduled Medication Order 07/13/2025 07/14/2025 07/15/2025 acetaminophen (TYLENOL) tablet 975 mg (COMPLETED)(Linked Group 1) 975 mg, Oral, ONCE, On Sun07/15/25 at 0700, For 1 dose, Maximum acetaminophen dose from all sources = 75 mg/kg/day not to exceed 4 grams/day., Pre-procedure 0728 ($Given - Provi ramesh: Tracy Fallon RN) ceFAZolin Sodium (ANCEF) injection 2 g [...] Sandra Corral RN) PRN Medication Order 07/13/2025 07/14/2025 07/15/2025 fentaNYL (PF) (SUBLIMAZE) injection 25 mcg (CANCELED) [...] documented as of this encounter Care Teams Welcome Wagon Hostess Relationship Specialty Start Date End Date Omar Sousa MD [address] [place] [address] PCP - General Sports Medicine 06/05/25 documented as of this encounter
--- OUTSIDE RECORDS SUMMARY | 2025-07-16 09:52 | XMS_ITS ---
Author Name Interface, [id number] lity Address [address] [place] [address] [address] [place] [address] [facility] Address [facility] [address] [place] [address] Allergies and Adverse Reactions Medication/Group Name Reaction Severity Date propoxyphene Nausea 01/02/2025 oxycodone HCl/acetaminophen Nausea 01/02/2025 hydrocodone bitartrate/acetaminophen Nausea 01/02/2025 acetaminophen Nausea 01/02/2025 Sodium Phosphate Nausea 01/02/2025 Plan Date Type Value 01/02/2025 APPOINTMENT LINEMAN APPRENTICE FOLLOW UP 30 MIN 01/02/2025 APPOINTMENT SKILLED NURSING FOLLOW UP 30 MIN 01/01/2024 APPOINTMENT OV 30 MIN 01/11/2023 APPOINTMENT OFFICE FU 30 MIN NO TREATMENT Reason for Visit LINEMAN APPRENTICE FOLLOW UP 30 MIN Encounters Date Name 01/11/2023 History of malignant neoplasm of endometrium (situation) Medications Date Name Route Dose Frequency Instructions Start Date End Date Status Losartan Oral 1 tab daily active Biotin Oral oral 1.0 tablet occasionally active Furosemide Oral 25.0 mg ever y OTHER day active Metoprolol Oral (Tartrate) 1 tab daily active Fluorometholone Ophthalmic Drops 0.1 % active Pravastatin Sodium Oral orally 10.0 mg daily active Cholecalciferol Oral orally 2000.0 unit daily active Vit C,E-Dv-Ngyekz-Lute in-Zeaxan Oral 250 mg-90 mg-40 mg-1 mg active Trazodone Oral orally TABLET(S ) daily active Problems Diagnosis Status Date of Diagnosis Resolution Date Systolic heart murmur Active Mixed incontinence Active History of malignant neoplas m of endometrium (situation) Active Urinary urgency Active Urge incontinence Active Benign essential hypertension (disorder) Active Lumbar radiculopathy Active Right hip pain Active Lymphadenopathy (disorder) Active Chronic back pain Active Vital Signs Date Type Value 01/11/2023 Body Temperature 96.00 01/11/2023 Heart Beat 63.00 01/11/2023 Respiratory Rate 18.00 01/11/2023 Oxygen Saturation 99.00 01/11/2023 BSA 1.56 01/11/2023 Pain Scale 3.00 01/11/2023 Weight 127.00 01/11/2023 Height 61.00 01/11/2023 BMI 24.00 01/11/2023 Intravascular Systolic 122 01/11/2023 Intravascular Diastolic 80 01/01/2024 BSA 1.56 01/01/2024 BMI 24.00 01/01/2024 Height 61.00 01/01/2024 Weight 127.00 01/01/2024 Pain Scale 0.00 01/01/2024 Intravascular Systolic 120 01/01/2024 Intravascular Diastolic 80 01/01/2024 Oxygen Saturation 99.00 01/01/2024 Respiratory Rate 18.00 01/01/2024 Body Temperature 97.40 01/01/2024 Heart Beat 66.00 01/02/2025 BMI 23.60 01/02/2025 Height 61.00 01/02/2025 Weight 124.90 01/02/2025 Pain Scale 0.00 01/02/2025 BSA 1.55 01/02/2025 Oxygen Saturation 98.00 01/02/2025 Respiratory Rate 16.00 01/02/2025 Heart Beat 70.00 01/02/2025 Body Temperature 97.80 01/02/2025 Intravascular Systolic 135 01/02/2025 Intravascular Diastolic 65 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 Swapna Ortiz is a 82 year-old woman with a history of stage IIIA, Grade 1, Endometrioid Endometrial Cancer. She is here for annual exam. History of Present Illness (Consumer Affairs Specialist Oncology): In brief, Ms. Ortiz presented with PMB and pelvic cramping. She underwent U/S which found the uterus to measure 6.6x3.1x4.8cm with two hypoechoic lesions in the endometrial cavity measuring [id number] and [id number]. These were consistent with polyps. The ovaries were not seen. She underwent a Hysteroscopic D&C on 10/05/2015 and this found the Grade 1 tumor with intact DNA mismatch repair gene s.On 11/04/2015 she underwent a Robotic TLH/BSO/PPALND/washings. Final pathology confirmed a 2.5cm tumor which was invading 1.1/1.3cm and was involving both proximal fallopian tubes. The tumor was not found in the ovaries, cervix or the lymph nodes. It was confirmed ER/ME +.?? Final stage IIIA. After surgery further adjuvant treatment was recommended with chemotherapy and radiation.?Swapna elected to proceed with whole pelvic radiation and not to do chemotherapy.?? Her whole pelvic radiation therapy was completed at an outside facility. She did receive high-dose brachytherapy x3??with us to complete her radiation management in mid January 2016. In 01/2017 she had an anterior vaginal wallbiopsy that returned with granulation tissue.??Repeat bx of a new area in 08/17/17 consistent with granulation tissue. In Nov 2017 she also had some low pelvic cramping and hematochezia. On 12/28/[address] A/P which showed moderate diffuse bowel wall thickening involving the rectosigmoid colon, infectious versus inflammatory.?? There was no evidence of recurrence.?? She then underwent colonoscopy which showed 2, 3mm polyps in the ascending colon, nonbleeding internal hemorrhoids: Multiple diverticula withperidiverticular erythema which was biopsied.?? Pathology showed a tubular and sessile serrated adenoma.?? The mucosal biopsies were negative for microscopic, active, and chronic colitis.?? Genetic Testing (Consumer Affairs Specialist Oncology): DNA mismatch repair enzymes were intact and family history does not support the need for genetic counseling. Interval History (Consumer Affairs Specialist Oncology) Patient presents for a pelvic exam today.??She will continue to follow in our office??on an annual basis??for pelvic exams.?? She denies??gynecologic issues. ??No abdominal??or pelvic pain,??continues to struggle with chronic urinary??urgency and incontinence. ??She was previously evaluated by urology with recommendations??for??trial of vaginal Estrace cream as well as overactive bladder medications,??however due to cost??and no??guarantee of benefit??she decided not to pursue treatment.?? Denies any worsening of symptoms and states that they are tolerable.?? No vaginal bleeding. ?Denies any??vulvar irritation, pruritus or??concerning lesions. Reports in October she had an episode of loss of bowel function??and??bleeding??with multiple clots??per rectum. Hx of diverticulitis.??She was evaluated with CT a/p showing no evidence of recurrent pelvic disease. She ultimately underwent colonoscopy which identified 3 colonic polyps, 1 of which was precancerous. She was recommended to repeat colonoscopy in 3 years. ??Denies any issues since this occurrence.?? She is also anticipating bunion surgery on Sunday. Review of Systems: A complete 14-point review of systems is negative except as noted??in the above history of present illness. Past Medical History: Endometrial cancer. Hx of colon polyps. Fibromyalgia. Hyperlipidemia. Arthritis. Cataracts. Insomnia. Osteopenia. HTN. Hx of Rheumatic fever (with no known cardiac sequela). Insomnia. Osteoarthritis. Surgical History: Excision of breast cyst. T&A. Breast reduction. [place] teeth extraction. Tubal ligation. Cataract surgery. Hammer toe repair. Robotic TLH/BSO/PPALND/washings. 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: Allergies: * Sodium Phosphate * acetaminophen * hydrocodone bitartrate/acetaminophen * oxycodone HCl/acetaminophen * propoxyphene Medications: * Biotin Oral 1 tablet oral occasionally * Ocuvite with Lutein (Vit A, C & X-Kcnzbk-Oqyhzlpy Oral 1,000 unit-200 mg-60 unit-2mg) 1 tablet oral daily * Vitamin D3 (Cholecalciferol Oral) 2000 unit orally daily * Losartan Oral 50 mg tablet 1 tab daily * Metoprolol Oral (Tartrate) 50 mg tablet 1 tab daily * Probiotics Oral Capsule 1 Capsule po daily * Refresh Optive Advanced (Ypneclwcrrsiona-Fohyamm-Hyxz87 Ophthalmic Drops 0.5 %-1 %-0.5 %) 2 drops into the eye(s) 8 to 12 times per day prn dry eye(s) * Hydrochlorothiazide Oral 12.5 mg tablet 1 tab daily * Trazodone Oral 50 mg tablet 0.5-1 TABLET(S) orally daily * Pravastatin Sodium Oral 10 mg orally daily Family History: Grandparents and uncles of cancer of unspecified type. Grandmother with breast cancer.?? Social History: Smoking Status: Smoking Tobacco : Never smoker; Smokeless Tobacco : Never used smokeless tobacco; Vaping : Never vaped Health Maintenance: * Colonoscopy on 12/2017 * Mammogram - Screening (bilateral) on 10/2018 * Pap Smear on 2010, no hx of abn paps Vital Signs: Blood pressure: 122/80, R arm, Regular, Pulse: 63, Temperature: 96 F, Respirations: 18, O2 sat: 99%, Room Air, Pain Scale: 3, Height: 61 in, Weight: 127 lb, BSA: 1.56, BMI: 24 kg/m2 Physical Exam (Consumer Affairs Specialist Oncology): GENERAL: appears in good health.?? No acute distress. PSYCH: alert and oriented x 3. Appropriate mood and affect. : External genitalia notable for labial resorption, no concerning lesions. Urethral caruncle.?? Speculum exam reveals atrophic vaginal mucosa,??vaginal cuff w with no suspicious lesions. Vaginal canal is foreshortened/narrowed due to radiation changes noted throughout with atrophic changes.?? Bimanual exam confirms??no nodularity/fullness/masses.?? EXT:??no edema Laboratory Data: CBC LabResults 11/21/2022 07/14/2021 12/12/2019 02/10/2019 8 05/14/2018 CBC CMP LabResults 11/21/2022 07/14/2021 12/12/2019 02/10/2019 8 05/14/2018 Chemistries ? Imaging: none in interval?? Problems: * Benign essential hypertension (disorder) * Chronic back pain * History of malignant neoplasm of endometrium (situation) ( First record:08/17/2017 Last record:08/17/2017; ) * Lumbar radiculopathy * Lymphadenopathy (disorder) * Mixed incontinence * Right hip pain * Systolic heart murmur * Urge incontinence * Urinary urgency Assessment & Plan (Consumer Affairs Specialist Oncology): ??Ms. Swapna Ortiz is a 82 year-old woman with a history of stage IIIA, Grade 1, Endometrioid Endometrial Cancer. She is here for a??pelvic exam. * Endometrial cancer: DAVID. Patient is now five years out from her completion of treatment. ??She willcontinue to see us on an annual basis as she feels more comfortable completing her??pelvic exams with our team.?? She was advised to contact us??sooner if new concerns or symptoms??arise. * Genetics: DNA mismatch repair enzymes were intact and family history does not support the need for genetic counseling.?? * Urinary??urgency and incontinence: Status post??consult with urology.?? Patient??declined??trial of??OAB medication and??vaginal??estrogen cream.?? She continues??with??avoidance of bladder irritants. * Health maintenance: Per PCP. Recommended colonoscopy in 3 years. Spent??15 minutes [id number] with the established patient. ??Spent 6 minutes reviewing the patient??s chart prior to the appointment, ordering labs, imaging, medications, and completing documentation. Total time spent 21 minutes. Pain Care Management: Pain Scale: 3 Patient Care needs: Depressions Status: Was screened; Outcome positive: No; Screening Date: 01/11/2023; Screening Tool: MD-PHQ2; Total depression score: 0 Psycho-Social PHQ-9 Follow-up Plan (if applicable): Smoking Status: Smoking Tobacco : Never smoker; Smokeless Tobacco : Never used smokeless tobacco; Vaping : Never vaped LOTTIE Sinha Copy to:? Electronically signed by Nelli Renee PA-C 01/11/2023 16:08 DOMESTIC VIOLENCE ADVOCATE
--- OUTSIDE RECORDS SUMMARY | 2025-07-16 09:52 | XMS_ITS ---
Author Name Interface, [id number] lity Address [address] [place] [address] [address] [place] [address] [facility] Address [address] [place] [address] [address] [place] [address] Allergies and Adverse Reactions Medication/Group Name Reaction Severity Date propoxyphene Nausea 01/02/2025 oxycodone HCl/acetaminophen Nausea 01/02/2025 hydrocodone bitartrate/acetaminophen Nausea 01/02/2025 acetaminophen Nausea 01/02/2025 Sodium Phosphate Nausea 01/02/2025 Plan Date Type Value 01/02/2025 APPOINTMENT STAIN MAKER FOLLOW UP 30 MIN 01/02/2025 APPOINTMENT CORRECTION FOLLOW UP 30 MIN 01/01/2024 APPOINTMENT OV 30 MIN 01/11/2023 APPOINTMENT OFFICE FU 30 MIN NO TREATMENT 01/09/2022 APPOINTMENT OFFICE FU 30 MIN NO TREATMENT 01/03/2022 APPOINTMENT OV 30 MIN 01/03/2022 APPOINTMENT OV 30 MIN 12/27/2021 APPOINTMENT OV 30 MIN 01/11/2021 APPOINTMENT RC - 65 RC - 65 RC 05/20/[address] - 65 CT ABDOM EN/PELVIS W/CONTRAS - [place] 11:45 - [place] 05/20/2020 APPOINTMENT MRI - 65 MRI LUM BAR SPINE W W/O CONT - [place] 11:45 - [place] 05/20/2020 APPOINTMENT MRI - 65 MRI THO RACIC SPINE W W/O CO - [place] 11:45 - [place] 05/14/2020 APPOINTMENT RC - 65 RC - 6 M ONT 12/22/2019 APPOINTMENT MAMMO - 65 MAMMO - 65 MAMMO 11/12/2019 APPOINTMENT RC - 65 RC - 65 RC 11/12/2019 LABORDER Mammogram, riannae joe, bilateral breast 05/14/[address] abdomen/pelvi s w/ contrast 05/14/2020 [facility] MRI thoracic spi ne w/ & w/o contrast 05/14/2020 [facility] X-ray hip, right 05/14/2020 [facility] MRI lumbar spine w/ & w/o contrast 05/14/2020 [facility] Creatinine panel , serum Reason for Visit CORRECTION FOLLOW UP 30 MIN Encounters Date Name 11/12/2019 Benign essential hyp ertension (disorder) 11/12/2019 Chronic back pain 11/12/2019 History of malignant neoplasm of endometrium (situation) 11/12/2019 Lumbar radiculopathy 11/12/2019 Lymphadenopathy (dis order) 11/12/2019 Mixed incontinence 11/12/2019 Right hip pain 11/12/2019 Systolic heart murmu r 11/12/2019 Urge incontinence 11/12/2019 Urinary urgency Immunizations Date Name Route Dose Instructions Refusal Reason Stat us Pneumococcal vaccine (Unspecified formulation) Co mpleted 01/11/2021 Covid-19 vaccine ([place]) Completed Flu vaccine - Adult Comp leted Flu vaccine - Adult Comp leted Flu vaccine - Adult Comp leted Diagnostic Results Date Type Test Units Lower Limit Upper Limit Result Flag Comments Status Ordered By Specimen Source Lab Address 12/12 [facility] other lab See attache thakkar 07/14 [facility] other lab See attache thakkar 11/21 [facility] other lab 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 Medications Date Name Route Dose Frequency Instructions Start Date End Date Status Losartan Oral 1 tab daily active Biotin Oral oral 1.0 tablet occasionally active Furosemide Oral 25.0 mg ever y OTHER day active Metoprolol Oral (Tartrate) 1 tab daily active Fluorometholone Ophthalmic Drops 0.1 % active Pravastatin Sodium Oral orally 10.0 mg daily active Cholecalciferol Oral orally 2000.0 unit daily active Vit C,G-Tk-Dloabl-Lute in-Zeaxan Oral 250 mg-90 mg-40 mg-1 mg [...] pain Active Vital Signs Date Type Value 11/12/2019 BMI 24.02 11/12/2019 Height 61.00 11/12/2019 BSA 1.56 11/12/2019 Body Temperature 97.30 11/12/2019 Heart Beat 70.00 11/12/2019 Respiratory Rate 14.00 11/12/2019 Oxygen Saturation 98.00 11/12/2019 Intravascular Systolic 120 11/12/2019 Intravascular Diastolic 84 11/12/2019 Pain Scale 0.00 11/12/2019 Weight 127.10 05/14/2020 Body Temperature 96.87 05/14/2020 BMI 23.86 05/14/2020 Height 61.00 05/14/2020 Weight 126.30 05/14/2020 BSA 1.55 05/14/2020 Intravascular Systolic 156 05/14/2020 Intravascular Diastolic 78 05/14/2020 Oxygen Saturation 98.00 05/14/2020 Respiratory Rate 16.00 05/14/2020 Heart Beat 72.00 05/14/2020 Pain Scale 1.00 01/11/2021 BSA 1.57 01/11/2021 BMI 24.60 01/11/2021 Height 61.00 01/11/2021 Weight 130.20 01/11/2021 Pain Scale 0.00 01/11/2021 Intravascular Systolic 138 01/11/2021 Intravascular Diastolic 80 01/11/2021 Oxygen Saturation 97.00 01/11/2021 Respiratory Rate 18.00 01/11/2021 Body Temperature 96.90 01/11/2021 Heart Beat 83.00 01/09/2022 Body Temperature 98.40 01/09/2022 Heart Beat 87.00 01/09/2022 Respiratory Rate 16.00 01/09/2022 Oxygen Saturation 97.00 01/09/2022 BSA 1.54 01/09/2022 Pain Scale 6.00 01/09/2022 Weight 123.40 01/09/2022 Height 61.00 01/09/2022 BMI 23.32 01/09/2022 Intravascular Systolic 128 01/09/2022 Intravascular Diastolic 80 01/11/2023 Body Temperature 96.00 01/11/2023 Heart Beat 63.00 01/11/2023 Respiratory Rate 18.00 01/11/2023 Oxygen Saturation 99.00 01/11/2023 Intravascular Systolic 122 01/11/2023 Intravascular Diastolic 80 01/11/2023 Pain Scale 3.00 01/11/2023 Weight 127.00 01/11/2023 Height 61.00 01/11/2023 BMI 24.00 01/11/2023 BSA 1.56 01/01/2024 Body Temperature 97.40 01/01/2024 Heart Beat 66.00 01/01/2024 BSA 1.56 01/01/2024 BMI 24.00 01/01/2024 Height 61.00 01/01/2024 Weight 127.00 01/01/2024 Pain Scale 0.00 01/01/2024 Intravascular Systolic 120 01/01/2024 Intravascular Diastolic 80 01/01/2024 Oxygen Saturation 99.00 01/01/2024 Respiratory Rate 18.00 01/02/2025 Body Temperature 97.80 01/02/2025 BMI 23.60 01/02/2025 Height 61.00 01/02/2025 Weight 124.90 01/02/2025 BSA 1.55 01/02/2025 Intravascular Systolic 135 01/02/2025 Intravascular Diastolic 65 01/02/2025 Oxygen Saturation 98.00 01/02/2025 Respiratory Rate 16.00 01/02/2025 Heart Beat 70.00 01/02/2025 Pain Scale 0.00
--- OUTSIDE RECORDS SUMMARY | 2025-07-16 09:52 | XMS_ITS ---
Author Name Interface, [id number] lity Address [address] [place] [address] [address] [place] [address] [facility] Address [address] [place] [address] [address] [place] [address] Allergies and Adverse Reactions Medication/Group Name Reaction Severity Date propoxyphene Nausea 01/02/2025 oxycodone HCl/acetaminophen Nausea 01/02/2025 hydrocodone bitartrate/acetaminophen Nausea 01/02/2025 acetaminophen Nausea 01/02/2025 Sodium Phosphate Nausea 01/02/2025 Plan Date Type Value 01/02/2025 APPOINTMENT CLEANING MANAGER FOLLOW UP 30 MIN 01/02/2025 APPOINTMENT SHELTER FOLLOW UP 30 MIN 01/01/2024 APPOINTMENT OV 30 MIN 01/11/2023 APPOINTMENT OFFICE FU 30 MIN NO TREATMENT 01/09/2022 APPOINTMENT OFFICE FU 30 MIN NO TREATMENT Reason for Visit CLEANING MANAGER FOLLOW UP 30 MIN Encounters Date Name 01/09/2022 History of malignant neoplasm of endometrium (situation) 01/09/2022 Mixed incontinence 01/09/2022 Urge incontinence 01/09/2022 Urinary urgency Immunizations Date Name Route Dose Instructions Refusal Reason Stat us Flu vaccine - Adult Comp leted Flu vaccine - Adult Comp leted Diagnostic Results Date Type Test Units Lower Limit Upper Limit Result Flag Comments Status Ordered By Specimen Source Lab Address 11/21 [facility] other lab See d Medications Date Name Route Dose Frequency Instructions Start Date End Date Status Biotin Oral oral 1.0 tablet occasionally active Losartan Oral 1 tab daily active Furosemide Oral 25.0 mg ever y OTHER day active Metoprolol Oral (Tartrate) 1 tab daily active Fluorometholone Ophthalmic Drops 0.1 % active Pravastatin Sodium Oral orally 10.0 mg daily active Cholecalciferol Oral orally 2000.0 unit daily active Vit C,M-Jn-Dvccgn-Lute in-Zeaxan Oral 250 mg-90 mg-40 mg-1 mg [...] pain Active Vital Signs Date Type Value 01/09/2022 Body Temperature 98.40 01/09/2022 Heart Beat [...] 01/11/2023 BMI 24.00 01/11/2023 BSA 1.56 01/01/2024 BSA 1.56 01/01/2024 BMI 24.00 01/01/2024 [...]
--- OUTSIDE RECORDS SUMMARY | 2025-07-16 09:52 | XMS_ITS ---
Author Name Interface, [id number] lity Address [address] [place] [address] [facility] Address [address] [place] [address] Allergies and Adverse Reactions Plan Reason for Visit Encounters Immunizations Diagnostic Results Medications Problems Vital Signs
--- OUTSIDE RECORDS SUMMARY | 2025-07-16 09:52 | XMS_ITS | CCD ---
Author Name Interface, [id number] lity Address [address] [place] [address] [address], [place] [address] Organization [facility] Address [facility] [address], [place] [address] Care Team Providers Care Air Support Control Officer Name Role Phone Smita Liz MD Unavailable Unavailable Allergies and Adverse Reactions Medication/Group Name Reaction Severity Date propoxyphene Nausea 01/02/2025 oxycodone HCl/acetaminophen Nausea 01/02/2025 hydrocodone bitartrate/acetaminophen Nausea 01/02/2025 acetaminophen Nausea 01/02/2025 Sodium Phosphate Nausea 01/02/2025 Care Plan Date Type Value 01/02/2025 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 FOLLOW UP 30 MIN 01/02/2025 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 FOLLOW UP 30 MIN Reason for Visit FLYING SHEAR OPERATOR FOLLOW UP 30 MIN Encounters Date Name 01/02/2025 History of malignant neoplasm of endometrium (situation) Functional Status Date Name Score 01/05/2016 Karnofsky performance status 90 01/31/2017 Karnofsky performance status 80 03/15/2016 Karnofsky performance status 90 05/10/2017 Karnofsky performance status 90 10/19/2015 Karnofsky performance status 100 11/13/2018 Karnofsky performance status 90 11/17/2015 Karnofsky performance status 100 Medications Date Name Route Dose Frequency Instructions Start Date End Date Status Cholecalciferol Oral orally 2000.0 unit daily active Vit C,I-Tk-Bakkqc-Lutei n-Zeaxan Oral 250 mg-90 mg-40 mg-1 mg active Vit A, C & V-Clrhbx-Mgsplhzd Oral 300 mcg-200 mg-27 mg-2 mg oral 1.0 tablet daily inactive Pravastatin Sodium Oral orally 10.0 mg daily active Trazodone Oral orally TABLET(S ) daily active Probiotics Oral po 1.0 Capsule daily inactive Acetaminophen Oral po 1.0 tablet daily inactive Biotin Oral oral 1.0 tablet occasionally active Fluorometholone Ophthalmic Drops 0.1 % active Losartan Oral 1 tab daily active Carboxymethylce-Gly cern-Poly80 Ophthalmic Drops 0.5 %-1 %-0.5 % into the eye(s) 2.0 drops 8 to 12 times per day prn dry eye(s) stopped Hydrochlorothiazide Oral 1 tab daily inactive Furosemide Oral 25.0 mg ever y OTHER day active Metoprolol Oral (Tartrate) 1 tab daily active 05/21 Multivitamins Oral Tablet PO 1.0 TABLET(S ) daily 05/21 inactive 05/21 Aspirin Oral PO 1.0 TABLET(S ) daily 05/21 inactive 05/21 Simvastatin Oral PO 1.0 TABLET(S ) daily 05/21 stopped Problems Diagnosis Status Date of Diagnosis Resolution Date Systolic heart murmur Active Mixed incontinence Active History of malignant neoplas m of endometrium (situation) Active Bleeding from vagina (finding) Inactive Lymphedema of lower extremity (disorder) Inactive Hip pain (finding) Inactive Hematochezia (finding) Inactive Breast lump (finding) Inactive Primary endometrioid 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 (disorder) Inactive 09/2015 Body mass index (BMI) 25.0-25.9, adult Inactive Body mass index (BMI) 24.0-24.9, adult Inactive Body mass index (BMI) 23.0-23.9, adult Inactive Vaginal lesion (finding) Inactive Emotional stress (finding) Inactive Increased frequency of urination (finding) Inactive Pain in pelvis (finding) Inactive Dysuria (finding) Inactive Urinary urgency Active Urge incontinence Active Benign essential hypertension (disorder) Active Lumbar radiculopathy Active Right hip pain Active Lymphadenopathy (disorder) Active Chronic back pain Active Procedures Date Category Name Instructions Status 01/02/2025 Physician Order RTC MD/PROJECT BUILDER Due Dec 2024 Ordered 01/02/2026 Physician Order RTC PROJECT BUILDER/PA Ordered Social History Date Name Value 01/11/2023 Sex Female Vital Signs Date Type Value 01/02/2025 Body Temperature 97.80 01/02/2025 Heart Beat 70.00 01/02/2025 Respiratory Rate 16.00 01/02/2025 Oxygen Saturation 98.00 01/02/2025 BSA 1.55 01/02/2025 Pain Scale 0.00 01/02/2025 Weight 124.90 01/02/2025 Height 61.00 01/02/2025 BMI 23.60 01/02/2025 Intravascular Systolic 135 01/02/2025 Intravascular Diastolic 65 Notes 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 Swapna Ortiz is a 84 year-old woman with a history of stage IIIA, Grade 1, Endometrioid Endometrial Cancer. She is here for annual exam. History of Present Illness ([facility]): In brief, Ms. Ortiz presented with PMB and pelvic cramping. She underwent U/S which found the uterus to measure 6.6x3.1x4.8cm with two hypoechoic lesions in the endometrial cavity measuring [id number] and [id number]. These were consistent with polyps. The ovaries were not seen. She underwent a Hysteroscopic D&C on 10/05/2015 and this found the Grade 1 tumor with intact DNA mismatch repair genes. On 11/04/2015 she underwent a Robotic TLH/BSO/PPALND/washings. Final pathology confirmed a 2.5cm tumor which was invading 1.1/1.3cm and was involving both proximal fallopian tubes. The tumor was not found in the ovaries, cervix or the lymph nodes. It was confirmed ER/WA +.? Final stage IIIA. After surgery further adjuvant treatment was recommended with chemotherapy and radiation.?Swapna elected to proceed with whole pelvic radiation and not to do chemotherapy.? Her whole pelvic radiation therapy was completed at an outside facility. She did receive high-dose brachytherapy x3?with us to complete her radiation management in mid January 2016. In 01/2017 she had an anterior vaginal wall biopsy that returned with granulation tissue.? Repeat bx of a new area in 08/17/17 consistent with granulation tissue. In Nov 2017 she also had some low pelvic cramping and hematochezia. On 12/28/[address] A/P which showed moderate diffuse bowel wall thickening involving the rectosigmoid colon, infectious versus inflammatory.? There was no evidence of recurrence.? She then underwent colonoscopy which showed 2, 3mm polyps in the ascending colon, nonbleeding internal hemorrhoids: Multiple diverticula with peridiverticular erythema which was biopsied.? Pathology showed a tubular and sessile serrated adenoma.? The mucosal biopsies were negative for microsco pic, active, and chronic colitis.? 11/21/22: CT A/P (to evaluate diverticulitis)? DAVID Genetic Testing ([facility]): DNA mismatch repair enzymes were intact and family history does not support the need for genetic counseling. Interval History ([facility]) She has had quite a lot going on in the past year. ?She had a total hip replacement?in July,?as well as a dental implant recently.? She has been following with cardiology closely because she has a leaky tricuspid valve, so they have been adjusting her medications and?added Lasix.? She is also been following closely with the eye doctor, she does not have macular degenerationper se,?but definitely has some blurry vision in?needs to take?I?drops and eye vitamins. With regard to cancer, she has not had any new abdominal pain, gassiness or bloating.? She has constipation on occasion, but this is not new. ?No vaginal bleeding. ?Appetite is good. She is looking forward to having family over to her house on Sunday for?a combined birthday republican event. Review of Systems: A complete 14-point review of systems is negative except as noted?in the above history of present illness. Past Medical History: Endometrial cancer. Hx of colon polyps. Fibromyalgia. Hyperlipidemia. Arthritis. Cataracts. Insomnia. Osteopenia. HTN. Hx of Rheumatic fever (with no known cardiac sequela). Insomnia. Osteoarthritis. Surgical History: Excision of breast cyst. T&A. Breast reduction. [place] teeth extraction. Tubal ligation. Cataract surgery. Hammer toe repair. Robotic TLH/BSO/PPALND/washings. Right breast excisional procedure.? 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: Allergies: * Sodium Phosphate * acetaminophen * hydrocodone bitartrate/acetaminophen * oxycodone HCl/acetaminophen * propoxyphene Medications: * Lasix (Furosemide Oral) mg 25 mg every OTHER day * Losartan Oral 25 mg tablet 1 tab daily * Metoprolol Oral (Tartrate) 50 mg tablet 1 tab daily * Biotin Oral 1 tablet oral occasionally * Fluorometholone Ophthalmic Drops 0.1 % * Pravastatin Sodium Oral 10 mg orally daily * PreserVision AREDS 2 (Vit C,S-Ce-Wsgxkt-Lutein-Zeaxan Oral 250 mg-90 mg-40 mg- 1 mg) * Vitamin D3 (Cholecalciferol Oral) 2000 unit orally daily * Trazodone Oral 50 mg tablet 0.5-1 TABLET(S) orally daily Family History: Grandparents and uncles of cancer of unspecified type. Grandmother with breast cancer.? Social History: Smoking Status: Smoking Tobacco : Never smoker; Smokeless Tobacco : Never used smokeless tobacco; Vaping : Never vaped Health Maintenance: * Colonoscopy on 12/2017 * Mammogram - Screening (bilateral) on 10/2018 * Pap Smear on 2010, no hx of abn paps Vital Signs: Blood pressure: 135/65, L arm, Pulse: 70, Temperature: 97.8 F, Respirations: 16, O2 sat: 98%, At Rest, Room Air, Pain Scale: 0, Height: 61 in, Weight: 124.9 lb, BSA: 1.55, BMI: 23.6 kg/m2 Physical Exam ([facility]): GENERAL: appears in good health.? No acute distress. PSYCH: alert and oriented x 3. Appropriate mood and affect. LYMPH:? No palpable cervical, supraclavicular nodes, inguinal nodes ABD:?Soft, nontender, no palpable masses : External genitalia notable for labial resorption, no concerning lesions. Urethral prolapse, unchanged from previous?speculum exam non-diagnostic, as vagina is almost entirely coapted, with only about 1 depth. Bimanual exam confirms no nodularity/fullness/masses. Also unchanged from previous. EXT:?no edema Laboratory Data: CBC LabResults 11/21/2022 07/14/2021 12/12/2019 02/10/2019 8 05/14/2018 CBC CMP LabResults 11/21/2022 07/14/2021 12/12/2019 02/10/2019 8 05/14/2018 Chemistries ? Imaging: none in interval? Problems: * Benign essential hypertension (disorder) * Chronic back pain * History of malignant neoplasm of endometrium (situation) ( First record:08/17/2017 Last record:08/17/2017; ) * Lumbar radiculopathy * Lymphadenopathy (disorder) * Mixed incontinence * Right hip pain * Systolic heart murmur * Urge incontinence * Urinary urgency Assessment & Plan ([facility]): ?Ms. Swapna Ortiz is a 84 year-old woman with a history of stage IIIA, Grade 1, Endometrioid Endometrial Cancer. She is here for a?pelvic exam. * Endometrial cancer: DAVID. Patient is now 9 1/2 years out from her completion of treatment. ?She will continue to see us on an annual basis as she feels more comfortable completing her?pelvic exams with our team.? She was advised to contact us?sooner if new concerns or symptoms?arise.? Signs and symptoms of disease recurrence were discussed in detail with patient again today, and patient was given a printed list of?symptoms to look for.? Patient encouraged to call office with any questions or concerns, but otherwise we will see her again in one year.? * Genetics: DNA mismatch repair enzymes were intact and family history does not support the need for genetic counseling.? * Urinary?urgency and incontinence: Status post?consult with urology.? OAB medication no help.?Vaginal?estrogen cream too $$.? She continues?with?avoidance of bladder irritants.? This is unchanged for her. She states it is an inconvenience but not worrisome ??and she does not want to pursue any further workup at this time. * Health maintenance: Per PCP. Recommended colonoscopy in 2?years. 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
--- OUTSIDE RECORDS SUMMARY | 2025-07-16 09:52 | XMS_ITS ---
Author Name Interface, [id number] lity Address [address] [place] [id number] [facility] Address [address] [place] [id number] Allergies and Adverse Reactions Plan Reason for Visit Encounters Immunizations Diagnostic Results Medications Problems Vital Signs
--- OUTSIDE RECORDS SUMMARY | 2025-07-16 09:53 | XMS_ITS | Clinical Summary ---
Author Organization [facility] Address [address] [place] [address] Care Team Providers Care Contracts Analyst Name Role Phone Smita Liz MD Unavailable [phone] Vanessa Sweeney MD Unavailable oNra Waldron RN, BSN Unavailable [phone] Igor Ruano MD Unavailable Omar Sousa MD Primary Care Provider [phone] Jm Macedo MD Unavailable [phone] Gisselle Bernard PharmD Unavailable [phone] Allergies Active Allergy Reactions Criticality Noted Date Comments Oxycodone-Acetaminophen *Unknown Unknown 10/22/2015 Sodium Phosphates Nausea And Vomiting Unknown 6 Propoxyphene Mental Status Change Unknown 04/27/2006 Medications cholecalciferol (VITAMIN D3) 2,000 unit capsule Take 1 Capsule (2,000 units) by mouth once daily. 0 02/09/20 21 Active losartan (COZAAR) 25 mg tabletIndications: Nonrheumatic aortic valve insufficiency Take 1 Tablet (25 mg) by mouth once daily. 90 Tablet 3 11/14/20 24 Active furosemide 20 mg tabletIndications: Nonrheumatic aortic valve insufficiency,Mode rate tricuspid regurgitation Take 1 Tablet (20 mg) by mouth once every other day. 45 Tablet 3 04/02/20 25 Active pravastatin 10 mg tabletIndications: Hypercholesterolem ia Take 1 Tablet (10 mg) by mouth once daily. For Cholesterol. 90 Tablet 3 05/07/20 Active acetaminophen SR (Pain Relief (acetaminophen)) 650 mg Extended-Release tabletIndications: Primary osteoarthritis of right hip Take 1 Tablet (650 mg) by mouth every 8 hours if needed (Pain). Max acetaminophen dose: 4000mg in 24 hrs. 05/26/20 Active biotin 5,000 mcg sublIndications:He alth care maintenance Take 5,000 mcg by mouth once daily. 05/26/20 Active medication order composerIndication s:Health care maintenance FD Guard (matt oil and menthol) - Take 1-2 capsules by mouth before a meal Preservision Areds 2 - Take 1 capsule by mouth twice daily 05/26/20 Active artificial tears (peg 400 0.4%-propylene glycol 0.3%) (Systane (propylene glycoL)) ophthalmicIndicati ons:Dry eye syndrome of both eyes Place 1-2 Drops into both eyes 4 times daily if needed for Dry Eyes. 05/26/20 Active docusate 100 mg capsuleIndications :Irritable bowel syndrome with both constipation and diarrhea Take 1 Capsule (100 mg) by mouth once daily. 05/26/20 Active psyllium (MetamuciL) 0.4 gram capsuleIndications :Irritable bowel syndrome with both constipation and diarrhea Take 1-2 Capsules by mouth once daily. 05/26/20 Active metoprolol succinate (TOPROL XL) 25 mg Sustained-Release tabletIndications: HTN (hypertension),PAC (premature atrial contraction) Take 1 Tablet (25 mg) by mouth once daily. 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 Sees urologist, History of endometrial cancer 05/15/2025 Irritable bowel syndrome wit h both constipation and diarrhea 05/07/2025 Pancreatic lesion 04/30/2025 Overview (05/13/2025): March 2025: MRI of the liver showed spot in the pancreas that was questionable and is small. With this spot in pancrease, radiologist recommended repeating MRI in 2 years to repeat visit and recheck this. If it does not change we would continue to recheck the MRI every 2 years for 10 years to make sure it does not change. Due for repeat MRI of the pancreas March 2027. April 2025: [place] [facility] Consult Dr. 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 Have ordered MRI to be done in 5 months and if this remains stable she would not need another one for 18 months down the line. This will likely not progress to pancreatic cancer in her lifetime if follow-up MRI in 6 months remained stable. We can discuss discontinuing surveillance after follow-up MRI. Greater trochanteric bursitis of left hip 2024 Primary osteoarthritis of left hip 08/25/2024 Aortic valve regurgitation 01/14/2024 AMD (age related macular degeneration) Fuchs' corneal dystrophy 12/24/2023 Acute lower GI bleeding 11/21/2022 Overview (11/23/2022): October 2022: Hemodynamically stable. Colonoscopy showed 3 potential sources - large rectal polyp - removed, radiation proctosigmoiditis, or diverticulosis, BUT no active bleeding at this time. Hip pain, left 05/17/2022 Overview (07/30/2023): April 2022: Left hip Greater Trochanteric Bursa injection by Dr. Sousa. Jul 11, 2023: Ultrasound-guided left intra-articular joint injection of steroid by Dr. Amor, no significant help. 07/27/2023: Repeat left greater trochanteric bursa injection by Dr. Sousa. Chronic right shoulder pain 12/28/2021 Overview (12/28/2021): November 2021: did right Shoulder subacromial bursa injection. Primary osteoarthritis of right hip 07/18/2021 Hip pain, right 07/21/2020 Overview (03/02/2021): Jun 2020: Ultrasound guided steroid injection. Lidocaine effect: reported 50% relief of the hip joint symptoms February 23, 2021: Repeat ultrasound guided right hip steroid injection, 30 minutes of walking, the patient reported 60% relief overall. Her right anterior hip and groin region pain was nearly painfree, but the pain behind the knee and into the calf was not better. 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 Dry eye syndrome of both eyes 08/05/2019 Epiphora due to insufficient drainage of both si pito 12/18/2017 Endometrial cancer 06/27/2017 Overview (01/14/2024): 2015: Had hysterectomy and oophorectomy and lymph node dissection. Stage IIIA Bilateral pseudophakia 10/23/2016 Vision problems 01/05/2014 02/27/2023 Rheumatic fever 01/05/2014 02/27/2023 Gastric polyps 01/05/2014 02/27/2023 Arthritis 01/05/2014 02/27/2023 Overview (02/27/2023): Joints, fingers, toes, and back. Persistent headaches 01/05/2014 02/27/2023 Meningioma 12/20/2011 Overview (10/15/2022): Per MRI- 11/2011-2.5 cm enhancing extra-axial mass adjacent to the posterolateral aspect of the left temporal lobe consistent with a meningioma. MRI 06/2018 no change May 2021: MRI brain shows stable findings. Advance care planning 11/24/2011 Overview (11/24/2011): Patient has identified Health Care Agent(s): Yes Add Health Care Agents: Yes Health Care Agent(s): Primary Health Care Agent: Andrea Ortiz Relationship: Phone: (h) [phone] (c) [phone] Secondary Health Care Agent: Jose Guadalupe Zepeda Relationship: son Phone: h) [phone] (c) [phone] Patient has Advance Care Plan Documents (Health Care Directive, POLST): Yes Advance Care Plan Documents: Health Care Directive Patient has identified Specific Treatment Preferences: Yes Specific Treatment Preferences: a.) Code Status: DNR/ Do Not Attempt Resuscitation - Allow a Natural b.) Goals of Treatment: ii. Limited Interventions and treat reversible conditions. Provide interventions aimed at treatment of new or reversible illness/injury or non-life threatening chronic conditions. Duration of invasive or uncomfortable interventions should generally be limited.- Do not intubate c.) Interventions and Treatments: i. Antibiotics: - Use Aggressive antibiotic treatment ii. Nutrition/Hydration: - Offer food and liquids by mouth - Tube feeding though mouth or nose - Tube feeding directly into GI tract - IV fluid administration - Time limited trial of nutrition/hydration for reversible condition; questions mcc use iii. Transfusion: - Blood products for comfort/relief of symptoms only iv. Dialysis: - Dialysis for short term for reversible condition; questions termite technician use Assessment & Plan (11/24/2011 7:44 AM GAMES MANAGER): Advance Care Planning: Disease-specific Session Swapna Ortiz is an [facility] patient and her primary care physician is Dr. Earlene Tracy with the [facility]. Advance care planning discussions were completed with Swapna and her healthcare agent, , Andrea Ortiz at their home in [place]. Understanding of Illness and Disease [place]: Swapna identifies her medical condition as good. She was diagnosed with fibromyalgia in 1992 which affects her legs, arms and back; has headaches and trouble sleeping. She will use a muscle relaxant as needed. She tells me her symptoms are intermittent and are associated with stress and doing too much. Swapna had rheumatic fever as a child and has occasional swelling and aching of her joints, especially hands. She is on medication for hypertension and hyperlipidemia which are under control with medication. She understands the fibromyalgia may affect her quality of life; however, states at this time her health has not significantly changed her life. Goals of Care: Swapna currently hopes to stay active, maintain independence, control pain and symptoms, have comfort cares and with dignity. Quality of Life: The following present and future experiences are most important for Swapna to live well: Reading, Family Activities, Handwork(kitting and quilting) Cooking / Baking, Computer Use, Walking / Exercise (attends [employer] 2-3 x a week), Volunteering at [employer] and for [employer]. 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 She attends [employer] study every week and is a member of [facility] [employer]. Swapna has been to Andrea for 12 years. She has 4 children and 6 grandchildren. Swapna leanna with serious challenges in her life: Family: , Andrea, her children, friend, Mabel and her belief in the Lord. Swapna identifies the following fears and worries about her medical care: having uncontrolled pain or symptoms, becoming a physical burden, becoming a financial burden and losing mental capacity as noted with her statement of treatment preferences. Treatment and Care Preferences: Past experiences in dealing with family and/or friends that have or been seriously ill include the of her first , Canelo at age 29 from acute leukemia (leaving her with 2 babies; 6 months and 2 years); the of her second , Lamin age 54 from melanoma of the spine (Swapna cared for him at home and eventually he received Hospice); the of her mother age 84 from a stroke following heart surgery, and her father age 53 from a farm accident. . As a result of these experiences, Swapna expresses these health care preferences: If/when Swapna is at the end-stage of her illness or terminally ill, she has no specific preferences; either the hospital or at home as it will depend on the circumstances at the time. Summary Swapna's Treatment Preferences: LOW SURVIVAL; HIGH TREATMENT BURDEN: If Swapna suffered a serious complication, such that she was facing a prolonged hospital stay, required ongoing medical interventions, and the chance of living through the complication was low (for example, only 5 out of 100 would live), Swapna would choose: to focus treatment on comfort and quality of life (Quality of life is more important than length of life to Swapna.) HIGH SURVIVAL; LOW FUNCTIONAL STATUS: If Swapna had a serious complication and had a good chance of living through the complication but it was expected that she would never be able to walk or talk again and would require 24 hour nursing care, she would choose: to focus treatment on comfort and quality of life (Quality of life is more important than length of life to Swapna.) HIGH SURVIVAL; LOW COGNITIVE STATUS: If Swapna had a serious complication and had a good chance of living through the complication but it was expected that she would never know who she was or who she was with and would require 24 hour nursing care, she would choose: to focus treatment on comfort and quality of life (Quality of life is more important than length of life to Swapna.) CARDIO-PULMONARY RESUSCITATION (CPR): The facts, risks and benefits of CPR were discussed with Swapna. If she had a sudden event that caused her heart and breathing to stop, she: WOULD NOT want CPR attempted and instead would prefer that a natural occur. MECHANICAL VENTILATION: If Swapna had an episode where she was unable to breathe on her own, she would choose the following: attempt to use any appropriate non- invasive method to assist breathing, but DO NOT use mechanical ventilation Swapna has chosen her healthcare agent to: do what he or she thinks is best at the time, considering Swapna's wishes Follow Up Plan: Swapna was encouraged to continue advance care planning discussions with her Designated Family Member: , Andrea Ortiz and primary care provider. Advance Care Planning discussion guide, CPR fact sheet and Hard Choices for [place] People booklet were given to Swapna and her health care agent for review. Swapna identified the following concerns during her advance care planning session: the intermittent symptoms from her fibromyalgia Questions identified for her primary care provider: follows with her physician as needed. Documents addressed during this advance care planning session: Health Care Agents identified. Primary health care agent is Andrea Maurice; secondary health care agent is ladan Zepeda. Health Care Directive completed and scanned into medical record. Statement of Treatment Preferences for illness completed and scanned into the medical record. Recommendations/Plan: Swapna and her primary health care agent, gracie Mendez to review Advance Care Plan with Swapna's alternate healthcare agent, ladan Zepeda and give him a copy of her Health Care Directive. Swapna would benefit from: Care Navigation (for possible future needs) Care Navigation Help Desk Care Navigation brochure(s) was given to Swapna and/or her healthcare agent. Advance Care Planning recommendations and Swapna's documents and discussion were cc e d to her primary provider. A pleasure meeting with Swapna and her , Andrea today. Call if there are questions. Interviewer: Respectfully, Cher Castillo RN CM Advance Care Planning [employer] [phone] e-mail: [email or web address] 11/23/2011 Colon polyp 07/17/2011 Overview (11/28/2022): Colonoscopy 06/2011 multiple polyps repeat in 1 year Colonoscopy 07/2012 polyps repeat in 2 years Colonoscopy 09/2014 polyps repeat in 3 years Colonoscopy 03/2017 diverticulosis repeat in 5 years Colonoscopy 12/2017 2 polyps, no colitis, repeat in 5 years October 2022: Colonoscopy done, polyps present. 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 HYPERTENSION 06/10/2003 05/21/2007 HX, PERSONAL, COLONIC POLYPS 07/11/2000 10/16/2014 Overview (05/21/2007): last colonoscopy -2005, needs repeat in 5 yrs, no polyps Encounters Date Type Department Care Team Description 07/15/2025 Travel 07/09/2025 Telephone [facility] [address] [place] [address] Estefani Mtz NP Follow Up (EKG) 07/09/2025 Nurse Triage [facility] [address] [place] [address] Omar Sousa MD Health Maintenance Update 07/08/2025 1:45 PM CDT Orders Only [facility] [address] [place] [address] <No scans attached> 07/08/2025 Travel 07/04/2025 Travel 07/03/2025 2:10 PM CDT Office Visit [facility] [address] [place] [address] Estefani Mtz NP Pre-Op Exam (07/15/2025 DOS) 07/03/2025 Travel 07/01/2025 Travel 06/23/2025 Telephone [facility] [address] [place] [address] Jm Mcaedo MD Medication Management; Health Maintenance Update 06/15/2025 Orders Only [facility] Scanner 1 scan: (1-Ord) [place] [facility], CYSTOSCOPY, 06/15/2025 06/12/2025 Refill [facility] [address] [place] [address] Jm Macedo MD Refill Request (Metoprolol Succinate) 06/08/2025 9:05 AM CDT Office Visit [facility] [address] [place] [address] Omar Sousa MD Preoperative Exam (DOS: 06/10/2025 Bladder Surgery to remove a Tumor /Dr Rafiq He/[facility]/ ) 06/08/2025 Travel 06/04/2025 Travel 06/02/2025 Orders Only [facility] Scanner 1 scan: (1-Ord) [place] [facility], URINALYSIS +, 06/02/2025 06/02/2025 Orders Only [facility] Scanner 1 scan: (1-Ord) [place] [facility], BLADDER SCAN, 06/02/2025 06/02/2025 Orders Only [facility] Scanner 1 scan: (1-Ord) [place] [facility], CYSTOSCOPY - FEMALE, 06/02/2025 05/26/2025 3:30 PM CDT Pharmacist Medication Management [facility] [address] [place] [address] Gisselle Bernard PharmD Pharmacist Medication Management (CMR initial - provider referral - in-clinic visit) 05/26/2025 Travel 05/22/2025 9:30 AM CDT Ancillary Procedure [facility] [address] [facility] [address] [place] [address] 05/21/2025 Travel 05/20/2025 Orders Only [facility] Scanner 1 scan: (1-Ord) [place] [facility], URINE CYTOLOGY, 05/20/2025 05/20/2025 Transcribe Orders Customer Experience [facility] [phone] Billie Perez PA 05/19/2025 Orders Only [facility] Scanner 1 scan: (1-Ord) PATHNOSTICS, URINE, VOIDED, 05/19/2025 05/15/2025 9:05 AM CDT Office Visit [facility] [address] [place] [address] Catalina Pires, Dysuria 05/15/2025 Travel 05/15/2025 Nurse Triage [facility] [address] [place] [address] Omar Sousa MD Urinary Problem 05/13/2025 Telephone [facility] [address] [place] [address] Omar Sousa MD Referral (Urogynecology) 05/12/2025 Travel 05/11/2025 11:15 AM CDT Nurse/Clinic Staff Only [facility] [address] [place] [address] Blood Pressure 05/11/2025 10:30 AM CDT Orders Only [facility] [address] [place] [address] Lab, Farm [facility] 05/11/2025 Travel 05/08/2025 Travel 05/07/2025 1:25 PM CDT Office Visit [facility] [address] [place] [address] Omar Sousa MD Medicare ANNUAL (subsequent) Visit (Age 84) 05/06/2025 Travel 04/30/2025 Telephone [facility] [address] [facility] [place] [address] Omar Sousa MD Results 04/23/2025 Refill [facility] [address] [place] [address] Omar Sousa MD Refill Request (Trazodone) 04/22/2025 9:45 AM CDT Ancillary Procedure [facility] [address] [facility] [address] [place] [address] 04/22/2025 Travel 04/17/2025 Travel from Last 3 Months Immunizations Immunization Administration Dates Next Due AMB Influenza, IIV3 (Age >=3 years)(Flu Clinic Only) 09/13/2010,09/14/2008 COVID-19 vaccine ([employer]-U4EA NTech 30mcg/0.3mL) 12YO+ BIVALENT PF, MDV 06/07/2023 COVID-19 vaccine ([employer]-Bio NTech 30mcg/0.3mL) PF, MDV 02/01/2021,01/11/2021 INFLUENZA, IIV3 PF (AGE >= 6 MO) 09/05/2013 Influenza A (H1N1), Inactiva caryl (Age >=3 Years) 12/09/2009 Influenza, High-dose Inactivated 024,09/23/2019,08/08/2018,08/02,09/03/2015,08/14/2014 Influenza, High-dose Quadriv alent Inactivated 07/26/2022 Influenza, IIV3 (Age >=3 years) 08/08/2012,09/29,09/24/2007 Influenza, IIV4 08/01/2017 Influenza, Inactivated AIIV4 (Age 65+ Years) Preserv Free 09/19/2023,08/30/2021,08/20/2020 Pneumococcal Poly,23-Valent (Pneumovax) 11/29/2016 Pneumococcal conj 13-Valent (Prevnar 13) 11/02/2015 RSV, Recombinant ADJ Reconst ituted (Arexvy 120MCG/0.5mL) 11/11/2024 Td (Age >=7 Years) 04/27/2006 Td, Preservative Free (age >= 7 Years) 7 Tdap 05/26/2023 Zoster (Shingrix-RZV, recombinant) 01/19/2020, Zoster (Zostavax-ZVL, live) 05/26/2009 Family History Medical History Relation Name Comments Other Father 54 yo of F arm Accident. Diabetes Maternal Grandfather Cancer-breast Maternal Grandmother Cancer-colon Maternal Uncle Diabetes Mother Heart Disease Mother Stroke Mother Stroke during/ after Heart Surgery. Genetic Other Grandmother- Br eat cancer~Mother - Diabetes, heart, stroke/Grandmother- Breat cancer~Mother - Diabetes, heart, stroke~cataracts and macular degeneration/Grandmother- Breast cancer~Mother - Diabetes, heart, stroke~cataracts and macular degeneration/M.Grandmother- Breast cancer~Mother - Diabetes, heart, stroke~cataracts and macular degeneration~colon cancer- M. Uncle, PGM/M.Grandmother- Breast cancer~Mother - Diabetes, heart, stroke~cataracts and macular degeneration~colon cancer- M. Uncle, PGM~no hx of problmes with anesthesia/M.Grandmother- Breast cancer~Mother - Diabetes, heart, stroke~cataracts and macular degeneration~colon cancer- M. Uncle, PGM~no hx of problems with anesthesia Cancer-colon Paternal Grandmother Cancer-ovarian No Family History Relation Name Status Comments Brother 1 Alive Brother 2 Alive Child 1 Alive Child 2 Alive Child 3 Alive Child 4 Alive Father (Age 54) farm accid ent Maternal Grandfather Maternal Grandmother Maternal Uncle Mother (Age 84) stroke com plicated by diabetes Other Paternal Grandfather Paternal Grandmother Social History Tobacco Use Types Packs/Day Years Used Date Smoking Tobacco: Never Passive Smoke Exposure: Never Smokeless Tobacco: Never Tobacco Cessation:Counseling Given: Not Answered Alcohol Use Standard Drinks/Week Comments Never 0 (1 standard drink = 0.6 oz pur e alcohol) PHQ-2 Answer Date Recorded PHQ-2 TOTAL SCORE 0 05/05/2025 Social Connections Answer Date Recorded Do you often feel lonely or isolated from those around you? 0 12/18/2024 Financial Resource Strain Answer Date R ecorded Difficulty of Paying Living Expenses 3 12/18/2024 Difficulty of Paying Living Expenses Not on file 12/18/2024 Food Insecurity Answer Date Recorded Do you worry your food will run out before you are able to buy more? 1 12/18/2024 Transportation Needs Answer Date Record ed Does lack of transportation keep you from medica l appointments? 1 12/18/2024 Does lack of transportation keep you from work, meetings or getting things that you need? 1 12/18/2024 Housing Stability Answer Date Recorded What is your housing situation today? 1 12/18/2024 Utilities Answer Date Recorded Do you have trouble paying f or utilities (for example, heat, electricity, water, phone)? 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 Gender Identity Not on file Sexual Orientation Not on file Occupation Industry Job Start Date Job End Date retired Not on file Not on file Not on file Obstetrics History Para Term AB IAB SAB Ectopic Multiple Livin g Live Births 4 4 4 0 0 0 0 0 0 4 Date Outcome GA Total Labor Labor/2nd/3rd Weight Sex Type Anes PTL [place] A1 A5 Name Clin Term Term Term Term Last Filed Vital Signs Vital Sign Reading Time Taken Comments Blood Pressure 116/68 07/03/2025 2:09 PM CDT Pulse 80 07/03/2025 2:09 PM CDT Temperature 36.9 C (98.4 F) 07/03/2025 2:09 PM CDT Respiratory Rate 20 07/03/2025 2:09 PM CDT Oxygen Saturation 96% 07/03/2025 2:09 PM CDT Inhaled Oxygen Concentration - - Weight 54.6 kg (120 lb 4.8 oz) 07/03/2025 2:09 P M CDT Height 153.4 cm (5' 0.4) 07/03/2025 2:09 PM CDT Body Mass Index 23.18 07/03/2025 2:09 PM CDT Plan of Treatment Upcoming Encounters Date Type Department Care Team (Late st Contact Info) Description 07/20/2025 10:20 AM CDT Office Visit [facility] [address] [place] [address] Omar Sousa MD [address] [place] [address] 07/21/2025 2:00 PM CDT Ancillary Procedure [facility] [address] [place] [address] 08/11/2025 1:00 PM CDT Office Visit [facility] [address] [facility] [address] [place] [address] [place] [address] [place] [address] Scheduled Procedures Name Priority Associated Diagnoses Date/Ti me SURGICAL PROCEDURE (TYPE PROCEDURE DESCRIPTION BELOW) Elective Primary osteoarthritis of left hip Health Maintenance Due Date Last Done Comments COVID-19 vaccine series ( season) 2025 09/03/2024, 09/19/2023, 06/07/2023, Additional history exists Influenza Vaccine (#1) 2025 , 09/19/2023, 08/30/2021, Additional history exists Depression screening for age 12+ 05/07/2026 05/07/2025, 05/05/2025, 03/23/2025, Additional history exists Medicare Wellness for age 65+ 05/08/2026 05/07/2025, 01/14/2024, 10/13/2022, Additional history exists BMI (ht and wt on same day) for age 18+ 07/03/2026 07/03/2025, 05/07/2025, 11/14/2024, Additional history exists Tetanus booster 05/26/2033 05/26/2023, 0812/2016, 04/27/2006 Pneumococcal series for age 50+ Completed 11/29/2016, 11/02/2015 Zoster (shingles) series for age 50+ Completed 01/19/2020, 09/23/2019, 05/26/2009 DEXA/DXA scan for age 65+ Completed 2021, 06/18/2018, 08/16/2012, Additional history exists RSV vaccine for adults or Completed 11/11/2024 Hepatitis B series for 19+ Aged Out N o longer eligible based on patient's age to complete this topic Medical Devices Implanted Type Area Morning Show Producer Device Identifier Shelf Expiration Date Model / Serial / Lot Lens Iol 20.0 Wf [id number]-25. 0 - [id number] Implanted:Qty: 1 on 08/10/2014 by Miquel Santana MD at [facility] Left: Eye [employer] [id number]-48. 0# / [id number] / Lens Iol 19.5 Wf [id number]-04. 5 - [id number] Implanted:Qty: 1 on 08/24/2014 by Miquel Santana MD at [facility] Right: Eye [employer] 05/25/2019 [id number]-54. 5# / [id number] / Insert Poly Trident 36mm Implanted:Qty: 1 on 07/18/2021 by Igor Ruano MD at [facility] Right: Hip 02/28/2026 723-00-36D / / [id number] Description:INSERT POLY TRID ENT 36MM Clusterhole Acet Shell 48mm Implanted:Qty: 1 on 07/18/2021 by Igor Ruano MD at [facility] Right: Hip 04/03/2026 702-04-48D / / [id number] Description:CLUSTERHOLE ACET SHELL 48MM Screw Lp Hex 6.5 X 30 Implanted:Qty: 1 on 07/18/2021 by Igor Ruano MD at [facility] Right: Hip 01/14/2026 [id number] / / [id number] Description:SCREW LP HEX 6.5 X 30 Stem Hip Sz 4 127 Deg Accolade Ii - [id number] Implanted:Qty: 1 on 07/18/2021 by Igor Ruano MD at [facility] Right: Hip [employer] 04/27/2026 [id number] / / [id number] Head Hip Od36mm +0 [employer] Delta C-Taper Alumina Cer - [id number] Implanted:Qty: 1 on 07/18/2021 by Igor Ruano MD at [facility] Right: Hip [employer] 04/04/2026 6570-0-136 / / [id number] Procedures Procedure Name Priority Date/Time Associated Diagnosis Comments URINALYSIS MICROSCOPIC Routine 1:41 PM CDT UTI (urinary tract infection), uncomplicated URINE CULTURE Routine 07/08/2025 1:41 PM CDT UTI (urinary tract infection), uncomplicated URINALYSIS MACROSCOPIC - [facility] ONLY POC DIP ([facility]) Routine 07/08/2025 1:41 PM CDT UTI (urinary tract infection), uncomplicated BASIC METABOLIC PANEL Routine 07/03/2025 2:55 PM CDT Preoperative examination SCAN-OPERATIVE/PROCEDUR E REPORT 06/15/2025 12:00 AM CDT SCAN-LABORATORY REPORT 12:00 AM CDT SCAN-DIAGNOSTIC REPORT 12:00 AM CDT SCAN-OPERATIVE/PROCEDUR E REPORT 06/02/2025 12:[address] ABDOMEN PELVIS UROGRAM WWO STAT 05/22/2025 9:48 AM CDT Dysuria SCAN-PATHOLOGY REPORT 05/20/2025 12:00 AM CDT SCAN-PATHOLOGY REPORT 05/19/2025 12:00 AM CDT URINALYSIS MACROSCOPIC - [facility] ONLY POC DIP ([facility]) Routine 05/15/2025 9:02 AM CDT Dysuria URINALYSIS MICROSCOPIC Routine 9:01 AM CDT Dysuria URINE CULTURE Routine 05/15/2025 9:01 AM CDT Dysuria AMB CONSULT TO GASTROENTEROLOGY Routine 05/12/2025 7:31 PM CDT Irritable bowel syndrome with both constipation and diarrhea LIPID PANEL W REFLEX MEASURED LDL Routine 05/11/2025 10:20 AM CDT Hypercholesterolemia BASIC METABOLIC PANEL Routine 05/11/2025 10:20 AM CDT Hypertension MR ABDOMEN LIVER WWO Routine 04/22/2025 10:28 AM CDT Liver lesion XR DXA BONE DENSITY 2 SITES AXIAL Routine 10/25/2022 11:15 AM GAMES MANAGER Postmenopausal from Last 3 Months or Most Recently Relevant to Health Maintenance Results * (ABNORMAL) POCT Urinalysis Dipstick Only [[id number]] (07/08/2025 1:41 PM CDT) Only the most recent of2 resultswithin the time period is included. SPECIFIC GRAVITY 1.015 1.001 - 1.035 07/08/2025 1:48 PM CDT [facility] PROTEIN 1+(A) NEGATIVE 07/08/2025 1:48 PM CDT [facility] GLUCOSE NEGATIVE NEGATIVE 07/08/2025 1:48 PM CDT [facility] KETONES NEGATIVE NEGATIVE 07/08/2025 1:48 PM CDT [facility] BILIRUBIN NEGATIVE NEGATIVE 07/08/2025 1:48 PM CDT [facility] OCCULT BLOOD 2+(A) NEGATIVE 07/08/2025 1:48 PM CDT [facility] NITRITE NEGATIVE NEGATIVE 07/08/2025 1:48 PM CDT [facility] PH 6.5 5.0 - 8.0 07/08/2025 1:48 PM CDT [facility] LEUKOCYTE ESTERASE 2+(A) NEGATIVE 07/08/2025 1:48 PM CDT [facility] Urine URINE SPECIMEN / Unknown Non-Blood / Unknown 07/08/2025 1:41 PM CDT 07/08/2025 1:41 PM CDT Estefani Mtz DONOR SERVICES TECHNICIAN URINE Final Res ult [employer] [facility] [address] [place] [address], [place] [phone] [address] * (ABNORMAL) URINALYSIS MICROSCOPIC [14070.1] - routine (07/08/2025 1:41 PM CDT) Only the most recent of2 resultswithin the time period is included. RBC 0-2 0-2, None Seen /HPF 07/08/2025 11:38 PM CDT [facility] WBC 11-25(A) 0-2, 3-5, None Seen /HPF 07/08/2025 11:38 PM CDT [facility] BACTERIA None Seen None Seen, Rare, Few Bacteria/ HPF 07/08/2025 11:38 PM CDT [facility] EPITHELIAL CELLS None Seen None Seen, Few Epi/HPF 07/08/2025 11:38 PM CDT [facility] HYALINE CASTS 0-2 0-2, 3-5 /LPF 07/08/2025 11:38 PM CDT [facility] Urine URINE SPECIMEN / Unknown Non-Blood / Unknown 07/08/2025 1:41 PM CDT 07/08/2025 1:41 PM CDT Estefani Mtz DONOR SERVICES TECHNICIAN URINE Final Res ult [facility] [address] [place] [address], * URINE CULTURE [03668.2] (07/08/2025 1:41 PM CDT) Only the most recent of2 resultswithin the time period is included. CULTURE <10,000 CFU/mL multiple organisms 07/10/2025 3:07 PM CDT [facility] Urine URINE SPECIMEN / Unknown Non-Blood / Unknown 07/08/2025 1:41 PM CDT 07/08/2025 1:41 PM CDT us Estefani Mtz NP MICROBIOLOGY Final Res ult [facility] [address] [place] [address], [place] * (ABNORMAL) BASIC METABOLIC PANEL (07/03/2025 2:55 PM CDT) Only the most recent of2 resultswithin the time period is included. Pathologist [facility] SODIUM 141 135 - 146 mmol/L 07/04/2025 3:43 AM CDT [facility] POTASSIUM 4.2 3.5 - 5.3 mmol/L 07/04/2025 3:43 AM CDT [facility] CARBON DIOXIDE 33(H) 20 - 32 mmol/L 07/04/2025 3:43 AM CDT [facility] GLUCOSE 101(H) 65 - 99 mg/dL 07/04/2025 3:43 AM CDT [facility] Comment: Fasting reference interval For someone without known diabetes, a glucose value between 100 and 125 mg/dL is consistent with prediabetes and should be confirmed with a follow-up test. CALCIUM 9.0 8.6 - 10.4 mg/dL 07/04/2025 3:43 AM CDT [facility] CREATININE 1.23(H) 0.60 - 0.95 mg/dL 07/04/2025 3:43 AM CDT [facility] BUN/CREATININE RATIO 15 6 - 22 (calc) 07/04/2025 3:43 AM CDT [facility] EGFR 43(L) > OR = 60 mL/min/1. 73m2 07/04/2025 3:43 AM CDT [facility] UREA NITROGEN (BUN) 19 7 - 25 mg/dL 07/04/2025 3:43 AM CDT [facility] ELECTROLYTE BALANCE 7 7 - 17 mmol/L (calc) 07/04/2025 3:43 AM CDT [facility] CHLORIDE 101 98 - 110 mmol/L 07/04/2025 3:43 AM CDT [facility] Blood BLOOD SPECIMEN / Unknown [facility] / Unknown 07/03/2025 2:55 PM CDT 07/03/2025 2:59 PM CDT us Estefani Mtz DONOR SERVICES TECHNICIAN CHEMISTRY Final Res ult [facility] [id number] [place] [address], * SCAN-OPERATIVE/PROCEDURE REPORT (06/15/2025 12:00 AM CDT) us Scanner OTHER Final Result * SCAN-OPERATIVE/PROCEDURE REPORT (06/02/2025 12:00 AM CDT) us Scanner OTHER Final Result * SCAN-DIAGNOSTIC REPORT (06/02/2025 12:00 AM CDT) us Scanner OTHER Final Result * SCAN-LABORATORY REPORT (06/02/2025 12:00 AM CDT) us Scanner OTHER Final Result * CT ABDOMEN PELVIS UROGRAM WWO (05/22/2025 9:48 AM CDT) Anatomical Region Laterality Modality Abdomen, Pelvis, KIDNEYS, BLADDER Computed Tomography 05/22/2025 9:58 AM CDT Impressions 05/22/2025 9:58 AM CDT 1. Normal renal enhancement. No hydroureteronephrosis. Subcentimeter hypodensities are too small to characterize however statistically represent cysts. No nephrolithiasis. No discrete abnormal areas of urothelial thickening or enhancement 2. Streak artifact degrades fine detail evaluation of the pelvis. Urinary bladder is suboptimally distended also degrading evaluation. Please note that all CT scans at this facility use dose modulation, iterative reconstruction, and/or weight-based dosing when appropriate to reduce radiation dose to as low as reasonably achievable. Dictated by Jose Guadalupe Huerta MD @ 05/22/2025 9:58:50 AM (Electronically Signed) Narrative 05/22/2025 9:58 AM CDT For Patients: As a result of the Cures Act, medical imaging exams and procedure reports are released immediately into your electronic medical record. You may view this report before your referring provider. If you have questions, please contact your health care provider. INDICATION: Dysuria. TECHNIQUE: CT abdomen and pelvis urogram without and with 75 cc Omnipaque 350 IV contrast. Contrast images were obtained in the nephrographic and delayed phases. COMPARISON: February 2025. FINDINGS: Lower chest: The visualized lower lungs are aerated. No pleural or pericardial effusion. ABDOMEN: Liver: Normal enhancement. Subcentimeter hypodensities are too small to characterize however statistically represent cysts. Gallbladder and biliary: Normal gallbladder without radiopaque stone. Normal caliber bile ducts. Spleen: Normal size and enhancement. Pancreas: Normal enhancement without peripancreatic inflammatory changes or ductal dilatation. Adrenal glands: Normal adrenal glands. Kidneys and ureters: Normal renal enhancement. No hydroureteronephrosis. Subcentimeter hypodensities are too small to characterize however statistically represent cysts. No nephrolithiasis. No discrete abnormal areas of urothelial thickening or enhancement GI tract: The stomach is relatively decompressed. Normal caliber small and large bowel loops. Normal appendix. Colonic diverticulosis without diverticulitis. Vascular structures: Normal caliber aorta with atherosclerotic calcifications. Lymph nodes: No lymphadenopathy in the abdomen or pelvis by size criteria. Peritoneum: No free air, free fluid, or focal drainable fluid collection. PELVIS: Genitourinary system: Streak artifact degrades fine detail evaluation of the pelvis. Urinary bladder is suboptimally distended also degrading evaluation. SKELETAL STRUCTURES AND SOFT TISSUES: Lumbar spondylosis. Bilateral hip arthroplasties. Procedure Note Jose Guadalupe Huerta MD - 05/22/2025 For Patients: As a result of the Cures Act, medical imagingexams and procedure reports are released immediately into your electronicmedical record. You may view this report before your referring provider.If you have questions, please contact your health care provider. INDICATION: Dysuria. TECHNIQUE: CT abdomen and pelvis urogram without and with 75 cc Omnipaque 350 IVcontrast. Contrast images were obtained in the nephrographic and delayedphases. COMPARISON: February 2025. FINDINGS: Lower chest: The visualized lower lungs are aerated. No pleural orpericardial effusion. ABDOMEN: Liver: Normal enhancement. Subcentimeter hypodensities are too small tocharacterize however statistically represent cysts. Gallbladder and biliary: Normal gallbladder without radiopaque stone.Normal caliber bile ducts. Spleen: Normal size and enhancement. Pancreas: Normal enhancement without peripancreatic inflammatory changesor ductal dilatation. Adrenal glands: Normal adrenal glands. Kidneys and ureters: Normal renal enhancement. No hydroureteronephrosis.Subcentimeter hypodensities are too small to characterize howeverstatistically represent cysts. No nephrolithiasis. No discrete abnormalareas of urothelial thickening or enhancement GI tract: The stomach is relatively decompressed. Normal caliber small andlarge bowel loops. Normal appendix. Colonic diverticulosis withoutdiverticulitis. Vascular structures: Normal caliber aorta with atheroscleroticcalcifications. Lymph nodes: No lymphadenopathy in the abdomen or pelvis by sizecriteria. Peritoneum: No free air, free fluid, or focal drainable fluidcollection. PELVIS: Genitourinary system: Streak artifact degrades fine detail evaluation ofthe pelvis. Urinary bladder is suboptimally distended also degradingevaluation. SKELETAL STRUCTURES AND SOFT TISSUES: Lumbar spondylosis. Bilateral hiparthroplasties. IMPRESSION: 1. Normal renal enhancement. No hydroureteronephrosis. Subcentimeterhypodensities are too small to characterize however statisticallyrepresent cysts. No nephrolithiasis. No discrete abnormal areas ofurothelial thickening or enhancement 2. Streak artifact degrades fine detail evaluation of the pelvis. Urinarybladder is suboptimally distended also degrading evaluation. Please note that all CT scans at this facility use dose modulation,iterative reconstruction, and/or weight-based dosing when appropriate toreduce radiation dose to as low as reasonably achievable. Dictated by Jose Guadalupe Huerta MD @ 05/22/2025 9:58:50 AM (Electronically Signed) Billie TAFOYA CT Final Resu lt * SCAN-PATHOLOGY REPORT (05/20/2025 12:00 AM CDT) Only the most recent of2 resultswithin the time period is included. us Scanner OTHER Final Result * (ABNORMAL) LIPID PANEL W REFLEX MEASURED LDL (05/11/2025 10:20 AM CDT) CHOLESTEROL, TOTAL 164 <200 mg/dL [facility] HDL CHOLESTEROL 47(L) > OR = 50 mg/dL [facility] TRIGLYCERIDES 173(H) <150 mg/dL [facility] LDL-CHOLESTEROL 90 mg/dL (calc) [facility] Comment: Reference range: <100 Desirable range <100 mg/dL for primary prevention; <70 mg/dL for patients with CHD or diabetic patients with > or = 2 CHD risk factors. LDL-C is now calculated using the Rex calculation, which is a validated novel method providing better accuracy than the Friedewald equation in the estimation of LDL-C. Conrado SS et al. SARITHA. 2013;310(19): 4819-4351 (http://education.[employer]/faq/PBN983) CHOL/HDLC RATIO 3.5 <5.0 (calc) [facility] NON HDL CHOLESTEROL 117 <130 mg/dL (calc) [facility] Comment: For patients with diabetes plus 1 major ASCVD risk factor, treating to a non-HDL-C goal of <100 mg/dL (LDL-C of <70 mg/dL) is considered a therapeutic option. Blood BLOOD SPECIMEN / Unknown 05/11/2025 10:20 AM CDT 05/11/2025 10:20 AM CDT Omar Sousa MD CHEMISTRY Final Res ult [facility] [facility] [address] [place] [address], [facility] [address] [place] [address] * MR ABDOMEN LIVER WWO (04/22/2025 10:28 AM CDT) Anatomical Region Laterality Modality Abdomen, LIVER Magnetic Resonan ce 04/22/2025 4:29 PM CDT Impressions 04/22/2025 4:29 PM CDT 1. Liver lesion likely represents an incidental area of transient altered hepatic perfusion no further follow-up suggested. 2. Tiny subcapsular cyst no other suspicious liver lesion. 3. Incidental clustered microcystic lesions in the pancreatic tail. No abnormal gadolinium enhancement. Favor incidental side-branch IPMN. 4. GI consult suggested Follow-up exam can be performed in 2 years. Reference: : Management of Incidental Pancreatic Cysts: A White Paper of the ACR Incidental Findings Committee. Journal of the [employer]. Volume 14, Number 7, May 2017, pages 911-923 Dictated by Konrad Reyes MD @ 04/22/2025 4:29:57 PM (Electronically Signed) Narrative 04/22/2025 4:29 PM CDT For Patients: As a result of the Cures Act, medical imaging exams and procedure reports are released immediately into your electronic medical record. You may view this report before your referring provider. If you have questions, please contact your health care provider. INDICATION: Incidental liver lesion. TECHNIQUE: Abdominal MRI T1-T2 and post-contrast T1. Diffusion weighting. Contrast: Intravenous gadolinium 12 cc. COMPARISON : CT scan abdomen 03/23/2025 FINDINGS: Liver: No masses. Non Cirrhotic morphology. The enhancing lesion barely visible on a single series later arterial subcapsular lateral VIII series 17, image 30. Tiny subcapsular cyst IV left lobe post-contrast image 30. Biliary tree:Gallbladder unremarkable, normal caliber intra and extrahepatic ducts. Spleen, pancreas, adrenal glands: Pancreas: Clustered small fluid signal cystic lesions in the tail with the largest lesion 8 millimeters Ser10 image 13 Spleen: Unremarkable normal size. Adrenal glands: Unremarkable Kidneys:Unremarkable, no masses or hydronephrosis. Lymph nodes: No suspicious adenopathy. Ascites: Absent. Miscellaneous: Small ventral hernia fat containing no bowel loops. Procedure Note Konrad Reyes MD - 04/22/2025 For Patients: As a result of the Cures Act, medical imagingexams and procedure reports are released immediately into your electronicmedical record. You may view this report before your referring provider.If you have questions, please contact your health care provider. INDICATION: Incidental liver lesion. TECHNIQUE: Abdominal MRI T1-T2 and post-contrast T1. Diffusion weighting. Contrast: Intravenous gadolinium 12 cc. COMPARISON : CT scan abdomen 03/23/2025 FINDINGS: Liver: No masses. Non Cirrhotic morphology. The enhancing lesion barely visible on a single series later arterialsubcapsular lateral VIII series 17, image 30. Tiny subcapsular cyst IV left lobe post-contrast image 30. Biliary tree:Gallbladder unremarkable, normal caliber intra andextrahepatic ducts. Spleen, pancreas, adrenal glands: Pancreas: Clustered small fluid signal cystic lesions in the tail with thelargest lesion 8 millimeters Ser10 image 13 Spleen: Unremarkable normal size. Adrenal glands: Unremarkable Kidneys:Unremarkable, no masses or hydronephrosis. Lymph nodes: No suspicious adenopathy. Ascites: Absent. Miscellaneous: Small ventral hernia fat containing no bowel loops. IMPRESSION: 1. Liver lesion likely represents an incidental area of transient alteredhepatic perfusion no further follow-up suggested. 2. Tiny subcapsular cyst no other suspicious liver lesion. 3. Incidental clustered microcystic lesions in the pancreatic tail. Noabnormal gadolinium enhancement. Favor incidental side-branch IPMN. 4. GI consult suggested Follow-up exam can be performed in 2 years. Reference: : Management of Incidental Pancreatic Cysts: A White Paper of the ACRIncidental Findings Committee. Journal of the [employer]. Volume 14, Number 7, May2017, pages 531-347 Dictated by Konrad Reyes MD @ 04/22/2025 4:29:57 PM (Electronically Signed) Omar Sousa MD MR Final Res ult * XR DXA BONE DENSITY 2 SITES AXIAL (10/25/2022 11:15 AM GAMES MANAGER) Anatomical Region Laterality Modality Spine, HIPS, HIPL, HIPR Computed Radiography 10/25/2022 11:1 5 AM GAMES MANAGER Impressions 10/25/2022 1:13 PM GAMES MANAGER Low bone density (OSTEOPENIA). T score meets the World Health Organization (WHO) criteria for low bone density (osteopenia) at one or more measured sites. The risk of osteoporotic fracture increased approximately two-fold for each SD decrease in T-score. Narrative 10/25/2022 1:13 PM GAMES MANAGER For Patients: As a result of the Cures Act, medical imaging exams and procedure reports are released immediately into your electronic medical record. You may view this report before your referring provider. If you have questions, please contact your health care provider. EXAM: XR DXA BONE DENSITY 2 SITES AXIAL LOCATION: [facility] DATE/TIME: 10/25/2022 11:15 AM INDICATION: C. low bone density-osteopenia (must be documented by previous scan) - m85.80 Postmenopausal COMPARISON: None. TECHNIQUE: Dual-energy x-ray absorptiometry performed with routine technique. FINDINGS: Lumbar Spine: L1-L4: BMD: 1.258 g/cm2. T-score: 0.6. Z-score: 2.8 LEFT Hip Total: BMD: 0.809 g/cm2. T-score: -1.6. Z-score: 0.7 LEFT Hip Femoral neck: BMD: 0.864 g/cm2. T-score: -1.3. Z-score: 1.1 WHO Criteria: Osteopenia: T score between -1 and -2.5 SD FRAX Results: Not calculated Procedure Note Neeta Saunders MD - 10/25/2022 For Patients: As a result of the Cures Act, medical imagingexams and procedure reports are released immediately into your electronicmedical record. You may view this report before your referring provider.If you have questions, please contact your health care provider. EXAM: XR DXA BONE DENSITY 2 SITES AXIAL LOCATION: [facility] DATE/TIME: 10/25/2022 11:15 AM INDICATION: C. low bone density-osteopenia (must be documented by previousscan) - m85.80 Postmenopausal COMPARISON: None. TECHNIQUE: Dual-energy x-ray absorptiometry performed with routinetechnique. FINDINGS: Lumbar Spine: L1-L4: BMD: 1.258 g/cm2. T-score: 0.6. Z-score: 2.8 LEFT Hip Total: BMD: 0.809 g/cm2. T-score: -1.6. Z-score: 0.7 LEFT Hip Femoral neck: BMD: 0.864 g/cm2. T-score: -1.3. Z-score: 1.1 WHO Criteria: Osteopenia: T score between -1 and -2.5 SD FRAX Results: Not calculated IMPRESSION: Low bone density (OSTEOPENIA). T score meets the World Health Organization(WHO) criteria for low bone density (osteopenia) at one or more measuredsites. The risk of osteoporotic fracture increased approximately two-foldfor each SD decrease in T-score. Omar Sousa MD DEXA Final Res ult from Last 3 Months or Most Recently Relevant to Health Maintenance Insurance MEDICARE PART A HB ONLY [employer] Advance Directives Documents on File Type Date Recorded Patient Sulfonation Equipment Operator Expl anation Power of Electrician Control Equipment 11/15/2015 3:14 PM TRANG ZEPEDA Healthcare Directive 11/15/2015 3:13 PM H TAYLA DIRECTIVE - JOSE GUADALUPE ZEPEDA Healthcare Directive 11/29/2011 * Full Code (Latest Code Status on File) Date Activated Date Inactivated Comments 11/21/2022 5:41 PM 11/22/2022 1:33 PM Question Answer Comments Code Status Discussion: Reviewed Preferences * Full Code Date Activated Date Inactivated Comments 07/18/2021 8:22 AM 07/19/2021 4:47 PM Question Answer Comments Code Status Discussion: Not Discussed * Full Code Date Activated Date Inactivated Comments 07/06/2017 1:10 PM 07/06/2017 4:48 PM * Full Code Date Activated Date Inactivated Comments 07/06/2017 11:07 AM 07/06/2017 1:10 PM * Full Code Date Activated Date Inactivated Comments 11/04/2015 11:54 AM 11/05/2015 2:31 AM Care Teams Contracts Analyst Relationship Specialty Start Date End Date Omar Sousa MD [address] [place] [id number] PCP - General Family Practice 02/27/23 Smita Liz MD Oncology - Gynecologic 10/20/15 Vanessa Sweeney MD Obstetrics and Gynecology 11/01/15 Nora Waldron, RN, BSN [address] [address] Learn To Swim Instructor Registered Nurse 05/24/16 Igor Ruano MD [address] [address] Surgery - Orthopedics 10/13/22 [place] [address] [place] [address] Cardiovascular Disease 10/03/23 Gisselle Bernard PharmD [address] [place] [address] [place] [address] Pharmacist Medication Management Pharmacology 05/26/25 05/26/28
--- OUTSIDE RECORDS SUMMARY | 2025-07-16 09:53 | XMS_ITS | Clinical Summary ---
Author Organization [facility] Address [address] [place] [address]. [place] [address] Care Team Providers Care Psychotherapist Counselor Name Role Phone Omar Sousa MD Primary Care Provider [phone] Allergies Active Allergy Reactions Criticality Noted Date Comments Hydrocodone Other (See Comments) Low 06/10/2025 Loopy Oxycodone-Acetaminophen Nausea Low 10/22/2015 And loopy Propoxyphene Hcl Low 04/27/2006 Mental Status Change Sodium Phosphate Nausea and Vomiting Low 04/27/2006 Medications TRAZODONE HCL PO Take 50 mg by mouth At Bedtime. Takes 1/2 of 100 mg tab Active multivitamin, therapeutic with minerals (THERA-VIT-M) TABS Take 1 tablet by mouth daily. Active acetaminophen (TYLENOL) [address] 650 mg rectally every 8 hours as needed for fever. Active losartan (COZAAR) 25 MG tablet Take 25 mg by mouth daily. Active furosemide (LASIX) 20 MG tablet Take 20 mg by mouth daily. Active docusate sodium (COLACE) 100 MG capsule Take 100 mg by mouth 2 times daily. Active Cholecalciferol (VITAMIN D3) 50 MCG (2000 UT) CAPS Take by mouth. Activ e Biotin 5000 MCG CAPS Take by mouth. Activ e artificial tears OINT ophthalmic ointment Place into both eyes as needed for dry eyes. Active metoprolol succinate ER (TOPROL XL) 25 MG 24 hr tablet Take 25 mg by mouth daily. Active pravastatin (PRAVACHOL) 10 MG tablet Take 10 mg by mouth daily. Active psyllium 400 MG capsule Take 5 capsules by mouth daily. Active ciprofloxacin (CIPRO) 250 MG tabletIndicatio ns:Bladder tumor Take 1 tablet (250 mg) by mouth 2 times daily for 10 doses. 10 tablet 5 07/20/20 25 Active oxyCODONE (ROXICODONE) 5 MG tabletIndicatio ns:Bladder tumor Take 1 tablet (5 mg) by mouth every 6 hours as needed for breakthrough pain. 8 tablet 5 Active oxyBUTYnin (DITROPAN) 5 MG tabletIndicatio ns:Bladder tumor Take 1 tablet (5 mg) by mouth 2 times daily as needed for bladder spasms. 10 tablet 5 Active Active Problems Problem Noted Date Diagnosed Date Rheumatic fever 01/05/2014 Fainting spell 01/05/2014 Persistent headaches 01/05/2014 Gastric polyps 01/05/2014 Arthritis 01/05/2014 Overview (01/05/2014): Joints, fingers, toes, and back. Vision problems 01/05/2014 Encounters Date Type Department Care Team Description 07/15/2025 9:05 AM CDT - 07/15/2025 11:00 AM CDT Surgery [facility] [address] [place] [address] Rafiq He MD Cystoscopy, Bladder Biopsy, 07/15/2025 8:36 AM CDT [facility] [address] [place] [address] Ken Thapa MD 07/15/2025 6:36 AM CDT - 07/15/2025 11:46 AM CDT Hospital Encounter [facility] PreOP/Phase II [address] [place] [address] Rafiq He MD Bladder tumor (Primary Dx) Discharge Disposition: Home or Self Care 07/15/2025 Travel 06/10/2025 2:58 PM CDT - 06/10/2025 4:58 PM CDT Surgery [facility] [address] [place] [address] Rafiq He MD Cystoscopy, transurethral resection of bladder tumor 06/10/2025 2:52 PM CDT Anesthesia Event [facility] [address] [place] [address] Darcie Gomes MD Meredith, Christine R, MARBLEIZER DOUBLE ENDING MACHINE OPERATOR 06/10/2025 11:50 AM CDT - 06/10/2025 6:39 PM CDT Hospital Encounter [facility] PreOP/Phase II [address] [place] [address] Rafiq He MD Bladder tumor (Primary Dx) Discharge Disposition: Home or Self Care from Last 3 Months Immunizations Immunization Administration Dates Next Due Pneumococcal 23 valent 12/18/2011 Social History Tobacco Use Types Packs/Day Years [...] on file 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 Gender Identity Not on file Sexual Orientation Not on file Last Filed Vital Signs Vital Sign Reading [...] Mass Index 23.24 07/15/2025 7:04 AM CDT Plan of Treatment Health Maintenance Due Date Last Done Comments ADVANCE CARE PLANNING 1940 ANNUAL REVIEW OF HM ORDERS 1940 LIPID 1940 FALL RISK ASSESSMENT 2006 PHQ-2 (once per calendar year) 2024 COVID-19 VACCINE (8 - Pfizer risk season) 2025 09/03/2024, 09/19/2023, 06/07/2023, Additional history exists INFLUENZA VACCINE (#1) 2025 , 09/19/2023, 07/26/2022, Additional history exists MEDICARE ANNUAL WELLNESS VISIT 05/07/2026 05/07/2025, 01/14/2024, 10/13/2022, Additional history exists DTAP/TDAP/TD VACCINE (2 - Td or Tdap) 05/26/2033 05/26/2023, 06/27/2017, 04/27/2006 DEXA 10/25/2037 10/25/2022 PNEUMOCOCCAL VACCINE 50+ YEARS Completed 11/29/2016, 11/02/2015, 12/18/2011 ZOSTER VACCINE Completed 01/19/2020, 08/27, 05/26/2009 RSV VACCINE Completed 11/11/2024 HPV VACCINE (No Doses Required) Completed MENINGITIS VACCINE Aged Out No longer eligible based on patient's age to complete this topic Goals Goal Patient Goal Type Associated Problems Recent Progress Patient-Stated? Author MYC ECC SURG ENROLL Care Plan MyC ECC SURG ENROLL No Pranav [employer] Implanted Type Area Director Digital Sales Device Identifier Shelf Expiration Date Model / Serial / Lot Stent Ureteral Polaris Ultra [id number] - [id number] Implanted:Qty : 1 on 06/10/2025 by Rafiq He MD at [facility] Stent Right: U[employer] [id number] 04/22/2028 [id number] Procedures Procedure Name Priority Date/Time Associated Diagnosis Comments ANE AIRWAY SUPRAGLOTTIC PERFORMABLE Routine 07/15/2025 8:55 AM CDT CYSTOSCOPY, WITH CHEMOTHERAPEUTIC AGENT INSTILLATION INTO BLADDER 07/15/2025 8:36 AM CDT 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) Special Needs *[id number] 2GR CYSTOSCOPY, WITH BLADDER NEOPLASM FULGURATION 07/15/2025 8:36 AM CDT 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) Special Needs *[id number] 2GR CYSTOURETHROSCOPY W BIOPSY 07/15/2025 8:36 AM CDT 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) Special Needs *[id number] 2GR LAB RESULT - HIM SCAN 07/04/2025 12:00 AM CDT CREATININE (EXTERNAL RESULT) Routine 07/03/2025 2:55 PM CDT GLUCOSE (EXTERNAL RESULT) Routine 07/03/2025 2:55 PM CDT POTASSIUM (EXTERNAL RESULT) Routine 07/03/2025 2:55 PM CDT EKG 12-LEAD, TRACING ONLY STAT 06/10/2025 4:27 PM CDT XR SURGERY JESSICA FLUORO LESS THAN 5 MIN W STILLS Routine 06/10/2025 3:59 PM CDT SURGICAL PATHOLOGY EXAM Routine 06/10/20 3:32 PM CDT ANE AIRWAY SUPRAGLOTTIC PERFORMABLE Routine 06/10/2025 3:08 PM CDT CYSTOSCOPY,INSERT URETERAL STENT 06/10/2025 2:51 PM CDT Gross hematuria Case Notes * Special Needs *60minAdded within 14 days: severity of dx Edwinnikphilippe will run jessica CYSTOSCOPY, WITH RETROGRADE PYELOGRAM 06/10/2025 2:51 PM CDT Gross hematuria Case Notes * Special Needs *60minAdded within 14 days: severity of dx Edwinnikphilippe will run jessica CYSTOSCOPY, WITH TRANSURETHRAL RESECTION BLADDER TUMOR 06/10/2025 2:51 PM CDT Gross hematuria Case Notes * Special Needs *60minAdded within 14 days: severity of dx Edwinnikova will run jessica EKG CARDIAC - HIM SCAN 12:00 AM CDT from Last 3 Months Results * ANE AIRWAY SUPRAGLOTTIC PERFORMABLE (07/15/2025 8:55 AM CDT) Only the most recent of2 resultswithin the time period is included. Narrative Dejuan Forrest APRN DOUBLE ENDING MACHINE OPERATOR - 07/15/2025 8:55 AM CDT Dejuan Forrest APRN CRNA 07/15/2025 8:56 AM Airway Staff - Other [...] Dentition: Intact and Unchanged Ken Thapa MD LA ANESTHESIA Final Resu lt * Lab Result - HIM Scan (07/04/2025 12:00 AM CDT) 07/04/2025 Provider Outside NON-BEAKER LAB TESTING Final Result * Potassium (External Result) (07/03/2025 2:55 PM CDT) Potassium (External) 4.2 3.5 - 5.3 mmol/L [facility] - SHAUN LOAIZA Blood 07/03/2025 2:55 PM CDT Narrative [facility] FIELDE - 07/03/2025 2:55 PM CDT [facility] - External Lab Results us Provider Outside LAB - HIM EXTERNAL RESULT Final Result Performing Organization Address [facility] Co de Phone Number CEASAR LOAIZA [address] [phone] * (ABNORMAL) Glucose (External Result) (07/03/2025 2:55 PM CDT) Glucose (External) 101(A) 65 - 99 mg/dL [facility] LO[facility] Blood 07/03/2025 2:55 PM CDT Narrative [facility] - 07/03/2025 2:55 PM CDT [facility] - External Lab Results us Provider Outside LAB - HIM EXTERNAL RESULT Final Result Performing Organization Address [facility] de Phone Number CAESAR LOAIZA [address] [place] [address] * (ABNORMAL) Creatinine (External Result) (07/03/2025 2:55 PM CDT) Creatinine (External) 1.23(A) 0.60 - 0.95 mg/dL [facility] GFR Estimated (External) 43(A) > OR = 60 mL/min/1.7 3m2 [facility] LO[facility] Blood 07/03/2025 2:55 PM CDT Narrative [facility] - SHAUN LOAIZA - 07/03/2025 2:55 PM CDT [facility] - External Lab Results Provider Outside LAB - HIM EXTERNAL RESULT Final Result Performing Organization Address [facility] Co de Phone Number CAESAR LOAIZA [address] [phone] * EKG 12-lead, tracing only (06/10/2025 4:27 PM CDT) Systolic Blood Pressure mmHg RADIOLOGY RESULTS Diastolic Blood Pressure mmHg RADIOLOGY RESULTS Ventricular Rate 63 BPM RAD IOLOGY RESULTS Atrial Rate 63 BPM RADIOLOG Y RESULTS LA Interval 134 ms RADIOLOG Y RESULTS QRS Duration 82 ms RADIOLO GY RESULTS QT 396 ms RADIOLOGY RESULTS QTc 405 ms RADIOLOGY RESULTS P [place] 41 degrees RADIOLOGY RESULTS R AXIS 11 degrees RADIOLOGY RESULTS T [place] 7 degrees RADIOLOGY RESULTS Interpretation ECG Sinus rhythm with Premature supraventricular complexes Otherwise normal ECG When compared with ECG of 17-Dec-2011 13:03, PACs are now present Confirmed by MD DEBI, YONY ([id number]) on 06/11/2025 12:52:27 PM RADIOLOGY RESULTS [...] be read by a radiologist or a [facility] non-radiologist provider. us Rafiq He MD IMG DIAGNOSTIC IMAGING OR DERABLES Final Result [facility]IANT * Surgical Pathology Exam (06/10/2025 3:32 PM CDT) Case Report Surgical Pathology Report Case: [id number] Authorizing Provider: Rafiq He MD Collected: 06/10/2025 03:32 PM Ordering Location: [facility] Received: 06/11/2025 06:14 AM [facility] Main OR Pathologist: Igor Aguilar MD [...] the diagnosis as noted. 06/15/2025 5:04 PM CDT LABORATORY Performing Labs The technical component of this testing was completed at [facility]. Stain controls for all stains resulted within this report have been reviewed and show appropriate reactivity. 06/15/2025 5:04 PM CDT LABORATORY Case Images 06/15/2025 5:04 PM CDT LABORATORY Tissue URINARY BLADDER STRUCTURE / Unknown 06/10/2025 3:32 PM CDT 06/11/2025 6:14 AM CDT Rafiq SALGADO - DANA BARNETT Final Res ult LABORATORY [facility] [address], [address] [place] [address], [place] [phone] * EKG Cardiac - HIM Scan (06/10/2025 12:00 AM CDT) 06/10/2025 us Provider Outside ECG ORDERABLES Final Result from Last 3 Months Additional Health Concerns Active Problems Noted Date Diagnosed Date MyC ECC SURG ENROLL 06/04/2025 Insurance Gipis Gip[employer] Advance Directives For more information, please contact: [phone] * Full Code (Latest Code Status on File) Date Activated Date Inactivated Comments 12/17/2011 7:10 PM 12/18/2011 8:56 PM Care Teams Psychotherapist Counselor Relationship Specialty Start Date End Date Omar Sousa MD [place] [address] PCP - General Sports Medicine 06/05/25
--- OUTSIDE RECORDS SUMMARY | 2025-07-16 09:53 | XMS_ITS | Encounter Summary ---
Author Organization [facility] Address [address] [place] [address]. 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 Author MYC ECC SURG ENROLL Care Plan MyC ECC SURG ENROLL No Pranav Hauser documented as of this encounter Visit Diagnoses Not on filedocumented in this encounter Additional Health Concerns Active Problems Noted Date Diagnosed Date MyC ECC SURG ENROLL 06/04/2025 documented as of this encounter Care Teams Nitrocellulose Operator Relationship Specialty Start Date End Date [place] [address] PCP - General Sports Medicine 06/05/25 documented as of this encounter
[2025-07-16 10:03] VITALS: BP 155/70; PULSE 78; RESP 20; TEMP 36.5; O2SAT 96; BMI 23.4
--- NOTE | 2025-07-16 10:21 | ED.GENADULT ---
HPI - General Adult General Chief complaint: Allergic Reaction Stated complaint: medication allergic reaction Time Seen by Provider: 07/16/25 10:16 History of Present Illness HPI narrative: Arrives with concern for allergic reaction. Reports having a procedure on her bladder yesterday and starting new medications. This AM she has redness and swelling to her face, no itching, no rash anywhere else on body. Alert and oriented, VSS, ABCs intact. 85-year-old woman presenting to the emergency department with concern of potential reaction to medication. A month ago had resection of bladder cancer. Was treated subsequently for urinary tract infection with 3 rounds of antibiotics finishing with ciprofloxacin. She discontinued this shortly before being seen again yesterday where she had a gemcitabine wash after a bladder scraping. She was also restarted on ciprofloxacin and oxybutynin. She did take a dose of each yesterday. It is unclear to me why this was restarted but she describes a fear of potentially developing an infection. Has subsequently developed hotness in her cheeks and then a sensation of thickness or fullness in her throat. Not a sore throat. A little difficulty in that regard with swallowing. A week ago did have a brief rash in her right arm she demonstrates. No fever. Able to locate records and message from 07/10 indicates no growth to warrant treatment. Related Data Home Medications ?Medication ?Instructions ?Recorded ?Confirmed Lactobacillus acidophilus 10 10 mg PO DAILY 01/11/23 07/16/25 billion cell capsule (Probacap) Held on 07/16/25. Instructions: Order Change biotin 1,000 mcg chewable tablet 1,000 mcg PO DAILY 01/11/23 07/16/25 Held on 07/16/25. Instructions: Order Change cholecalciferol (vitamin D3) 50 50 mcg PO DAILY 01/11/23 07/16/25 mcg (2,000 unit) capsule Held on 07/16/25. Instructions: Order Change hydrochlorothiazide 12.5 mg capsule 12.5 mg PO DAILY 01/11/23 07/16/25 losartan 50 mg tablet (Cozaar) 50 mg PO DAILY 01/11/23 07/16/25 metoprolol succinate 25 mg 25 mg PO DAILY 01/11/23 07/16/25 tablet,extended release 24 hr pravastatin 10 mg tablet 10 mg PO QHS 01/11/23 07/16/25 trazodone 100 mg tablet 50 - 100 mg PO QHS PRN 01/11/23 07/16/25 ciprofloxacin HCl 250 mg tablet 250 mg PO BID 07/16/25 07/16/25 furosemide 20 mg tablet 20 mg PO Q1D 07/16/25 07/16/25 losartan 25 mg tablet 25 mg PO DAILY 07/16/25 07/16/25 nitrofurantoin 1 cap PO Q12H 07/16/25 07/16/25 monohydrate/macrocrystals 100 mg capsule oxybutynin chloride 5 mg tablet 5 mg PO BID 07/16/25 07/16/25 oxycodone 5 mg tablet 5 mg PO QID PRN 07/16/25 07/16/25 Allergies Allergy/AdvReac Type Severity Reaction Status Date / Time acetaminophen (From Percocet) Allergy Verified 07/16/25 10:00 oxycodone (From Percocet) Allergy Verified 07/16/25 10:00 propoxyphene Allergy Verified 07/16/25 10:00 sodium phosphate Allergy Verified 07/16/25 10:00 Review of Systems Status of ROS: Reports: 6 or more systems reviewed and unremarkable except as noted in History and below [facility] Medical History Lumbar degenerative disc disease ?M51.36 - Other intervertebral disc degeneration, lumbar region (ICD-10) Epiphora due to insufficient drainage of both sides ?H04.223 - Epiphora due to insufficient drainage, bilateral (ICD-10) Bilateral pseudophakia ?Z96.1 - Presence of intraocular lens (ICD-10) Vitiligo ?L80 - Vitiligo (ICD-10) RLS (restless legs syndrome) ?G25.81 - Restless legs syndrome (ICD-10) Meningioma ?D32.9 - Benign neoplasm of meninges, unspecified (ICD-10) Lymphedema ?I89.0 - Lymphedema, not elsewhere classified (ICD-10) Insomnia ?G47.00 - Insomnia, unspecified (ICD-10) HLD (hyperlipidemia) ?E78.5 - Hyperlipidemia, unspecified (ICD-10) Hypercholesteremia ?E78.00 - Pure hypercholesterolemia, unspecified (ICD-10) Fibromyalgia ?M79.7 - Fibromyalgia (ICD-10) Endometrial cancer ?C54.1 - Malignant neoplasm of endometrium (ICD-10) Breast mass ?N63.0 - Unspecified lump in unspecified breast (ICD-10) Arthritis ?M19.90 - Unspecified osteoarthritis, unspecified site (ICD-10) Aortic valve regurgitation ?I35.1 - Nonrheumatic aortic (valve) insufficiency (ICD-10) Surgical History H/O: hysterectomy ?Z90.710 - Acquired absence of both cervix and uterus (ICD-10) Status post breast reduction ?Z98.890 - Other specified postprocedural states (ICD-10) S/P total right hip arthroplasty ?Z96.641 - Presence of right artificial hip joint (ICD-10) Social History Smoking Status: Never smoker How often do you have a drink containing alcohol: never AUDIT-C Alcohol total score: 0 Non-prescribed substance use: denies use Caffeine: Yes Exam Narrative: Exam Narrative: Pleasant. NAD. Breathing easily. Couple spots of erythema on the upper uvula. Maybe a little flushed in the cheeks. No stridor. Lungs are clear. Heart in regular rate and rhythm. I do not see evidence of rash elsewhere. She is well-perfused. Abdomen is soft nontender. Const: Vital Signs, click to edit/add: Vital Signs - 24 hr 07/16/25 10:03 Temperature 97.7 F Pulse Rate [Pulse Oximeter] 78 Respiratory Rate 20 Blood Pressure [Ri ght Upper Arm] 155/70 H Pulse Oximetry 96 Oxygen Delivery Me thod Room Air Documenting provider has reviewed patient's vital signs: yes Course Vital Signs Vital signs: Initial Vital Signs Temperature 97.7 F 07/16/25 10:03 Temperature Source Temporal Artery Scan 07/16/25 10:03 Pulse Rate 78 07/16/25 10:03 Respiratory Rate 20 07/16/25 10:03 Blood Pressure 155/70 H 07/16/25 10:03 Blood Pressure Mean 98 07/16/25 10:03 Pulse Oximetry 96 07/16/25 10:03 Oxygen Delivery Method Room Air 07/16/25 10:03 Vital Signs Temperature 97.7 F 07/16/25 10:03 Pulse Rate 78 07/16/25 10:03 Respiratory Rate 20 07/16/25 10:03 Blood Pressure 155/70 H 07/16/25 10:03 Pulse Oximetry 96 07/16/25 10:03 Oxygen Delivery Method Room Air 07/16/25 10:03 Temperature 97.7 F 07/16/25 10:03 Pulse Rate 78 07/16/25 10:03 Respiratory Rate 20 07/16/25 10:03 Blood Pressure 155/70 H 07/16/25 10:03 Pulse Oximetry 96 07/16/25 10:03 Oxygen Delivery Method Room Air 07/16/25 10:03 Medical Decision Making MDM Narrative Medical decision making narrative: At this point would recheck urine to verify need for antibiotics. Monitor for worsening allergy or intolerance. Appears safe at this point without need for emergent intervention. Over time of observation in the emergency department was without event. The color in her cheeks may have faded just a little bit. Urinalysis with a little white cells and red cells. Not inconsistent with recent procedure. Certain is possible she could be experiencing low level reaction to all the medications above as mentioned. Did review side effect profiles. I would favor gemcitabine. I would also reconsider need for ciprofloxacin beyond the intra/carmen procedural singular dosing. Urine culture will be pending See patient discharge plan for further discussion I appreciate your concern of a potential recurrent urinary tract infection. I would in this case though would wait for positive culture results which should be ready within 2 days. We will call you if it seems that you need treatment. Would also consider stopping your ciprofloxacin based on what we see here. Sometimes singular dosing of an antibiotic around procedure is also helpful in just decreasing chance for infection. Return though if this potential reaction seems to be expanding, you have worsening difficulty breathing or worsening throat tightness/difficulty swallowing or rashes popping out. Medical Records Medical records reviewed: Yes I reviewed the patient's medical records Lab Data Lab results reviewed: Yes I reviewed the patient's lab results Labs: Lab Results 07/16/25 Range/Units 11:01 Urine Color Yellow (Yellow) Urine Appearance Clear (Clear) Urine pH 6.0 (5.0-8.5) Ur Specific [place] 1.010 (1.000-1.030) Urine Protein 1+ A (Negative) Urine Glucose (UA) Negative (Negative) Urine Ketones Negative (Negative) Urine Blood 2+ A (Negative) Urine Nitrite Negative (Negative) Urine Bilirubin Negative (Negative) Urine Urobilinogen 0.2 (0.2-1.0) Ur Leukocyte Esterase 1+ A (Negative) Urine RBC 0-2 (0-2) Urine WBC 2-5 (0-5) Ur Squamous Epith Cells None (None-Few) Urine Bacteria Few A (None) Discharge Plan Discharge Clinical Impression: Medication reaction Patient Disposition: Home, Self-Care Condition: Stable Additional Instructions: I appreciate your concern of a potential recurrent urinary tract infection. I would in this case though would wait for positive culture results which should be ready within 2 days. We will call you if it seems that you need treatment. Would also consider stopping your ciprofloxacin based on what we see here. Sometimes singular dosing of an antibiotic around procedure is also helpful in just decreasing chance for infection. Return though if this potential reaction seems to be expanding, you have worsening difficulty breathing or worsening throat tightness/difficulty swallowing or rashes popping out. Prescriptions: No Action biotin 1,000 mcg tablet,chewable 1,000 mcg PO DAILY cholecalciferol (vitamin D3) 50 mcg (2,000 unit) capsule 50 mcg PO DAILY hydrochlorothiazide 12.5 mg capsule 12.5 mg PO DAILY Probacap 10 billion cell capsule 10 mg PO DAILY losartan [Cozaar] 50 mg tablet 50 mg PO DAILY metoprolol succinate 25 mg tablet extended release 24 hr 25 mg PO DAILY pravastatin 10 mg tablet 10 mg PO QHS trazodone 100 mg tablet 50 - 100 mg PO QHS PRN ciprofloxacin HCl 250 mg tablet 250 mg PO BID losartan 25 mg tablet 25 mg PO DAILY furosemide 20 mg tablet 20 mg PO Q1D oxybutynin chloride 5 mg tablet 5 mg PO BID oxycodone 5 mg tablet 5 mg PO QID PRN nitrofurantoin monohyd/m-cryst 100 mg capsule 1 cap PO Q12H Follow Up/Referrals: Omar Sousa MD [Primary Care Provider, Family Practice] Stand Alone Forms: [facility] Info Instructions
--- OUTSIDE RECORDS SUMMARY | 2025-07-16 11:01 | XMS_ITS | CCD ---
Author Name Interface, [id number] lity Address [address] [place] [address] [address] [place] [address] [facility] Address [facility] [address] [place] [address] Care Team Providers Care Ham Boner Name Role Phone Smita Liz MD Unavailable Unavailable Allergies and Adverse Reactions Care Plan Reason for Visit Encounters Functional Status Medications Problems Procedures Social History Vital Signs Notes Section
--- OUTSIDE RECORDS SUMMARY | 2025-07-16 11:01 | XMS_ITS ---
Author Name Interface, [id number] lity Address [address] [place] [address] [address] [place] [address] [facility] Address [address] [place] [address] [address] [place] [address] Allergies and Adverse Reactions Medication/Group Name Reaction Severity Date propoxyphene Nausea 01/02/2025 oxycodone HCl/acetaminophen Nausea 01/02/2025 hydrocodone bitartrate/acetaminophen Nausea 01/02/2025 acetaminophen Nausea 01/02/2025 Sodium Phosphate Nausea 01/02/2025 Plan Date Type Value 01/02/2025 APPOINTMENT SAMPLE EXAMINER FOLLOW UP 30 MIN 01/02/2025 APPOINTMENT SKILLED [...] LABORDER CT abdomen/pelvi s w/ contrast 05/14/2020 [facility] MRI thoracic spi ne w/ & w/o contrast 05/14/2020 [facility] X-ray hip, right 05/14/2020 [facility] MRI lumbar spine w/ & w/o contrast 05/14/2020 [facility] Creatinine panel , serum Reason for Visit SKILLED NURSING FOLLOW UP 30 MIN Encounters Date Name [...] (Unspecified formulation) Co mpleted 01/11/2021 Covid-19 vaccine (cFares) Completed Flu vaccine - Adult Comp leted Flu vaccine - Adult Comp leted Flu vaccine - Adult Comp leted Diagnostic Results Date Type Test Units Lower Limit Upper Limit Result Flag Comments Status Ordered By Specimen Source Lab Address 12/12 [facility] [place] lab See attache thakkar 07/14 [facility] [place] other lab See attache thakkar 11/21 [facility] [place] other lab See masking machine feeder d Medications Date Name Route Dose Frequency [...] Oral orally 2000.0 unit daily active Vit C,A-Pr-Nzakqu-Lute in-Zeaxan Oral 250 mg-90 mg-40 mg-1 mg [...]
--- OUTSIDE RECORDS SUMMARY | 2025-07-16 11:01 | XMS_ITS ---
Author Name Interface, [id number] lity Address [address] [place] [address] [facility] Address [address] [place] [address] Allergies and Adverse Reactions Plan Reason for Visit Encounters Immunizations Diagnostic Results Medications Problems Vital Signs
--- OUTSIDE RECORDS SUMMARY | 2025-07-16 11:01 | XMS_ITS | CCD ---
Author Name Interface, [id number] lity Address [address] [place] [address] [address] [place] [address] [facility] Address [facility] [address] [place] [address] Care Team Providers Care Dry Cleaning Checker Name Role Phone Smita Liz MD Unavailable Unavailable Allergies and Adverse Reactions Care Plan Reason for Visit Encounters Functional Status Medications Problems Procedures Social History Vital Signs Notes Section
--- OUTSIDE RECORDS SUMMARY | 2025-07-16 11:01 | XMS_ITS ---
Author Name Interface, [id number] lity Address [address] [place] [address] [facility] Address [address] [place] [address] Allergies and Adverse Reactions Plan Reason for Visit Encounters Medications Problems Vital Signs Notes Section
--- OUTSIDE RECORDS SUMMARY | 2025-07-16 11:01 | XMS_ITS ---
Author Name Interface, [id number] lity Address [address] [place] [address] [facility] Address [address] [place] [address] Allergies and Adverse Reactions Plan Reason for Visit Encounters Medications Problems Vital Signs Notes Section
--- OUTSIDE RECORDS SUMMARY | 2025-07-16 11:01 | XMS_ITS ---
Author Name Interface, [id number] lity Address [address] [place] [address] [facility] Address [address] [place] [address] Allergies and Adverse Reactions Plan Reason for Visit Encounters Immunizations Diagnostic Results Medications Problems Vital Signs
--- OUTSIDE RECORDS SUMMARY | 2025-07-16 11:01 | XMS_ITS ---
Author Name Interface, [id number] lity Address [address] [place] [address] [facility] Address [address] [place] [address] Allergies and Adverse Reactions Plan Reason for Visit Encounters Immunizations Diagnostic Results Medications Problems Vital Signs
--- OUTSIDE RECORDS SUMMARY | 2025-07-16 11:01 | XMS_ITS ---
Author Name Interface, [id number] lity Address [address] [place] [address] [facility] Address [address] [place] [address] Allergies and Adverse Reactions Plan Reason for Visit Encounters Immunizations Diagnostic Results Medications Problems Vital Signs
--- OUTSIDE RECORDS SUMMARY | 2025-07-16 11:02 | XMS_ITS ---
Author Name Interface, [id number] lity Address [address] [place] [address] [facility] Address [address] [place] [address] Allergies and Adverse Reactions Plan Reason for Visit Encounters Immunizations Diagnostic Results Medications Problems Vital Signs
--- OUTSIDE RECORDS SUMMARY | 2025-07-16 11:02 | XMS_ITS ---
Author Name Interface, [id number] lity Address [address] [place] [address] [facility] Address [address] [place] [address] Allergies and Adverse Reactions Plan Reason for Visit Encounters Immunizations Diagnostic Results Medications Problems Vital Signs
--- OUTSIDE RECORDS SUMMARY | 2025-07-16 11:02 | XMS_ITS ---
Author Name Interface, [id number] lity Address [address] [place] [address] [facility] Address [address] [place] [address] Allergies and Adverse Reactions Plan Reason for Visit Encounters Immunizations Diagnostic Results Medications Problems Vital Signs
[2025-07-16 11:03] LABS: Appearance Urine Clear (Clear)
== END 2025-07-16 12:29 | disposition home or self-care (01) ==
PROVIDERS: Emergency Provider Family Medicine; PCP Family Medicine
DX: R23.2 Flushing (principal); T36.8X5A Adverse effect of other systemic antibiotics, initial encounter; R82.79 Other abnormal findings on microbiological examination of urine
CPT/HCPCS: 81001; 87086; 99283; 99284